=== PATIENT | male | born 1960 | race Caucasian/White ===

== ENCOUNTER 2017-11-05 09:10 | Inpatient (IN) | payer MEDICARE, OTHER ==
[~2017-11-05] VITALS: Ht 182.9 cm; Wt 64.9 kg
[~2017-11-05 09:10] MED LIST: BACLOFEN20 MG PO; BISACODYL10 MG PR; GABAPENTIN400 MG PO; IMURAN50 M1 PO; LIORESAL 10MG T10 MG PO; MIRALAX17 GM PO; OS-CAL 500 + D1 TAB PO; OS-CAL 500+D 501 TAB PO; OSCAL D 500 MG PO; OXYCODONE5 MG PO; PREDNISONE50 MG PO; SENNA CON/DOCUS1 TAB PO; Senokot S PO; VITAMIN B11000 MCG/M SC; VITAMIN D1000 UNIT PO
--- NOTE | 2017-11-05 09:23 | ED MVC/FALL/TRAUMA COMPLAINT ---
History of Present Illness General Chief Complaint: Fall Stated Complaint: BIBA S/P FALL YESTERDAY Source: patient, old records, EMS Exam Limitations: no limitations Vital Signs & Intake/Output Vital Signs & Intake/Output Vital Signs Date Time Temp Pulse Resp B/P B/P Pulse O2 O2 Flow FiO2 Mean Ox Delivery Rate 11/05 1706 97.6 126 22 98/66 95 Room Air 11/05 1459 98.1 101 15 145/73 95 Room Air Room Air 11/05 1332 99.5 102 18 128/69 94 Room Air 11/05 1115 98.1 110 15 126/68 96 Room Air Room Air 11/05 1021 98.3 11/05 1021 Room Air Room Air 11/05 0918 98.3 116 16 126/75 97 Room Air Allergies Coded Allergies: mold (04/30/16) Reconcile Medications Azathioprine (Imuran) 50 MG TABLET 3 TAB PO DAILY MS (Reported) Baclofen 10 MG TABLET 1 TAB PO TID MS (Reported) Baclofen 20 MG TABLET 1 TAB PO TID MS (Reported) Gabapentin 400 MG CAPSULE 1 CAP PO TID MS (Reported) Ibuprofen 800 MG TABLET 1 TAB PO BID PAIN (Reported) Phenytoin Sodium Extended 100 MG CAPSULE 1 CAP PO TID MS (Reported) Tramadol HCl 50 MG TABLET 1 TAB PO TID MS (Reported) Triage Note: 57 Y/O MALE KIRK FROM HOME C/O FALL YESTERDAY AND LOW BACK PAIN. PER EMS, PT HAS MS AND LIVES ALONE BUT HAS AIDE/RECORDING ARTIST. PT REPORTS HX MS AND IS LEGALLY BLIND; REPORTS HE FELL YESTERDAY AND WAS UNABLE TO GET UP. EMS FOUND PT SITTING IN CHAIR WHEN THEY ARRIVED TODAY. PT ARRIVES C/O WORSENING BACK PAIN AND DIFFICULTY URINATING. PT ARRIVES INCONTINENT WITH FOUL SMELLING URINE. AWAITING EVAL. Triage Nurses Notes Reviewed? yes Onset: Abrupt Duration: day(s): (2), constant Timing: recent history Severity: moderate, severe Severity Numbers: 10 Injuries/Fall Location: back Method of Injury: fall Loss of Consciousness: no loss of consciousness No Modifying Factors: none Associated Symptoms: denies HPI: 57-year-old male with history of MS for which she is followed by Dr. Rivas, anemia, alcohol abuse legally blind presents complaining of bilateral lower back pain since yesterday. Patient states that he's been unable to walk for the past 2-3 days secondary to an MS exacerbation. While attempting to get up out of his chair and fell sliding down and hitting his lower back. On arrival the patient is tremulous tachycardic he states his last alcoholic drink was 4 days ago. He denies history of withdrawal seizures or DTs in the past. He denies any other injury from the fall. He did not hit his head there is no loss of consciousness. He denies any headache neck or upper back pain no chest pain abdominal pain nausea vomiting. There is no prodromal dizziness light has prior to the fall. He denies any arm or leg injury from the fall. The patient states he is normally tremulous and he states that the urinary incontinence he has had is not new. His last bowel movement was about a week ago which she states is normal for him no saddle anesthesia (Piero Clay) Past History Travel History Traveled to [place] past 21 day No Medical History Any Pertinent Medical History? see below for history Neurological: multiple sclerosis EENT: blindness Cardiovascular: NONE Respiratory: NONE Gastrointestinal: constipation Hepatic: NONE Renal: NONE Musculoskeletal: ms Psychiatric: NONE Endocrine: NONE Blood Disorders: anemia Cancer(s): NONE MANAGER CATEGORY/Reproductive: NONE History of MRSA: No History of VRE: No History of CDIFF: No Tetanus Vaccine: 04/30/16 Surgical History Surgical History: non-contributory Psychosocial History What is your primary language Yemeni Tobacco Use: Current Daily Use Daily Tobacco Use Amount/Type: =< 4 Cigarettes daily ETOH Use: alcoholic Family History Hx Contributory? No (Piero Clay) Review of Systems Review of Systems Constitutional: Reports: no symptoms, see HPI. Comments Review of systems: See HPI, All other systems negative. Constitutional, no chills no fever HEENT: no sore throat no congestion, no ear pain Cardiovascular: No chest pain , no palpitation Skin: no rashes, no change in skin Respiratory: No dyspnea no cough no sputum GI: No nausea no vomiting, no diarrhea, (+) constipation : No dysuria No hematuria, frequency Muscle skeletal: No joint pain, (+) back pain, no neck pain, Neurologic: , no headache Heme/endocrine: No bruising Immunology: No lymphadenopathy (Piero Clay) Physical Exam Physical Exam General Appearance: alert, awake Comments: Well-developed well-nourished person in no acute distress HEENT: Normal EENT exam; PERRL, EOMI, HEAD is atraumatic. moist mucous membranes. Neck: Supple, nontender normal range of motion without pain or tenderness Back: Bilateral paralumbar muscle tenderness palpation no ecchymosis no midline tenderness no CVA tenderness. Full range of motion Cardiovascular: Regular rate and rhythms no murmurs rubs or gallops, normal JVP Respiratory: Chest nontender.There were no bony deformities, no asymmetry. No respiratory distress. Patient speaking in full complete sentences. Breath sounds clear to auscultation bilaterally: NO W/R/R Abdomen: Soft, nontender nondistended, no appreciable organomegaly. Normal bowel sounds. No rebound/guarding, No appreciable enlargement of the abdominal aorta, No ascites. Extremity: No edema, full range of motion of extremities, normal and equal pulses bilaterally, 5 out of 5 strength noted to bilateral upper and lower extremities Neuro: Alert oriented x3, motor sensory normal, cranial nerves II through XII grossly intact. There were no obvious focal neurologic abnormalities. Skin: No appreciable rash on exposed skin, skin is warm and dry. Psych: Mood and affect is normal, memory and judgment is normal. Core Measures ACS in differential dx? Yes CVA/TIA Diagnosis No Sepsis Present: No Sepsis Focused Exam Completed? No (Chato CASTILLO,Piero) Progress Differential Diagnosis: C/T/L spine injury, ext injury, ICH, pelvis injury, spinal cord injury, etoh abuse. etoh withdrawal Plan of Care: Orders Procedure Date/time Status CBC WITHOUT DIFFERENTIAL 11/06 0600 Active BASIC ELECTROLYTES PLUS BUN&CR 11/06 0600 Active Regular Diet 11/05 D Active Weight 11/05 1703 Active Vital Signs 11/05 1703 Active Teach/Educate 11/05 170 Active Pain Treatment and Response 11/05 170 Active Nutritional Intake, Monitor 11/05 170 Active Isolation 11/05 1703 Active Intake & Output 11/05 1703 Active Patient Care Conference 11/05 1703 Active Activity/Ambulation 11/05 1703 Active Pathway - chart 11/05 1504 Active House Staff 11/05 1504 Active Patient Data 11/05 1504 Active Patient Data 11/05 1347 Active ED Holding Orders 11/05 1207 Active Admit to inpatient 11/05 1207 Active Vital Signs 11/05 1207 Active Code Status 11/05 1207 Active BLOOD CULTURE 11/05 1123 Active Intake & Output 11/05 0946 Active CIWA 11/05 0939 Active URINE DRUG SCREEN FOR ER ONLY 11/05 0934 Complete CULTURE,URINE 11/06 923 Active URINALYSIS 11/06 923 Complete TROPONIN LEVEL 11/06 923 Complete ETHANOL 11/06 923 Complete COMPREHENSIVE METABOLIC PANEL 11/06 923 Complete CREATINE PHOSPHOKINASE 11/06 923 Complete CBC WITHOUT DIFFERENTIAL 11/06 923 Complete EKG 11/05 920 Active VTE Mechanical Prophylaxis 11/05 UNK Active Current Medications Sig/Monica Start time Last Medication Dose Stop Time Status Admin Lubiprostone 24 MCG DAILY 11/05 1615 AC (Amitiza) Acetaminophen 1,000 MG TID 11/05 1515 AC 11/05 (Ofirmev) 11/06 1514 1702 Ibuprofen 800 MG BID PRN 11/05 1515 AC (Motrin) Azathioprine 150 MG DAILY 11/05 1505 AC (Imuran 50MG Tab) Baclofen 10 MG TID 11/05 1505 AC (Lioresal 10MG Tablet) Gabapentin 400 MG TID 11/05 1505 AC (Neurontin) Phenytoin 100 MG TID 11/05 1505 AC (Dilantin ER) Tramadol HCl 50 MG TID PRN 11/05 1505 AC (Ultram) Enoxaparin Sodium 40 MG DAILY 11/05 1504 AC (Lovenox) Laboratory Tests 11/05/17 1016: Urine Opiates Screen < 100, Methadone Screen < 40, Barbiturate Screen 65, Ur Phencyclidine Scrn < 6.00, Amphetamines Screen < 100, U Benzodiazepines Scrn < 85, Urine Cocaine Screen < 50, Urine Cannabis Screen < 5.00, Urinalysis LIGHT H , Urine Color YEL, Urine Clarity HAZY H, Urine pH 7.0, Ur Specific [place] 1.020, Urine Protein 100 H, Urine Ketones TRACE H, Urine Nitrite POS H, Urine Bilirubin NEG, Urine Urobilinogen 1.0, Ur Leukocyte Esterase MOD H, Ur Microscopic SEDIMENT EXAMINED, Urine RBC 5-10 H, Urine WBC PACKD H, Ur Epithelial Cells RARE, Urine Bacteria MANY H, Urine Hemoglobin MOD H, Urine Glucose NEG 11/05/17 0942: Anion Gap 11, Estimated GFR > 60, BUN/Creatinine Ratio 20.0, Glucose 119 H, Calcium 9.3, Total Bilirubin 0.7, AST 11 L, ALT 11 L, Alkaline Phosphatase 106 , Creatine Kinase 54 L, Troponin I 0.01, Total Protein 7.3, Albumin 4.2, Globulin 3.1, Albumin/Globulin Ratio 1.4, CBC w Diff NO MAN DIFF REQ, RBC 3.91 L, MCV 98.2 H, MCH 33.8 H, MCHC 34.5, RDW 16.1 H, MPV 7.9, Gran % 83.2 H, Lymphocytes % 9.1 L, Monocytes % 7.5, Eosinophils % 0.1, Basophils % 0.1, Absolute Granulocytes 5.9, Absolute Lymphocytes 0.6 L, Absolute Monocytes 0.5, Absolute Eosinophils 0, Absolute Basophils 0, Serum Alcohol < 10.0 Microbiology 11/05 1135 BLOOD: Blood Culture - RECD 11/05 1130 BLOOD: Blood Culture - RECD 11/05 1016 URINE ROUT: Urine Culture - RECD Labs ordered old records reviewed patient is declining anything for pain when offered call placed to dr rivas 11/05/2017 12:03:33 PM on repeat evaluation patient resting completely denies pain at this time with Tylenol discussed with him his CAT scan findings lab work given patient is unable to walk he is a fall risk premature discharge medically harmful if he is in agreement with for admission case d/w dr novoa will admit Diagnostic Imaging: Viewed by Me: CT Scan. Discussed w/RAD: CT Scan. Radiology Impression: PATIENT: DIANE THOMAS PRESENT AGE: 57 PATIENT ACCOUNT NO: [id number] : 62 LOCATION: [facility] ORDERING PHYSICIAN: Piero CASTILLO SERVICE DATE: 11/05/17 EXAM TYPE: CAT - CT HEAD WO IV CONTRAST EXAMINATION: CT HEAD WITHOUT CONTRAST CLINICAL INFORMATION: Fall. Back pain. COMPARISON: CT head 02/05/2016. TECHNIQUE: Contiguous axial imaging was performed from the skull base to vertex without intravenous administration of contrast. DLP: 795.68 mGy-cm FINDINGS: There is no acute intracranial hemorrhage or abnormal extra-axial collection. No intracranial mass effect or midline shift. Lateral and third ventricles are proportionate to the subarachnoid spaces. No hydrocephalus. Scattered foci of hypoattenuation are visualized within the periventricular white matter that most likely represent a chronic manifestation of small vessel ischemia. [place]-white matter differentiation is otherwise grossly preserved and there is no evidence of acute territorial infarct. The calvarium and skull base are intact. Mastoid air cells and middle ear cavities are well aerated. Visualized paranasal sinuses are well aerated. IMPRESSION: Scattered chronic small vessel ischemic changes within the periventricular white matter. No evidence of acute territorial infarct or hemorrhage. DICTATED BY: Jairo Duff MD DATE/TIME DICTATED:11/05/171133 JEWEL SORTER:JEFF DATE/TIME TRANSCRIBED:11/05/171133 CONFIDENTIAL, DO NOT COPY WITHOUT APPROPRIATE AUTHORIZATION. <Electronically signed in Other Vendor System> SIGNED BY: Jairo Duff MD 11/05/17 1140, PATIENT: DIANE THOMAS PRESENT AGE: 57 PATIENT ACCOUNT NO: [id number] : 62 LOCATION: [facility] ORDERING PHYSICIAN: Piero CASTILLO SERVICE DATE: 11/05/17 EXAM TYPE: CAT - CT LUMB SPINE WO IV CONTRAST EXAMINATION: CT LUMBAR SPINE WITHOUT CONTRAST CLINICAL INFORMATION: Low back pain status post fall. COMPARISON: Lumbar spine radiographs 06/29/2017. TECHNIQUE: Product Safety Coordinator images were obtained. CT acquisition of the lumbar spine was performed without intravenous administration of contrast. Data was reformatted into multiplanar images at the acquisition workstation. DLP: 413.77 mGy-cm FINDINGS: There is a stable appearance of the compression deformities involving T12 and L1 when compared to the lumbar spine radiographs from 06/29/2017. There are new compression fractures at L2 and L4. At L2 there is impaction of the lower endplate resulting in 50% vertebral body height loss centrally. There is subtle buckling of the posterior lower corner of the L2 vertebral body causing indentation of the ventral thecal sac. No substantial anterior wedging. At L4 there is impaction of the upper endplate resulting in 30% vertebral body height loss centrally and slight anterior wedging. No overt retropulsion of the posterior cortex. There is no spinal subluxation. Sacroiliac joints are symmetric. Limited visualization of the retroperitoneal structures reveals calcified atheromatous plaque involving abdominal aorta and iliac vessels. Psoas and paraspinal muscle groups are symmetric. IMPRESSION: There are new compression fractures of the L2 and L4 vertebral body when compared to the lumbar spine radiographs from 06/29/2017. Existing compression deformities involving T12 and L1 are unchanged. DICTATED BY: Jairo Duff MD DATE/TIME DICTATED:11/05/171135 JEWEL SORTER:JEFF DATE/TIME TRANSCRIBED:1135 CONFIDENTIAL, DO NOT COPY WITHOUT APPROPRIATE AUTHORIZATION. < Electronically signed in Other Vendor System> SIGNED BY: Jairo Duff MD 11/05/17 1146 Initial ED EKG: stach at 110, rbbb, no acute st seg changes (Piero Clay) Departure Departure Time of Disposition: 1203 Disposition: STILL A PATIENT Condition: Stable Clinical Impression Primary Impression: Compression fracture of L2 Secondary Impressions: Compression fracture of L4 lumbar vertebra, Exacerbation of multiple sclerosis, Gait instability, UTI (urinary tract infection) Referrals: Anita Ramirez MD (PCP/Family) Departure Forms: Customer Survey General Discharge Information Admission Note Spoke With: Alexandra Novoa MD Documentation of Exam: Documentation of any treatments & extenuating circumstances including Concerns Regarding Discharge (functional status, medication knowledge or non-compliance, living conditions, etc.) that warrant an admission rather than observation: [IV pain control trend labs, physical therapy and neurology consult patient is unable to walk secondary to MS exacerbation and back pain premature discharge would BE medically harmful (Piero Clay) PA/SCIENTIFIC SOFTWARE DEVELOPER Co-Sign Statement Statement: ED Attending supervision documentation- [X] I saw and evaluated the patient. I have also reviewed all the pertinent lab results and diagnostic results. I agree with the findings and the plan of care as documented in the PA's/SCIENTIFIC SOFTWARE DEVELOPER's documentation. [X] I have reviewed the ED Record and agree with the PA's/SCIENTIFIC SOFTWARE DEVELOPER's documentation. [] Additions or exceptions (if any) to the PAs/SCIENTIFIC SOFTWARE DEVELOPER's note and plan are summarized below: [Patient has multiple sclerosis. Patient is unable to ambulate. Patient has a compression fracture. Patient will require admission for MS exacerbation as well as pain control. He will need consult for Grant Rivas MD as well as physical therapy.] (Rory DIAZ,Woody Briceño) (Rory DIAZ,Woody Briceño)
[2017-11-05 10:12] LABS: ABSOLUTE BASOPHIL COUNT 0 /CUMM (0.0-0.2); ABSOLUTE EOSINOPHIL COUNT 0 /CUMM (0.0-0.7); ABSOLUTE GRANULOCYTE CT 5.9 /CUMM (1.4-6.5); ABSOLUTE LYMPH COUNT 0.6 /CUMM (1.2-3.4); ABSOLUTE MONOCYTE COUNT 0.5 /CUMM (0.10-0.60); BASOPHIL % 0.1 % (0.0-2.0); EOSINOPHIL % 0.1 % (0-5); HEMATOCRIT 38.4 % (42-52); MEAN CORPUSCULAR HGB 33.8 PG (27.0-31.0); MEAN CORPUSCULAR HGB CONC 34.5 G/DL (33.0-37.0); MEAN CORPUSCULAR VOLUME 98.2 FL (80.0-94.0); MEAN PLATELET VOLUME 7.9 FL (7.4-10.4); PLATELET COUNT 206 /CUMM (130-400); RBC DISTRIBUTION WIDTH 16.1 % (11.5-14.5); RED BLOOD CELL CT 3.91 /CUMM (4.70-6.10); WHITE BLOOD CELL COUNT 7.1 /CUMM (4.8-10.8)
[2017-11-05] MEDS ORDERED: IBUPROFEN800 M1 PO (10:40)
[2017-11-05] MEDS ORDERED: TRAMADOL HCL50 M1 PO (10:40)
[2017-11-05] MEDS ORDERED: PHENYTOIN SODI100 MG PO (10:41)
[2017-11-05] MEDS ORDERED: GABAPENTIN400 M2 PO (10:43)
[2017-11-05] MEDS ORDERED: BACLOFEN10 M1 PO (10:43)
[2017-11-05] MEDS ORDERED: BACLOFEN20 M1 PO (10:43)
[2017-11-05 11:03] LABS: GRANULOCYTE % 83.2 % (42.2-75.2)
--- NOTE | 2017-11-05 11:40 | CT SCAN REPORT ---
EXAMINATION: CT HEAD WITHOUT CONTRAST CLINICAL INFORMATION: Fall. Back pain. COMPARISON: CT head 02/05/2016. TECHNIQUE: Contiguous axial imaging was performed from the skull base to vertex without intravenous administration of contrast. DLP: 795.68 mGy-cm FINDINGS: There is no acute intracranial hemorrhage or abnormal extra-axial collection. No intracranial mass effect or midline shift. Lateral and third ventricles are proportionate to the subarachnoid spaces. No hydrocephalus. Scattered foci of hypoattenuation are visualized within the periventricular white matter that most likely represent a chronic manifestation of small vessel ischemia. [place]-white matter differentiation is otherwise grossly preserved and there is no evidence of acute territorial infarct. The calvarium and skull base are intact. Mastoid air cells and middle ear cavities are well aerated. Visualized paranasal sinuses are well aerated. IMPRESSION: Scattered chronic small vessel ischemic changes within the periventricular white matter. No evidence of acute territorial infarct or hemorrhage.
--- NOTE | 2017-11-05 11:46 | CT SCAN REPORT ---
EXAMINATION: CT LUMBAR SPINE WITHOUT CONTRAST CLINICAL INFORMATION: Low back pain status post fall. COMPARISON: Lumbar spine radiographs 06/29/2017. TECHNIQUE: Oil Well Services Supervisor images were obtained. CT acquisition of the lumbar spine was performed without intravenous administration of contrast. Data was reformatted into multiplanar images at the acquisition workstation. DLP: 413.77 mGy-cm FINDINGS: There is a stable appearance of the compression deformities involving T12 and L1 when compared to the lumbar spine radiographs from 06/29/2017. There are new compression fractures at L2 and L4. At L2 there is impaction of the lower endplate resulting in 50% vertebral body height loss centrally. There is subtle buckling of the posterior lower corner of the L2 vertebral body causing indentation of the ventral thecal sac. No substantial anterior wedging. At L4 there is impaction of the upper endplate resulting in 30% vertebral body height loss centrally and slight anterior wedging. No overt retropulsion of the posterior cortex. There is no spinal subluxation. Sacroiliac joints are symmetric. Limited visualization of the retroperitoneal structures reveals calcified atheromatous plaque involving abdominal aorta and iliac vessels. Psoas and paraspinal muscle groups are symmetric. IMPRESSION: There are new compression fractures of the L2 and L4 vertebral body when compared to the lumbar spine radiographs from 06/29/2017. Existing compression deformities involving T12 and L1 are unchanged.
--- NOTE | 2017-11-05 15:04 | History & Physical ---
[facility] 11[facility]05/17 1458: General Information and HPI MD Statement: I have seen and personally examined DIANE THOMAS and documented this H&P. The patient is a 57 year old M who presented with a patient stated chief complaint of back pain []. Source of Information: patient, old records Exam Limitations: no limitations History of Present Illness: 57 YO M legally blind, smoker (2 packs/d since the age of 13) with PMH of multiple sclerosis, constipation and chronic anemia presented to ED with chief complaint of back pain after fall. Patient reported that since yesterday he was in his usual state of health when he was trying to sit in the chair and he slipped from it and fell down. He hit his back on the floor and suddenly he noticed having pain in the back, 8/10 aggravated with movement and relieved with medication. Patient reported that he is wheelchair-bound and living in house. He has assistant chief nursing officer who helps him during the day. He reported that his neighbors helping him with shopping and cooking. Patient also reported that he is drinking alcohol for a long time and his last drink was a week ago. Patient also reported that he has constipation and his usual bowel movement is once a week or sometimes once every 2 weeks[address] Patient is seeing Dr. Muñoz for his multiple sclerosis. Patient denied chest pain, palpitation, nausea, vomiting, chills, fever, abdominal pain, lightheadedness, shortness of breath, orthopnea and dysuria. Patient denied any admission with alcohol induced seizure in the past. Patient reported that he urinates 3 times a day. Family history is not relevant. Last echocardiogram was done in 2014 with ejection fraction 60% with mild left ventricle hypertrophy. Last time he was admitted 2013 with back pain after fall. ED course: Vitals: Temperature 98.3, pulse 116, respiratory rate 16, blood pressure 126/75, oxygen saturation 97% room air Labs: WBC count 7.1, hemoglobin 13.2, hematocrit 38.4, platelet count 206, sodium 138, potassium 4.1, BUN 16, creatinine 0.8, anion gap 11, glucose 119, creatinine kinase 54, troponin 0.01, AST 11, ALT 11 Allergies/Medications Allergies: Coded Allergies: mold (04/30/16) Home Med list Azathioprine (Imuran) 50 MG TABLET 3 TAB PO DAILY MS (Reported) Baclofen 10 MG TABLET 1 TAB PO TID MS (Reported) Baclofen 20 MG TABLET 1 TAB PO TID MS (Reported) Gabapentin 400 MG CAPSULE 1 CAP PO TID MS (Reported) Ibuprofen 800 MG TABLET 1 TAB PO BID PAIN (Reported) Phenytoin Sodium Extended 100 MG CAPSULE 1 CAP PO TID MS (Reported) Tramadol HCl 50 MG TABLET 1 TAB PO TID MS (Reported) Past History Travel History Traveled to [place] past 21 day No Medical History Neurological: multiple sclerosis EENT: blindness Cardiovascular: NONE Respiratory: NONE Gastrointestinal: constipation Hepatic: NONE Renal: NONE Musculoskeletal: ms Psychiatric: NONE Endocrine: NONE Blood Disorders: anemia Cancer(s): 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 EENTM: Reports: no symptoms. Cardiovascular: Denies: chest pain, palpitations, syncope. Respiratory: Denies: cough, orthopnea, short of breath, sputum production. GI: Reports: constipation. Denies: abdominal pain, diarrhea, bowel incontinence, nausea. Genitourinary: Reports: no symptoms. Musculoskeletal: Reports: back pain. Neurological/Psychological: Reports: no symptoms. Exam & Diagnostic Data Last 24 Hrs of Vital Signs/I&O Vital Signs Date Time Temp Pulse Resp B/P B/P Pulse O2 O2 Flow FiO2 Mean Ox Delivery Rate 11/05 1332 99.5 102 18 128/69 94 Room Air 11/05 1115 98.1 110 15 126/68 96 Room Air Room Air 11/05 1021 98.3 11/05 1021 Room Air Room Air 11/05 0918 98.3 116 16 126/75 97 Room Air Intake & Output 11/05 1600 11/05 0800 11/05 0000 Intake Total Output Total Balance Patient 155 lb Weight Weight Reported by Patient Measurement Method Physical Exam General Appearance Alert, Oriented X3, Cooperative Skin No Rashes Skin Temp/Moisture Exam: Warm/Dry Sepsis Skin Exam (color): Normal for Ethnicity HEENT Atraumatic Neck Supple Cardiovascular Normal S1, Normal S2 Lungs Clear to Auscultation Abdomen Soft, No Tenderness Neurological Lower extrimity 3/5 b/l, trmors b/l hands, speech impairment Extremities NO edema of legs but b/l feet grade 1 edema. Last 24 Hrs of Labs/Julián: Laboratory Tests 11/05/17 1016: Urine Opiates Screen < 100, Methadone Screen < 40, Barbiturate Screen 65, Ur Phencyclidine Scrn < 6.00, Amphetamines Screen < 100, U Benzodiazepines Scrn < 85, Urine Cocaine Screen < 50, Urine Cannabis Screen < 5.00, Urinalysis LIGHT H , Urine Color YEL, Urine Clarity HAZY H, Urine pH 7.0, Ur Specific [place] 1.020, Urine Protein 100 H, Urine Ketones TRACE H, Urine Nitrite POS H, Urine Bilirubin NEG, Urine Urobilinogen 1.0, Ur Leukocyte Esterase MOD H, Ur Microscopic SEDIMENT EXAMINED, Urine RBC 5-10 H, Urine WBC PACKD H, Ur Epithelial Cells RARE, Urine Bacteria MANY H, Urine Hemoglobin MOD H, Urine Glucose NEG 11/05/17 0942: Anion Gap 11, Estimated GFR > 60, BUN/Creatinine Ratio 20.0, Glucose 119 H, Calcium 9.3, Total Bilirubin 0.7, AST 11 L, ALT 11 L, Alkaline Phosphatase 106 , Creatine Kinase 54 L, Troponin I 0.01, Total Protein 7.3, Albumin 4.2, Globulin 3.1, Albumin/Globulin Ratio 1.4, CBC w Diff NO MAN DIFF REQ, RBC 3.91 L, MCV 98.2 H, MCH 33.8 H, MCHC 34.5, RDW 16.1 H, MPV 7.9, Gran % 83.2 H, Lymphocytes % 9.1 L, Monocytes % 7.5, Eosinophils % 0.1, Basophils % 0.1, Absolute Granulocytes 5.9, Absolute Lymphocytes 0.6 L, Absolute Monocytes 0.5, Absolute Eosinophils 0, Absolute Basophils 0, Serum Alcohol < 10.0 Microbiology 11/05 1135 BLOOD: Blood Culture - RECD 11/05 1130 BLOOD: Blood Culture - RECD 11/05 1016 URINE ROUT: Urine Culture - RECD Assessment/Plan Assessment: 57 YO M legally blind, smoker (2 packs/d since the age of 13) with PMH of multiple sclerosis, constipation and chronic anemia presented to ED with chief complaint of back pain after fall. Patient reported that since yesterday he was in his usual state of health when he was trying to sit in the chair and he slipped from it and fell down. Wer will admitting the patient on general medicine floor to treat for following problems: Lumbar spine compression fracture after the fall: -Patient had mechanical fall and on imaging study he has L2 and L4 vertebral body compression fracture. -Pain management with IV Tylenol and tramadol -Goals of care needs to be discussed. Urine analysis: -Increased wbc count although patient is asymptomatic. -F/U urine culture -Observe off antibiotics. Constipation: -His normal routine is once a week or sometimes once every two weeks. -We will start laxatives. History of MS: -Patient has baseline speech impairment and decreased power in b/l legs. -Continue gabapentin for neuropathic pain -Continue baclofen for spasms -Continue azathioprine DVT prophylaxis: Mechanical and subtenons Lovenox CODE STATUS: Full code As Ranked By This Provider Problem List: 1. Fall 2. Vertebral compression fracture Core Measures/Misc (03/08) Acute Coronary Syndrome ACS Diagnosis: No Congestive Heart Failure Congestive Heart Failure Diagnosis No Cerebrovascular Accident CVA/TIA Diagnosis: No VTE (View Protocol) VTE Risk Factors Smoker No Mechanical VTE Prophylaxis d/t N/A MechProphylax Ordered No VTE Pharm Prophylaxis d/t NA PharmProphylax ordered Sepsis (View protocol) Sepsis Present: No Yisel Watts 11/05/17 1558: Resident Review Statement Resident Statement: examined this patient, discussed with international marketing coordinator Other Findings: Patient is a 57-year-old legally blind man with a past medical history significant for chronic MS wheelchair-bound, history of refractory constipation, conjunctivae day smoker presented to the ED after a mechanical fall. Patient reported that yesterday, while trying to sit in the chair he slipped and fell on his back. Denied any dizziness lightheadedness before and after the fall. After the fall he started having severe 8 /10 pain in the lower back, aggravated with motion, couldn't able to get up and call 911 for help. In the ER patient was noted to have excruciating low back pain and CAT scan of the lumbar spine revealed new compression fractures of the L2 and L4 vertebral body when compared to the lumbar spine radiographs from 06/29/2017. At the time of evaluation patient was lying still in the bed, reported constant lower back pain. Denies any shortness of breath palpitations chest discomfort. No nausea vomiting reported severe constipation(on amitiza). He is occasional drinker smokes on a daily basis, wheelchair-bound with aide at home Vitals on admission unremarkable to pressure 98.3,, pulse 116, respiratory rate 16, blood pressure 126/75, oxygen saturation 97% room air. General Appearance: Alert, No Acute Distress Skin: Grossly normal HEENT: PEERLA Neck: Supple, No JVD Cardiovascular: Regular Rate, Normal S1, Normal S2, No Murmurs Lungs: Clear to Auscultation, Normal Air Movement Abdomen: Normal Bowel Sounds, slight abdominal tenderness. Neurological: Slurring/difficulty in uttering words, motor strength 5 out of 5 in the upper extremities 2+5 in the lower extremities bilaterally. Sensations intact. Extremities: No swelling in the legs Vascular: Normal Pulses Assessment Severe lower back pain(New compression fractures of the L2 and L4)-status post mechanical fall Abnormal urinalysis History of MS Plan Severe lower back pain(New compression fractures of the L2 and L4)-status post mechanical fall: * Admit the patient on [facility] floor. * Adequate pain control was with the patient on scheduled IV Tylenol 1 g 3 times a day. * Physical therapy evaluation tomorrow morning patient will likely benefit from STR. * The patient continues to remain severe back pain Will consider obtaining MRI of the back and further management with vertebroplasty in future. Abnormal urinalysis: * Currently patient doesn't seem to have symptoms of any underlying urinary tract infection is urinalysis has not been changed much from previous results except for slight increase in WBC count so we will watch him off antibodies for now.. History of MS * Continue all home medications. History of severe refractory constipation * Continue amitiza DVT prophylaxis with Lovenox Pain controlled with Tylenol patient is full code
--- NOTE | 2017-11-05 16:18 | Admission Certification ---
Admission Certification Certification Statement - As attending physician, I certify that at the time of - admission, based on clinical presentation, severity of - symptoms, need for further diagnostic testing and - therapeutic interventions, and risk of adverse outcomes - without in-hospital treatment, in my clinical assessment, - this patient requires an acute hospital stay for a minimum - of two nights or longer. I have also considered psychsocial - factors such as support system, advanced age, financial - issues, cognitive issues, and failed out-patient treatments, - past re-admission history, safety of patient, and lack of - compliance as applicable. Specific rationale supporting this admission is: Fall and new compression fracture of L2 L4
--- NOTE | 2017-11-05 16:18 | PN- Att Addend ---
Attending Addendum Attending Brief Note Patient seen and examined in the emergency room. Plan of care discussed with the medical team and the patient. Available lab work and radiology test reports were reviewed. Patient is 47-year-old male with history of multiple sclerosis will be chair bound and lives by himself and has a part-time aide for assistance. He came to ED today after suffering a fall yesterday and complains of low back pain. Patient also is legally blind. Patient had difficulty transferring. Patient does not report any change in the smell of the urine. Because of legal blindness is not able to see whether urine color has changed. He does not report any recent fever chills or any abdominal pain nausea. He reports occasional vomiting but that is not new. 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 Vital Signs Date Time Temp Pulse Resp B/P B/P Pulse O2 O2 Flow FiO2 Mean Ox Delivery Rate 11/05 1459 98.1 101 15 145/73 95 Room Air Room Air 11/05 1332 99.5 102 18 128/69 94 Room Air 11/05 1115 98.1 110 15 126/68 96 Room Air Room Air 11/05 1021 98.3 11/05 1021 Room Air Room Air 11/05 0918 98.3 116 16 126/75 97 Room Air Intake & Output 11/05 1600 11/05 0800 11/05 0000 Intake Total Output Total Balance Patient 155 lb Weight Weight Reported by Patient Measurement Method Exam: General: Patient awake alert oriented without any distress CVS: S1 plus S2 without any murmur or gallops Chest: Few scattered crepitation without any wheeze. There is no respiratory distress. Abdomen: Soft non-tender, bowel sound present, no guarding or rebound HAND SIZER: Awake alert oriented is significant speech difficulty; has trouble finding words and was noted to be stuttering Extremities: No edema; no clubbing or cyanosis noted Laboratory Tests 11/05/17 1016: Urine Opiates Screen < 100, Methadone Screen < 40, Barbiturate Screen 65, Ur Phencyclidine Scrn < 6.00, Amphetamines Screen < 100, U Benzodiazepines Scrn < 85, Urine Cocaine Screen < 50, Urine Cannabis Screen < 5.00, Urinalysis LIGHT H , Urine Color YEL, Urine Clarity HAZY H, Urine pH 7.0, Ur Specific [place] 1.020, Urine Protein 100 H, Urine Ketones TRACE H, Urine Nitrite POS H, Urine Bilirubin NEG, Urine Urobilinogen 1.0, Ur Leukocyte Esterase MOD H, Ur Microscopic SEDIMENT EXAMINED, Urine RBC 5-10 H, Urine WBC PACKD H, Ur Epithelial Cells RARE, Urine Bacteria MANY H, Urine Hemoglobin MOD H, Urine Glucose NEG 11/05/17 0942: Anion Gap 11, Estimated GFR > 60, BUN/Creatinine Ratio 20.0, Glucose 119 H, Calcium 9.3, Total Bilirubin 0.7, AST 11 L, ALT 11 L, Alkaline Phosphatase 106 , Creatine Kinase 54 L, Troponin I 0.01, Total Protein 7.3, Albumin 4.2, Globulin 3.1, Albumin/Globulin Ratio 1.4, CBC w Diff NO MAN DIFF REQ, RBC 3.91 L, MCV 98.2 H, MCH 33.8 H, MCHC 34.5, RDW 16.1 H, MPV 7.9, Gran % 83.2 H, Lymphocytes % 9.1 L, Monocytes % 7.5, Eosinophils % 0.1, Basophils % 0.1, Absolute Granulocytes 5.9, Absolute Lymphocytes 0.6 L, Absolute Monocytes 0.5, Absolute Eosinophils 0, Absolute Basophils 0, Serum Alcohol < 10.0 Microbiology 11/05 1135 BLOOD: Blood Culture - RECD 11/05 1130 BLOOD: Blood Culture - RECD 11/05 1016 URINE ROUT: Urine Culture - RECD Lumbar CT scan There are new compression fractures of the L2 and L4 vertebral body when compared to the lumbar spine radiographs from 06/29/2017. Existing compression deformities involving T12 and L1 are unchanged. Head CT scan Scattered chronic small vessel ischemic changes within the periventricular white matter. No evidence of acute territorial infarct or hemorrhage. Assessment and problem list * Fall * Back pain with compression fractures of L2 and L4 * Difficulty transferring due to back pain * History of MS Plan * Patient does not report any symptoms or signs consistent with UTI, his UA appears to have normal change except for increased amount her WBCs. Therefore I will opt to watch him conservatively without any antibiotics. * Continue all home medications * PT eval to assess transfer ability * Add Tylenol or Motrin for pain control; if patient's pain is not well controlled and he continues to have severe back pain we may need to consider vertebroplasty in near future. He may need MRI to assess age of these compression fractures.
[2017-11-05 17:06] VITALS: BP 98/66
[2017-11-05 19:00] VITALS: BP 98/60
[2017-11-05 22:44] VITALS: BP 80/40
[2017-11-06] VITALS (9 sets, daily range): BP systolic 94–118; BP diastolic 56–62
--- NOTE | 2017-11-06 07:10 | PN- Housestaff ---
Subjective Follow-up For: Lumbar vertebral compression fracture after a mechanical fall. Subjective: Patient remained afebrile. Seen and examined this morning. He denied chest pain, palpitation, nausea, vomiting, chills, fever, abdominal pain and dysuria. Patient reported having back pain 8/10 and it's increasing with movement. Last night his blood pressure was dropped and he was given a bolus of normal saline after that his blood pressure is within normal limits. Right now he is hemodynamically stable alert and oriented and cooperative. We will talk to him about vertebroplasty if patient wishes to follow the treatment we will talk to IR if he qualifies for that procedure. She reported that last time he had backache and he used a lumbar brace that helped his back pain and after 2 months he discontinued using that lumbar support. Patient has baseline speech impairment due to MS that's why he has trouble in articulation. His lower extremity power is 34 x 5 as he is able to move against gravity by himself. Possibly his back pain limits his lower extremity movements. Review of Systems Constitutional: Denies: chills, fever. EENTM: Reports: no symptoms. Cardiovascular: Denies: chest pain, palpitations, syncope. Respiratory: Denies: cough, short of breath, sputum production. Gastrointestinal: Reports: constipation. Denies: abdominal pain, diarrhea, nausea, vomiting. Genitourinary: Reports: no symptoms. Musculoskeletal: Reports: back pain. Neurological/Psychological: Reports: see HPI. Objective Last 24 Hrs of Vital Signs/I&O Vital Signs Date Time Temp Pulse Resp B/P B/P Pulse O2 O2 Flow FiO2 Mean Ox Delivery Rate 11/06 0656 97.8 83 20 116/62 94 11/06 0600 97.8 83 20 116/62 11/06 0200 97.7 88 20 100/60 11/06 0021 97.6 87 18 94/60 95 0518 0000 97.6 87 18 94/60 11/05 2244 98.9 102 20 80/40 94 Room Air 11/05 1900 98.7 115 18 98/60 94 Room Air 11/05 1706 97.6 126 22 98/66 95 Room Air 11/05 1459 98.1 101 15 145/73 95 Room Air Room Air 11/05 1332 99.5 102 18 128/69 94 Room Air 11/05 1115 98.1 110 15 126/68 96 Room Air Room Air 11/05 1021 98.3 11/05 1021 Room Air Room Air Intake & Output 11/06 1600 11/06 0800 11/06 0000 Intake Total 620 200 Output Total Balance 620 200 Intake, IV 500 Intake, Oral 120 200 Patient 144 lb Weight Physical Exam General Appearance: Alert, Cooperative Skin: No Rashes Skin Temp/Moisture Exam: Warm/Dry Sepsis Skin Exam (color): Normal for Ethnicity HEENT: Atraumatic Neck: Supple Cardiovascular: Normal S1, Normal S2 Lungs: Clear to Auscultation Abdomen: Soft, No Tenderness Neurological: SPEECH IMPAIRMENT DUE TO MS, B/L LOWER 3-4/5 Extremities: No Edema Current Medications: Current Medications Sig/Monica Start time Last Medication Dose Route Stop Time Status Admin Acetaminophen 1,000 MG TID 11/05 1515 AC 11/06 IV 11/06 1514 0841 Acetaminophen 0 .STK-MED ONE 11/05 1017 DC IV Acetaminophen 1,000 MG ONCE ONE 11/05 1015 CO 11/05 N/A 1 UNIT IV 11/05 1029 1021 Alendronate Sodium 70 MG QFRI 11/06 0900 AC PO Azathioprine 150 MG DAILY 11/05 1505 AC 11/06 PO 0841 Baclofen 10 MG TID 11/05 1505 11/06 PO 0841 Ceftriaxone Sodium 0 .STK-MED ONE 11/05 1126 DC .ROUTE Ceftriaxone Sodium 1,000 MG ONCE ONE 11/05 1115 DC 11/05 IV 11/05 1116 1138 Enoxaparin Sodium 40 MG DAILY 11/05 1504 11/06 SC 0841 Gabapentin 400 MG TID 11/05 1505 AC 11/06 PO 0851 Ibuprofen 800 MG BID PRN 11/05 1515 AC 11/06 PO 0326 Ketorolac 30 MG ONCE ONE 11/05 1130 DC 11/05 Tromethamine IV 11/05 1131 1138 Ketorolac 0 .STK-MED ONE 11/05 1126 DC Tromethamine .ROUTE Lubiprostone 24 MCG DAILY 11/05 1615 AC 11/06 PO 0841 Phenytoin 100 MG TID 11/05 1505 11/06 PO 0841 Sodium Chloride 1,000 ML Q13H 11/06 0900 AC IV Sodium Chloride 500 ML BOLUS ONE 11/05 2300 DC 11/05 IV 11/05 2359 2301 Tramadol HCl 50 MG TID PRN 11/06 0900 AC PO Tramadol HCl 50 MG TID PRN 11/05 1505 DC 11/05 PO 2038 Last 24 Hrs of Lab/Julián Results Last 24 Hrs of Labs/Mics: Laboratory Tests 11/06/17 0807: Anion Gap 10, Estimated GFR > 60, BUN/Creatinine Ratio 22.9, CBC w Diff NO MAN DIFF REQ, RBC 3.18 L, MCV 98.9 H, MCH 33.7 H, MCHC 34.0, RDW 16.6 H, MPV 8.2 , Gran % 77.9 H, Lymphocytes % 11.1 L, Monocytes % 9.6 H, Eosinophils % 1.0, Basophils % 0.4, Absolute Granulocytes 3.6, Absolute Lymphocytes 0.5 L, Absolute Monocytes 0.4, Absolute Eosinophils 0, Absolute Basophils 0 Microbiology 11/05 1135 BLOOD: Blood Culture - RECD 11/05 113 BLOOD: Blood Culture - RECD Assessment/Plan Assessment: 57 YO M legally blind, smoker (2 packs/d since the age of 13) with PMH of multiple sclerosis, constipation and chronic anemia presented to ED with chief complaint of back pain after fall. Patient reported that since yesterday he was in his usual state of health when he was trying to sit in the chair and he slipped from it and fell down. We are seeing the patient for following problems: Lumbar spine compression fracture after the fall: -Patient had mechanical fall and on imaging study he has L2 and L4 vertebral body compression fracture. -Pain management with IV Tylenol and tramadol -Goals of care needs to be discussed. -We will discuss with patient about the option of vertebroplasty if patient wishes to seek that treatment options and we will have to do MRI of his back to see age of this compression fracture. We will talk to radiology about vertebroplasty if patient qualifies for that treatment option than we will follow that option. Urine analysis: -Normal WBC count. He remained afebrile and no urinary symptoms. -F/U urine culture -Observe off antibiotics. Constipation: -His normal routine is once a week or sometimes once every two weeks. -Continue laxatives. History of MS: -Patient has baseline speech impairment and decreased power in b/l legs. -Continue gabapentin for neuropathic pain -Continue baclofen for spasms -Continue azathioprine History of osteoporosis: -Patient was on alendronate in the past due to osteoporosis probably steroid- induced. -We will continue alendronate. DVT prophylaxis: Mechanical and subtenons Lovenox CODE STATUS: Full code Problem List: 1. Fall 2. Vertebral compression fracture Pain Ratin Pain Location: back Pain Goal: Remain pain free Pain Plan: pain pathway Tomorrow's Labs & Rationales: none
[2017-11-06 09:06] LABS: ABSOLUTE BASOPHIL COUNT 0 /CUMM (0.0-0.2); ABSOLUTE EOSINOPHIL COUNT 0 /CUMM (0.0-0.7); ABSOLUTE GRANULOCYTE CT 3.6 /CUMM (1.4-6.5); ABSOLUTE LYMPH COUNT 0.5 /CUMM (1.2-3.4); ABSOLUTE MONOCYTE COUNT 0.4 /CUMM (0.10-0.60); GRANULOCYTE % 77.9 % (42.2-75.2); MEAN PLATELET VOLUME 8.2 FL (7.4-10.4); WHITE BLOOD CELL COUNT 4.6 /CUMM (4.8-10.8)
[2017-11-06 09:23] LABS: BASOPHIL % 0.4 % (0.0-2.0); MEAN CORPUSCULAR HGB 33.7 PG (27.0-31.0); MEAN CORPUSCULAR VOLUME 98.9 FL (80.0-94.0); PLATELET COUNT 139 /CUMM (130-400); RBC DISTRIBUTION WIDTH 16.6 % (11.5-14.5); RED BLOOD CELL CT 3.18 /CUMM (4.70-6.10)
[2017-11-06 09:25] LABS: HEMATOCRIT 31.5 % (42-52)
--- NOTE | 2017-11-06 14:04 | Discharge Summary ---
Visit Information Visit Dates Admission Date: 11/05/17 Discharge Date: 11/09/17 Hospital Course Course Attending Physician: Bonnie DIAZ,Kip Primary Care Physician: Anita Ramirez MD Hospital Course: Patient is a 57-year-old legally blind man with a past medical history significant for chronic MS wheelchair-bound, history of refractory constipation, current everyday smoker presented to the ED after a mechanical fall. In the ER patient was noted to have excruciating low back pain and CAT scan of the lumbar spine revealed new compression fractures of the L2 and L4 vertebral body when compared to the lumbar spine radiographs from 06/29/2017. Vitals on admission were stable Pertinent labs on admission: Labs: No evidence of leukocytosis H&H stable with platelet count 206 normal BEP , BUN 16, creatinine 0.8, anion gap 11, glucose 119, creatinine kinase 54, troponin 0.01, AST 11, ALT 11 Following problems were addressed patient was on [facility] floor: Severe lower back pain(New compression fractures of the L2 and L4)-status post: mechanical fall: Patient was admitted [facility] floor. Pain was adequately controlled with high- dose Motrin and tramadol. MRI of the lumbar spine revealed Extensive edematous signal in the body of L2, consistent with an acute fracture. Less intense signal is noted in the bodies of T12 and L1, which may be consistent with acute to subacute fractures. Patient remained clinically stable during his stay in the hospital, well managed conservatively. He was evaluated for physical therapy as per recommendations was discharged to short-term rehabilitation. It was decided not to pursue with any surgical interventions in the form vertebroplasty during this admission as patient was already improving however patient was advised that in future if his pain continued to get worse follow-up with orthopedic surgery for possible vertebroplasty. Abnormal urinalysis At the time of admission patient didn't seem to have symptoms of UTI. Urinalysis had not been changed much from previous results except for slight increase in WBC count so it was decided to keep the patient off antibiotics for now. History of MS Home medications for MS were continued History of severe refractory constipation Amitiza was continued DVT prophylaxis with Lovenox Pain controlled with Tylenol patient is full code Allergies: Coded Allergies: mold (04/30/16) Significant Procedures: PATIENT: DIANE THOMAS PRESENT AGE: 57 PATIENT ACCOUNT NO: [id number] : 61 LOCATION: [facility] ORDERING PHYSICIAN: Nishi Diallo MD SERVICE DATE: 11/07/17- EXAM TYPE: MRI - MRI-LUMBAR SPINE EXAMINATION: MR LUMBAR SPINE WITHOUT CONTRAST CLINICAL INFORMATION: Assess age of fractures and plan vertebroplasty. Back pain after mechanical fall. COMPARISON: CT scan of the lumbar spine 11/05/2017. Plain films 06/29/2017. TECHNIQUE: MRI of the lumbar spine without contrast was obtained using routine sequences. FINDINGS: VERTEBRAL BODIES AND PARASPINAL STRUCTURES: The study redemonstrates a sigmoid scoliosis, convex to the right in the upper lumbar region and the left more distally. There is hyperkyphosis at the thoracolumbar junction, similar compared to prior imaging. There is loss of vertebral body height involving the T12, L1, L2 and L4 vertebral bodies demonstrated on the prior CT scan. There is loss of vertebral body height anteriorly of approximately 75% of T12. There is greater than 90% loss of vertebral body height of L1. There is invagination of disc into the inferior endplate of L2 and there is loss of 40% vertebral body height. Invagination of disc with compression fracture is noted in the superior body of L4 with loss of vertebral body height anteriorly of approximately 50%. There is relatively diffuse increased STIR signal involving the body of L2, consistent with a relatively acute fracture. Milder STIR signal is seen in the bodies of T12 with minimal signal in the body of L1. There is no significant edematous signal in the body of L4. There is a focus of increased T1 and T2 signal in the right transverse process of L3, consistent with a hemangioma or focal fat. Similar small foci are seen in the vertebral bodies. There is multilevel narrowing of intervertebral disc height. There is noted in the intervertebral discs at T12-L1 and L1-L2, corresponding to vacuum changes seen on prior imaging. Overall, marrow signal is heterogenous. The urinary bladder is moderately distended. CONUS MEDULLARIS AND CAUDA EQUINA: Normal, terminating at the level of L1. The lower thoracic spinal cord appears normal. The cauda equina nerve roots and filum terminale appear normal. SPINAL LEVELS: T11-T12: There is posterior protrusion of the superior body of T12 into the spinal canal, but there is no spinal cord compression or central stenosis. The neural foramina are patent. T12-L1: There is mild posterior protrusion of the superior body of L1 into the spinal canal. There is no compression of the conus and there is no central stenosis. The neural foramen on the left is narrowed. L1-L2: There is mild bilateral facet arthropathy. There is posterior protrusion of the inferior body of L1 into the spinal canal. There is no central stenosis. There is mild narrowing of the left neural foramen. L2-L3: There is mild to moderate bilateral facet arthropathy. There is posterior protrusion of the inferior body of L2 into the spinal canal, but there is no significant central stenosis. There is a posterior disc protrusion extending into the inferior neural foramina bilaterally. There is no central stenosis. L3-L4: There is moderate bilateral facet arthropathy. There is a posterior disc protrusion extending into the inferior neural foramina bilaterally. There is no central stenosis. L4-L5: There is moderate bilateral facet arthropathy. There is a posterior disc protrusion extending into the right greater than left neural foramina. There is no central stenosis. L5-S1: There is a central and right paracentral disc protrusion within annular fissure which distorts the ventral thecal sac. There is no definite impingement on the traversing S1 nerve roots. Neural foramina are patent. There is no central stenosis. IMPRESSION: 1. The study demonstrates multilevel vertebral body fractures. There is significant loss of vertebral body height as detailed above, most severe involving T12 and L1. 2. There is extensive edematous signal in the body of L2, consistent with an acute fracture. Less intense signal is noted in the bodies of T12 and L1, which may be consistent with acute to subacute fractures. The vertebral body of T4 does not demonstrate significant edematous signal to suggest an acute fracture. 3. There is severe multilevel spondylosis as described above. DICTATED BY: Jose Prado MD DATE/TIME DICTATED:11/07/171715 FORMING OPERATOR:JEFF DATE/TIME TRANSCRIBED:11/07/171715 CONFIDENTIAL, DO NOT COPY WITHOUT APPROPRIATE AUTHORIZATION. <Electronically signed in Other Vendor System> SIGNED BY: Jose Prado MD 11/07/17 7077 Disposition Summary Disposition Principal Diagnosis: Severe lower back pain(New compression fractures of the L2 and L4)-status post: mechanical fall Additional Diagnosis: Abnormal urinalysis Discharge Disposition: SNF Discharge Instructions General Discharge Information Code Status: Full Code Patient's Diet: Regular diet Patient's Activity: As tolerated Follow-Up Instructions/Appts: Follow up with pcp in one week. Please follow-up with orthopedic surgeon as outpatient for possible vertebroplasty if continue to have severe pain . Medications at Discharge Discharge Medications: Stop taking the following medications: Baclofen (Baclofen) 20 MG TABLET ORAL THREE TIMES DAILY Qty = 90 Continue taking these medications: Azathioprine (Imuran) 50 MG TABLET 3 Tablet ORAL DAILY Ibuprofen (Ibuprofen) 800 MG TABLET 1 Tablet ORAL TWICE DAILY Qty = 90 Tramadol HCl (Tramadol HCl) 50 MG TABLET 1 Tablet ORAL THREE TIMES DAILY Qty = 90 Phenytoin Sodium Extended (Phenytoin Sodium Extended) 100 MG CAPSULE 1 Capsule ORAL THREE TIMES DAILY Qty = 90 Baclofen (Baclofen) 10 MG TABLET 1 Tablet ORAL THREE TIMES DAILY Qty = 90 Gabapentin (Gabapentin) 400 MG CAPSULE 1 Capsule ORAL THREE TIMES DAILY Qty = 60 Alendronate Sodium (Alendronate Sodium) 70 MG TABLET 1 Tablet ORAL ONCE A WEEK Qty = 30 Lubiprostone (Amitiza) 24 MCG CAPSULE 1 Capsule ORAL DAILY Qty = 30 Start taking the following new medications: Cholecalciferol (Vitamin D3) 1,000 UNIT TABLET 1 Tablet ORAL DAILY Qty = 7 No Refills Lidocaine (Lidocaine) 5 % ADH..PATCH 1 Patch On the skin DAILY Qty = 30 No Refills Copies To: Ashley DIAZ,Anita Buenrostro
--- NOTE | 2017-11-06 14:09 | PN- Att Addend ---
Attending Addendum Attending Brief Note Patient seen and examined with the medical team. Plan of care discussed with the medical team and the patient. Available lab work and radiology test reports were reviewed. Patient continued to complain of lower back pain which gets worse on moving around. Denies any fever chills difficulty breathing nausea vomiting or diarrhea. Exam: General: Patient awake alert oriented without any distress CVS: S1 plus S2 without any murmur or gallops Chest: Few scattered crepitation without any wheeze. There is no respiratory distress. 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 He may need MRI to assess age of these compression fractures. * No recheck labs tomorrow Current Medications Sig/Monica Start time Last Medication Dose Route Stop Time Status Admin Acetaminophen 1,000 MG TID 11/05 1515 AC 11/06 IV 11/06 1514 0841 Alendronate Sodium 70 MG QFRI 11/06 0900 AC 11/06 PO 1104 Azathioprine 150 MG DAILY 11/05 1505 AC 11/06 PO 0841 Baclofen 10 MG TID 11/05 1505 AC 11/06 PO 0841 Bisacodyl 5 MG DAILY 11/06 1103 AC PO Enoxaparin Sodium 40 MG DAILY 11/05 1504 AC 11/06 SC 0841 Gabapentin 400 MG TID 11/05 1505 AC 11/06 PO 0851 Ibuprofen 800 MG .STK-MED ONE 11/06 0325 DC PO 11/06 0326 Ibuprofen 800 MG BID PRN 11/05 1515 AC 11/06 PO 0326 Lubiprostone 24 MCG DAILY 11/05 1615 AC 11/06 PO 0841 Phenytoin 100 MG TID 11/05 1505 AC 11/06 PO 0841 Polyethylene Glycol 17 GM DAILY 11/06 1103 AC PO Potassium Chloride 40 MEQ ONCE ONE 11/06 1115 DC PO 11/06 1116 Sodium Chloride 1,000 ML Q13H 11/06 0900 DC 11/06 IV 0935 Sodium Chloride 500 ML BOLUS ONE 11/05 2300 DC 11/05 IV 11/05 2359 2301 Tramadol HCl 50 MG TID PRN 11/06 0900 AC 11/06 PO 1110 Tramadol HCl 50 MG TID PRN 11/05 1505 DC 11/05 PO 2039 Laboratory Tests 11/06/17 0807: Anion Gap 10, Estimated GFR > 60, BUN/Creatinine Ratio 22.9, Magnesium 1.9, CBC w Diff NO MAN DIFF REQ, RBC 3.18 L, MCV 98.9 H, MCH 33.7 H, MCHC 34.0, RDW 16.6 H, MPV 8.2, Gran % 77.9 H, Lymphocytes % 11.1 L, Monocytes % 9.6 H, Eosinophils % 1.0, Basophils % 0.4, Absolute Granulocytes 3.6, Absolute Lymphocytes 0.5 L, Absolute Monocytes 0.4, Absolute Eosinophils 0, Absolute Basophils 0 11/05/17 1016: Urine Opiates Screen < 100, Methadone Screen < 40, Barbiturate Screen 65, Ur Phencyclidine Scrn < 6.00, Amphetamines Screen < 100, U Benzodiazepines Scrn < 85, Urine Cocaine Screen < 50, Urine Cannabis Screen < 5.00, Urinalysis LIGHT H , Urine Color YEL, Urine Clarity HAZY H, Urine pH 7.0, Ur Specific [place] 1.020, Urine Protein 100 H, Urine Ketones TRACE H, Urine Nitrite POS H, Urine Bilirubin NEG, Urine Urobilinogen 1.0, Ur Leukocyte Esterase MOD H, Ur Microscopic SEDIMENT EXAMINED, Urine RBC 5-10 H, Urine WBC PACKD H, Ur Epithelial Cells RARE, Urine Bacteria MANY H, Urine Hemoglobin MOD H, Urine Glucose NEG 11/05/17 0942: Anion Gap 11, Estimated GFR > 60, BUN/Creatinine Ratio 20.0, Glucose 119 H, Calcium 9.3, Total Bilirubin 0.7, AST 11 L, ALT 11 L, Alkaline Phosphatase 106 , Creatine Kinase 54 L, Troponin I 0.01, Total Protein 7.3, Albumin 4.2, Globulin 3.1, Albumin/Globulin Ratio 1.4, CBC w Diff NO MAN DIFF REQ, RBC 3.91 L, MCV 98.2 H, MCH 33.8 H, MCHC 34.5, RDW 16.1 H, MPV 7.9, Gran % 83.2 H, Lymphocytes % 9.1 L, Monocytes % 7.5, Eosinophils % 0.1, Basophils % 0.1, Absolute Granulocytes 5.9, Absolute Lymphocytes 0.6 L, Absolute Monocytes 0.5, Absolute Eosinophils 0, Absolute Basophils 0, Serum Alcohol < 10.0 Microbiology 11/05 1135 BLOOD: Blood Culture - RES 11/05 1130 BLOOD: Blood Culture - RES 11/05 1016 URINE ROUT: Urine Culture - COMP Vital Signs Date Time Temp Pulse Resp B/P B/P Pulse O2 O2 Flow FiO2 Mean Ox Delivery Rate 11/06 0800 97.8 83 20 116/62 11/06 0800 94 Room Air 11/06 0656 97.8 83 20 116/62 94 11/06 0600 97.8 83 20 116/62 11/06 0200 97.7 88 20 100/60 11/06 0021 97.6 87 18 94/60 95 11/06 0000 97.6 87 18 94/60 11/05 2244 98.9 102 20 80/40 94 Room Air 11/05 1900 98.7 115 18 98/60 94 Room Air 11/05 1706 97.6 126 22 98/66 95 Room Air 11/05 1459 98.1 101 15 145/73 95 Room Air Room Air 11/05 1332 99.5 102 18 128/69 94 Room Air Intake & Output 11/06 1600 18 0800 11/06 0000 Intake Total 125 620 200 Output Total Balance 125 620 200 Intake, IV 125 500 Intake, Oral 120 200 Patient 144 lb Weight
--- NOTE | 2017-11-07 01:06 | Event Note ---
Event Note Event Note: Patient growing GPC in pairs which may represent contamination. Patient asymptomatic with low grade fever. Will follow off antibiotics
[2017-11-07 07:31] VITALS: BP 100/70
--- NOTE | 2017-11-07 09:02 | PN- Housestaff ---
Yoel DIAZ,Nishi 11/07/17 0902: Subjective Follow-up For: Lumbar vertebral compression fracture after a mechanical fall. Subjective: Patient is lying in bed and has no complaints. He denies chest pain, palpitations, shortness of breath, nausea, vomiting. Patient has continuing back pain that is attributed to his MS but notes little pain today. Review of Systems Constitutional: Reports: no symptoms. Cardiovascular: Reports: no symptoms. Respiratory: Reports: no symptoms. Gastrointestinal: Reports: no symptoms. Genitourinary: Reports: no symptoms. Musculoskeletal: Reports: no symptoms. Skin: Reports: no symptoms. Neurological/Psychological: Reports: no symptoms. Objective Last 24 Hrs of Vital Signs/I&O Vital Signs Date Time Temp Pulse Resp B/P B/P Pulse O2 O2 Flow FiO2 Mean Ox Delivery Rate 11/07 0731 98.1 89 20 100/70 97 Room Air 11/06 2121 99.6 90 18 116/56 96 Room Air Intake & Output 11/07 1600 11/07 0800 11/07 0000 Intake Total 1800 480 480 Output Total 200 500 Balance 1800 280 -20 Intake, IV 0 Intake, Oral 1800 480 480 Number 3 1 2 Bowel Movements Output, Urine 200 500 Patient 143 lb Weight Physical Exam General Appearance: Alert, Cooperative, No Acute Distress Skin: No Rashes, No Breakdown, No Significant Lesion HEENT: Atraumatic, EOMI, Mucous Membr. moist/pink Cardiovascular: Regular Rate, Normal S2, No Murmurs Lungs: Clear to Auscultation, Normal Air Movement Abdomen: Normal Bowel Sounds, Soft, No Tenderness Neurological: speech appears to be slowed secondary to MS with a motor deficit in the lower extremities Extremities: No Clubbing, No Cyanosis, No Edema, Normal Pulses, No Tenderness/ Swelling Vascular: Normal Pulses, Pulses Symmetrical Current Medications: Current Medications Sig/Monica Start time Last Medication Dose Route Stop Time Status Admin Alendronate Sodium 70 MG QFRI 11/06 0900 AC 11/06 PO 1104 Azathioprine 150 MG DAILY 11/05 1505 AC 11/07 PO 0826 Baclofen 10 MG TID 11/05 1505 AC 11/07 PO 1228 Bisacodyl 5 MG DAILY 11/06 1103 AC 11/07 PO 0826 Enoxaparin Sodium 40 MG DAILY 11/05 1504 AC 11/07 SC 0826 Gabapentin 400 MG TID 11/05 1505 AC 11/07 PO 1228 Ibuprofen 800 MG BID PRN 11/05 1515 AC 11/07 PO 0113 Lubiprostone 24 MCG DAILY 11/05 1615 AC 11/07 PO 0826 Phenytoin 100 MG TID 11/05 1505 AC 11/07 PO 1228 Polyethylene Glycol 17 GM DAILY 11/06 1103 AC 11/07 PO 0826 Tramadol HCl 50 MG TID PRN 11/06 0900 AC 11/07 PO 1228 Vancomycin HCl 1,000 MG ONCE ONE 11/06 1914 CAN Sodium Chloride 250 ML IV 11/06 2013 Last 24 Hrs of Lab/Julián Results Last 24 Hrs of Labs/Mics: Laboratory Tests 11/07/17704: Anion Gap 11, Estimated GFR > 60, BUN/Creatinine Ratio 23.3 Assessment/Plan Assessment: 57 YO M legally blind, smoker (2 packs/d since the age of 13) with PMH of multiple sclerosis, constipation and chronic anemia presented to ED with chief complaint of back pain after fall. Patient reported that since yesterday he was in his usual state of health when he was trying to sit in the chair and he slipped from it and fell down. We are seeing the patient for following problems: Lumbar spine compression fracture after the fall: -Patient had mechanical fall and on imaging study he has L2 and L4 vertebral body compression fracture. -Pain management with IV Tylenol and tramadol -We will discuss with patient about the option of vertebroplasty if patient wishes to seek that treatment options and we will have to do MRI of his back to see age of this compression fracture. We will talk to radiology about vertebroplasty if patient qualifies for that treatment option than we will follow that option. -Follow up MRI of spine -Physical therapy evaluation for placement Urine analysis: Shows evidence of infection -Normal WBC count. He remained afebrile and no urinary symptoms. -F/U urine culture -Today her blood culture returned positive for coagulase-negative staph which is most likely a contaminant -Observe off antibiotics. Constipation: -His normal routine is once a week or sometimes once every two weeks. -Continue laxatives. History of MS: -Patient has baseline speech impairment and decreased power in b/l legs. -Continue gabapentin for neuropathic pain -Continue baclofen for spasms -Continue azathioprine History of osteoporosis: -Patient was on alendronate in the past due to osteoporosis probably steroid- induced. -We will continue alendronate. DVT prophylaxis: Mechanical and subtenons Lovenox CODE STATUS: Full code Problem List: 1. Fall 2. Multiple sclerosis Pain Ratin Pain Location: back Pain Goal: Pain 4 or less Pain Plan: pathway ofirmev and tramadol Tomorrow's Labs & Rationales: xavi Lu MD,Amir 11/07/17 1159: Attending MD Review Statement Attending Statement Attending MD Statement: examined this patient, discuss w/resident/PA/RECORDING CLERK, agreed w/resident/PA/RECORDING CLERK, reviewed EMR data (avail), discussed with nursing Attending Assessment/Plan: Mr. Ramos was seen and evaluated. Chart reviewed. very pleasant man, currently denies any pain. Reports pain adequately controlled. Will be working with PT rest of the plan as per resident's note
--- NOTE | 2017-11-07 17:34 | MRI REPORT ---
EXAMINATION: MR LUMBAR SPINE WITHOUT CONTRAST CLINICAL INFORMATION: Assess age of fractures and plan vertebroplasty. Back pain after mechanical fall. COMPARISON: CT scan of the lumbar spine 11/05/2017. Plain films 06/29/2017. TECHNIQUE: MRI of the lumbar spine without contrast was obtained using routine sequences. FINDINGS: VERTEBRAL BODIES AND PARASPINAL STRUCTURES: The study redemonstrates a sigmoid scoliosis, convex to the right in the upper lumbar region and the left more distally. There is hyperkyphosis at the thoracolumbar junction, similar compared to prior imaging. There is loss of vertebral body height involving the T12, L1, L2 and L4 vertebral bodies demonstrated on the prior CT scan. There is loss of vertebral body height anteriorly of approximately 75% of T12. There is greater than 90% loss of vertebral body height of L1. There is invagination of disc into the inferior endplate of L2 and there is loss of 40% vertebral body height. Invagination of disc with compression fracture is noted in the superior body of L4 with loss of vertebral body height anteriorly of approximately 50%. There is relatively diffuse increased STIR signal involving the body of L2, consistent with a relatively acute fracture. Milder STIR signal is seen in the bodies of T12 with minimal signal in the body of L1. There is no significant edematous signal in the body of L4. There is a focus of increased T1 and T2 signal in the right transverse process of L3, consistent with a hemangioma or focal fat. Similar small foci are seen in the vertebral bodies. There is multilevel narrowing of intervertebral disc height. There is noted in the intervertebral discs at T12-L1 and L1-L2, corresponding to vacuum changes seen on prior imaging. Overall, marrow signal is heterogenous. The urinary bladder is moderately distended. CONUS MEDULLARIS AND CAUDA EQUINA: Normal, terminating at the level of L1. The lower thoracic spinal cord appears normal. The cauda equina nerve roots and filum terminale appear normal. SPINAL LEVELS: T11-T12: There is posterior protrusion of the superior body of T12 into the spinal canal, but there is no spinal cord compression or central stenosis. The neural foramina are patent. T12-L1: There is mild posterior protrusion of the superior body of L1 into the spinal canal. There is no compression of the conus and there is no central stenosis. The neural foramen on the left is narrowed. L1-L2: There is mild bilateral facet arthropathy. There is posterior protrusion of the inferior body of L1 into the spinal canal. There is no central stenosis. There is mild narrowing of the left neural foramen. L2-L3: There is mild to moderate bilateral facet arthropathy. There is posterior protrusion of the inferior body of L2 into the spinal canal, but there is no significant central stenosis. There is a posterior disc protrusion extending into the inferior neural foramina bilaterally. There is no central stenosis. L3-L4: There is moderate bilateral facet arthropathy. There is a posterior disc protrusion extending into the inferior neural foramina bilaterally. There is no central stenosis. L4-L5: There is moderate bilateral facet arthropathy. There is a posterior disc protrusion extending into the right greater than left neural foramina. There is no central stenosis. L5-S1: There is a central and right paracentral disc protrusion within annular fissure which distorts the ventral thecal sac. There is no definite impingement on the traversing S1 nerve roots. Neural foramina are patent. There is no central stenosis. IMPRESSION: 1. The study demonstrates multilevel vertebral body fractures. There is significant loss of vertebral body height as detailed above, most severe involving T12 and L1. 2. There is extensive edematous signal in the body of L2, consistent with an acute fracture. Less intense signal is noted in the bodies of T12 and L1, which may be consistent with acute to subacute fractures. The vertebral body of T4 does not demonstrate significant edematous signal to suggest an acute fracture. 3. There is severe multilevel spondylosis as described above.
[2017-11-07 22:46] VITALS: BP 132/86
[2017-11-08 06:57] VITALS: BP 134/73
[2017-11-08 08:38] LABS: ABSOLUTE BASOPHIL COUNT 0 /CUMM (0.0-0.2); ABSOLUTE EOSINOPHIL COUNT 0 /CUMM (0.0-0.7); ABSOLUTE GRANULOCYTE CT 2.7 /CUMM (1.4-6.5); ABSOLUTE LYMPH COUNT 0.8 /CUMM (1.2-3.4); ABSOLUTE MONOCYTE COUNT 0.5 /CUMM (0.10-0.60); BASOPHIL % 0.6 % (0.0-2.0); EOSINOPHIL % 0.9 % (0-5); GRANULOCYTE % 67.1 % (42.2-75.2); HEMATOCRIT 32.5 % (42-52); MEAN CORPUSCULAR HGB 33.9 PG (27.0-31.0); MEAN CORPUSCULAR HGB CONC 34.3 G/DL (33.0-37.0); MEAN PLATELET VOLUME 8.4 FL (7.4-10.4); PLATELET COUNT 146 /CUMM (130-400); RBC DISTRIBUTION WIDTH 17.5 % (11.5-14.5); RED BLOOD CELL CT 3.28 /CUMM (4.70-6.10)
--- NOTE | 2017-11-08 10:14 | PN- Housestaff ---
Yoel DIAZ,Nishi 11/08/17 1014: Subjective Follow-up For: Lumbar vertebral compression fracture after a mechanical fall. Subjective: Patient continues to have some back pain but notes that it's better than before. Otherwise patient is stable with no complaints. Review of Systems Constitutional: Reports: no symptoms. EENTM: Reports: no symptoms. Cardiovascular: Reports: no symptoms. Respiratory: Reports: no symptoms. Gastrointestinal: Reports: no symptoms. Genitourinary: Reports: no symptoms. Musculoskeletal: Reports: back pain. Skin: Reports: no symptoms. Neurological/Psychological: Reports: no symptoms. Objective Last 24 Hrs of Vital Signs/I&O Vital Signs Date Time Temp Pulse Resp B/P B/P Pulse O2 O2 Flow FiO2 Mean Ox Delivery Rate 11/08 0657 98.5 87 20 134/73 97 Room Air 11/07 2246 99.9 99 20 132/86 95 Room Air Intake & Output 11/08 1600 11/08 0800 11/08 0000 Intake Total 600 480 Output Total 150 Balance 450 480 Intake, Oral 600 480 Output, Urine 150 Physical Exam General Appearance: Alert, Cooperative, No Acute Distress Skin: No Rashes, No Breakdown, No Significant Lesion HEENT: Atraumatic, EOMI, Mucous Membr. moist/pink Neck: No JVD Cardiovascular: Regular Rate, Normal S1, Normal S2, No Murmurs Abdomen: Normal Bowel Sounds, Soft, No Tenderness Neurological: Normal Speech Extremities: No Clubbing, No Cyanosis, No Edema Current Medications: Current Medications Sig/Monica Start time Last Medication Dose Route Stop Time Status Admin Alendronate Sodium 70 MG QFRI 11/06 0900 AC 11/06 PO 1104 Azathioprine 150 MG DAILY 11/05 1505 AC 11/08 PO 0923 Baclofen 10 MG TID 11/05 1505 AC 11/08 PO 0923 Bisacodyl 5 MG DAILY 11/06 1103 AC 11/08 PO 0924 Enoxaparin Sodium 40 MG DAILY 11/05 1504 AC 11/08 SC 0924 Gabapentin 400 MG TID 11/05 1505 AC 11/08 PO 0924 Ibuprofen 800 MG BID PRN 11/05 1515 AC 11/08 PO 0041 Lubiprostone 24 MCG DAILY 11/05 1615 AC 11/08 PO 0924 Phenytoin 100 MG TID 11/05 1505 AC 11/08 PO 0923 Polyethylene Glycol 17 GM DAILY 11/06 1103 AC 11/07 PO 0826 Tramadol HCl 50 MG TID PRN 11/06 0900 AC 11/08 PO 0434 Last 24 Hrs of Lab/Julián Results Last 24 Hrs of Labs/Mics: Laboratory Tests 11/08/17 0700: CBC w Diff NO MAN DIFF REQ, RBC 3.28 L, MCV 99.0 H, MCH 33.9 H, MCHC 34.3, RDW 17.5 H, MPV 8.4, Gran % 67.1, Lymphocytes % 19.6 L, Monocytes % 11.8 H, Eosinophils % 0.9, Basophils % 0.6, Absolute Granulocytes 2.7, Absolute Lymphocytes 0.8 L, Absolute Monocytes 0.5, Absolute Eosinophils 0, Absolute Basophils 0 Assessment/Plan Assessment: 57 YO M legally blind, smoker (2 packs/d since the age of 13) with PMH of multiple sclerosis, constipation and chronic anemia presented to ED with chief complaint of back pain after fall. Patient reported that since yesterday he was in his usual state of health when he was trying to sit in the chair and he slipped from it and fell down. We are seeing the patient for following problems: Lumbar spine compression fracture after the fall: -Patient had mechanical fall and on imaging study he has L2 and L4 vertebral body compression fracture. -Pain management with IV Tylenol and tramadol -We will discuss with patient about the option of vertebroplasty if patient wishes to seek that treatment options and we will have to do MRI of his back to see age of this compression fracture. We will talk to radiology about vertebroplasty if patient qualifies for that treatment option than we will follow that option. -MRI of spine found multilevel vertebral body fractures and loss of vertebral body height. Acute fracture and L2 and subacute/acute fractures in T12 and L1 with multilevel spondylosis. -Physical therapy evaluation - STR Urine analysis: Shows evidence of infection -Normal WBC count. He remained afebrile and no urinary symptoms. -F/U urine culture -Today her blood culture returned positive for coagulase-negative staph which is most likely a contaminant -Observe off antibiotics. Constipation: -His normal routine is once a week or sometimes once every two weeks. -Continue laxatives. History of MS: -Patient has baseline speech impairment and decreased power in b/l legs. -Continue gabapentin for neuropathic pain -Continue baclofen for spasms -Continue azathioprine History of osteoporosis: -Patient was on alendronate in the past due to osteoporosis probably steroid- induced. -We will continue alendronate. DVT prophylaxis: Mechanical and subtenons Lovenox CODE STATUS: Full code Problem List: 1. Fall 2. Vertebral compression fracture Pain Ratin Pain Location: lower back Pain Goal: Pain 4 or less Pain Plan: pathway Tomorrow's Labs & Rationales: reyes Lu MD,Amir 11/08/17 1229: Attending MD Review Statement Attending Statement Attending MD Statement: examined this patient, discuss w/resident/PA/[employer]PUT[employer], agreed w/resident/PA/[employer] DEPUTY, reviewed EMR data (avail), discussed with nursing Attending Assessment/Plan: No overnight issues reported. Very pleasant man, currently denies any pain. Reports pain adequately controlled. Will be working with PT
[2017-11-08 21:53] VITALS: BP 124/76
[2017-11-09 06:22] VITALS: BP 106/72
--- NOTE | 2017-11-09 07:05 | PN- Housestaff ---
Subjective Follow-up For: Back pain due to lumbar vertebra compression fracture after a mechanical fall. Subjective: No overnight events. Patient remained afebrile. seen and examined this morning. Patient denied chest pain, short of breath, nausea, vomiting, chills, fever, abdominal pain dysuria. He has speech impairment due to MS. Patient reported pain in the back /10. He reported that his pain is better controlled with pain medication. Patient still wants to pursue vertebroplasty procedure. As his pain is better control with pain meds so we will defer vertebroplasty for future if his back pain wouldn't control with pain medications. We are going to discharge him to short-term rehabilitation. Review of Systems Constitutional: Denies: chills, fever. EENTM: Reports: no symptoms. Cardiovascular: Denies: chest pain, orthopena, palpitations. Respiratory: Denies: cough, short of breath, sputum production. Gastrointestinal: Denies: abdominal pain, constipation, diarrhea, nausea, vomiting. Genitourinary: Reports: no symptoms. Neurological/Psychological: Reports: no symptoms. Objective Last 24 Hrs of Vital Signs/I&O Vital Signs Date Time Temp Pulse Resp B/P B/P Pulse O2 O2 Flow FiO2 Mean Ox Delivery Rate 11/09 0622 98.5 83 20 106/72 95 Room Air 11/08 2153 98.3 92 20 124/76 95 Room Air Intake & Output 11/09 1600 11/09 0800 11/09 0000 Intake Total Output Total 400 250 Balance -400 -250 Number 2 Bowel Movements Output, Urine 400 250 Physical Exam General Appearance: Alert, Oriented X3, Cooperative Skin Temp/Moisture Exam: Warm/Dry Sepsis Skin Exam (color): Normal for Ethnicity HEENT: Atraumatic, EOMI Neck: Supple Cardiovascular: Normal S1, Normal S2 Lungs: Clear to Auscultation Abdomen: Soft, No Tenderness Neurological: speech impairment due to ms, b/l lower extemity power 4/5 Extremities: No Edema Assessment/Plan Assessment: 57 YO M legally blind, smoker (2 packs/d since the age of 13) with PMH of multiple sclerosis, constipation and chronic anemia presented to ED with chief complaint of back pain after fall. Patient reported that since yesterday he was in his usual state of health when he was trying to sit in the chair and he slipped from it and fell down. We are seeing the patient for following problems: Lumbar spine compression fracture after the fall: -Patient had mechanical fall and on imaging study he has L2 and L4 vertebral body compression fracture. -Pain management with IV Tylenol and tramadol -Patient wants to pursue vertebroplasty. Although his pain is better controlled with pain medications. We will talk to radiology about vertebroplasty. -MRI of spine found multilevel vertebral body fractures and loss of vertebral body height. Acute fracture and L2 and subacute/acute fractures in T12 and L1 with multilevel spondylosis. -PT recommended short-term rehabilitation. -His blood culture is showing coagulase-negative staph aureus probably due to contamination. Urine analysis: -Normal WBC count. He remained afebrile and no urinary symptoms. -Contamination of the urine culture -Observe off antibiotics. Constipation: -His normal routine is once a week or sometimes once every two weeks. -Continue laxatives. History of MS: -Patient has baseline speech impairment. -Continue gabapentin for neuropathic pain -Continue baclofen for spasms -Continue azathioprine History of osteoporosis: -Patient was on alendronate in the past due to osteoporosis probably steroid- induced. -Continue alendronate. -Start vitamin D and will continue it for 7 more days. DVT prophylaxis: Mechanical and subtenons Lovenox CODE STATUS: Full code Problem List: 1. Fall 2. Vertebral compression fracture Pain Ratin Pain Location: BACK Pain Goal: Remain pain free Pain Plan: PAIN PATHWAY Tomorrow's Labs & Rationales: NONE
--- NOTE | 2017-11-09 11:26 | Patient Discharge Instructions ---
Discharge Instructions General Discharge Information You were seen/treated for: Back pain due to lumber compression fracture after a mechanical fall. Watch for these problems: Increase in severity of back pain, difficulty in urination, difficulty in controlling the bowel movement, nausea, vomiting, altered mental status, abdominal pain and dysuria. If you experience any of these symptoms please come to ED or call to pcp. Special Instructions: Follow up with pcp in one week. Diet Recommended Diet: Regular Activity Activity Self Limited: Yes Acute Coronary Syndrome Inclusion Criteria At DC or during hospital stay patient has or had the following: ACS DIAGNOSIS No Discharge Core Measures Meds if any: Prescribed or Continued at Discharge Meds if any: NOT Prescribed or Continued at Discharge Congestive Heart Failure Inclusion Criteria At DC or during hospital stay patient has or had the following: CHF DIAGNOSIS No Discharge Core Measures Meds if any: Prescribed or Continued at Discharge Meds if any: NOT Prescribed or Continued at Discharge Cerebrovascular accident Inclusion Criteria At DC or during hospital stay patient has or had the following: CVA/TIA Diagnosis No Discharge Core Measures Meds if any: Prescribed or Continued at Discharge Meds if any: NOT Prescribed or Continued at Discharge Venous thromboembolism Inclusion Criteria VTE Diagnosis No VTE Type NONE VTE Confirmed by (Test) NONE Discharge Core Measures - Per Current guidelines, there needs to be overlap - treatment for the first 5 days of Warfarin therapy. - If discharged on Warfarin prior to 5 days of - overlap therapy, the patient will need to be - assessed for post discharge needs including - *Post discharge parental anticoagulation - *Warfarin and/or parental anticoagulation education - *Follow up date to check INR post discharge At least 5 days overlap therapy as Inpatient No Meds if any: Prescribed or Continued at Discharge Note: Overlap Therapy is Warfarin and Anticoagulant Meds if any: NOT Prescribed or Continued at Discharge
[2017-11-09] MEDS ORDERED: VITAMIN D31000 UNI2 PO (11:27)
[2017-11-09] MEDS ORDERED: ALENDRONATE SOD70 M2 PO (11:30)
[2017-11-09] MEDS ORDERED: AMITIZA24 MC1 PO (11:32)
--- NOTE | 2017-11-09 11:42 | PN- Att Addend ---
Attending Addendum Attending Brief Note Patient seen and examined with the medical team. Plan of care discussed with the medical team and the patient. Available lab work and radiology test reports were reviewed. His pain appears to be better controlled today. He does report increasing pain when moving around however he had not had physical therapy since last Thursday. He appears more comfortable at rest. Denies any nausea vomiting difficulty breathing or chest pains or abdominal pain. Exam: General: Patient awake alert oriented without any distress; patient is legally blind CVS: S1 plus S2 without any murmur or gallops Chest: Few scattered crepitation without any wheeze. There is no respiratory distress. Abdomen: Soft non-tender, bowel sound present, no guarding or rebound [employer]: Awake alert oriented is significant speech difficulty; has trouble finding words and was noted to be stuttering Extremities: No edema; no clubbing or cyanosis noted Assessment and problem list * Fall * Back pain with compression fractures of L2 and L4; MRI shows acute fracture of L2 * Difficulty transferring due to back pain * History of MS * Osteoporosis of spine Plan * Continue physical therapy * Continue Neurontin, Tylenol or Motrin and tramadol for pain control; if patient's pain is not well controlled and he continues to have severe back pain we may need to consider vertebroplasty in near future. Since his pain has improved at this point we will defer vertebroplasty. * Patient can be discharged to short-term rehabilitation bed is available * Continue alendronate and add vitamin D for osteoporosis Current Medications Sig/Monica Start time Last Medication Dose Route Stop Time Status Admin Alendronate Sodium 70 MG QFRI 11/06 09 AC 11/06 PO 1104 Azathioprine 150 MG DAILY 11/05 1505 AC 11/09 PO 0833 Baclofen 10 MG TID 11/05 1505 AC 11/09 PO 0833 Bisacodyl 5 MG DAILY 11/06 1103 AC 11/09 PO 0833 Cholecalciferol 1,000 IU DAILY 11/09 0900 AC 11/09 PO 1130 Enoxaparin Sodium 40 MG DAILY 11/05 1504 AC 11/09 SC 0833 Gabapentin 400 MG TID 11/05 1505 AC 11/09 PO 0833 Ibuprofen 800 MG .STK-MED ONE 11/09 0025 DC PO 11/09 0026 Ibuprofen 800 MG BID PRN 11/05 1515 AC 11/09 PO 0027 Lubiprostone 24 MCG DAILY 11/05 1615 AC 11/09 PO 0833 Phenytoin 100 MG TID 11/05 1505 AC 11/09 PO 0833 Polyethylene Glycol 17 GM DAILY 11/06 1103 AC 11/09 PO 0833 Tramadol HCl 50 MG TID PRN 11/06 0900 AC 11/09 PO 08 Laboratory Tests 11/08/17 0700: CBC w Diff NO MAN DIFF REQ, RBC 3.28 L, MCV 99.0 H, MCH 33.9 H, MCHC 34.3, RDW 17.5 H, MPV 8.4, Gran % 67.1, Lymphocytes % 19.6 L, Monocytes % 11.8 H, Eosinophils % 0.9, Basophils % 0.6, Absolute Granulocytes 2.7, Absolute Lymphocytes 0.8 L, Absolute Monocytes 0.5, Absolute Eosinophils 0, Absolute Basophils 0 11/07/17 0705: Anion Gap 11, Estimated GFR > 60, BUN/Creatinine Ratio 23.3 Vital Signs Date Time Temp Pulse Resp B/P B/P Pulse O2 O2 Flow FiO2 Mean Ox Delivery Rate 11/09 0622 98.5 83 20 106/72 95 Room Air 11/08 2153 98.3 92 20 124/76 95 Room Air Intake & Output 11/09 1600 11/09 0800 11/09 0000 Intake Total Output Total 400 250 Balance -400 -250 Number 2 Bowel Movements Output, Urine 400 250 Total time spent in preparation for discharge plan, patient education, and CMR preparation was 35 minutes.
[2017-11-09] MEDS ORDERED: LIDOCAINE1 EACH TOP (12:29)
[2017-11-09 23:25] VITALS: BP 122/78
[2017-11-10 07:18] VITALS: BP 106/71
--- NOTE | 2017-11-10 07:37 | PN- Housestaff ---
Subjective Follow-up For: Compression fracture after the fall Subjective: Seen and examined. Complain being adequately controlled. Stable to be discharged today. Review of Systems Constitutional: Reports: see HPI. Objective Last 24 Hrs of Vital Signs/I&O Vital Signs Date Time Temp Pulse Resp B/P B/P Pulse O2 O2 Flow FiO2 Mean Ox Delivery Rate 11/10 1252 98.6 87 20 106/71 11/10 0718 98.6 87 20 106/71 96 Room Air 11/09 2325 99.0 97 20 122/78 94 Room Air Intake & Output 11/10 1600 11/10 0800 11/10 0000 Intake Total 480 240 Output Total 200 500 Balance -200 -20 240 Intake, Oral 480 240 Output, Urine 200 500 Physical Exam General Appearance: Alert, Oriented X3 Cardiovascular: Normal S1, Normal S2 Lungs: Clear to Auscultation, Normal Air Movement Abdomen: Normal Bowel Sounds Neurological: Normal Speech Current Medications: Current Medications Sig/Monica Start time Last Medication Dose Route Stop Time Status Admin Alendronate Sodium 70 MG QFRI 11/06 0900 DCD 11/06 PO 1104 Azathioprine 150 MG DAILY 11/05 1505 DCD 11/10 PO 0832 Baclofen 10 MG TID 11/05 1505 DCD 11/10 PO 0832 Bisacodyl 5 MG DAILY 11/06 1103 DCD 11/10 PO 0832 Cholecalciferol 1,000 IU DAILY 11/09 0900 DCD 11/10 PO 0832 Enoxaparin Sodium 40 MG DAILY 11/05 1504 DCD 11/10 SC 0831 Gabapentin 400 MG TID 11/05 1505 DCD 11/10 PO 0832 Ibuprofen 800 MG BID PRN 11/05 1515 DCD 11/09 PO 0027 Lubiprostone 24 MCG DAILY 11/05 1615 DCD 11/10 PO 0832 Phenytoin 100 MG TID 11/05 1505 DCD 11/10 PO 0832 Polyethylene Glycol 17 GM DAILY 11/06 1103 DCD 11/10 PO 0832 Tramadol HCl 50 MG TID PRN 11/06 0900 DCD 11/10 PO 0841 Assessment/Plan Assessment: 57 YO M legally blind, smoker (2 packs/d since the age of 13) with PMH of multiple sclerosis, constipation and chronic anemia presented to ED with chief complaint of back pain after fall. Patient reported that since yesterday he was in his usual state of health when he was trying to sit in the chair and he slipped from it and fell down. Patient is stable to be discharged to short-term rehabilitation. During his stay in the hospital he was treated evaluated for following conditions. Lumbar spine compression fracture after the fall: -Patient had mechanical fall and on imaging study he has L2 and L4 vertebral body compression fracture. -Pain management with IV Tylenol and tramadol -Patient wants to pursue vertebroplasty. Although his pain is better controlled with pain medications. We will talk to radiology about vertebroplasty. -MRI of spine found multilevel vertebral body fractures and loss of vertebral body height. Acute fracture and L2 and subacute/acute fractures in T12 and L1 with multilevel spondylosis. -PT recommended short-term rehabilitation. -His blood culture is showing coagulase-negative staph aureus probably due to contamination. Urine analysis: -Normal WBC count. He remained afebrile and no urinary symptoms. -Contamination of the urine culture -Observe off antibiotics. Constipation: -His normal routine is once a week or sometimes once every two weeks. -Continue laxatives. History of MS: -Patient has baseline speech impairment. -Continue gabapentin for neuropathic pain -Continue baclofen for spasms -Continue azathioprine History of osteoporosis: -Patient was on alendronate in the past due to osteoporosis probably steroid- induced. -Continue alendronate. -Start vitamin D and will continue it for 7 more days. DVT prophylaxis: Mechanical and subtenons Lovenox CODE STATUS: Full code Problem List: 1. L1 vertebral fracture Pain Ratin Pain Location: back Pain Goal: Pain 4 or less Pain Plan: prn Tomorrow's Labs & Rationales: none
--- NOTE | 2017-11-10 11:11 | PN- Att Addend ---
Attending Addendum Attending Brief Note Patient seen and examined with the medical team. Plan of care discussed with the medical team and the patient. Available lab work and radiology test reports were reviewed. He appears more comfortable at rest. Denies any nausea vomiting difficulty breathing or chest pains or abdominal pain. He refused taking stool softeners this morning. Exam: General: Patient awake alert oriented without any distress; patient is legally blind CVS: S1 plus S2 without any murmur or gallops Chest: Few scattered crepitation without any wheeze. There is no respiratory distress. Abdomen: Soft non-tender, bowel sound present, no guarding or rebound [employer]GER [employer]: Awake alert oriented; has trouble finding words and was noted to be occasionally stuttering Extremities: No edema; no clubbing or cyanosis noted Assessment and problem list * Fall * Back pain with compression fractures of L2 and L4; MRI shows acute fracture of L2- plan is to manage conservatively for now * Difficulty transferring due to back pain * History of MS * Osteoporosis of spine Plan * Continue physical therapy * Continue Neurontin, Tylenol or Motrin and tramadol for pain control; if patient's pain is not well controlled and he continues to have severe back pain we may need to consider vertebroplasty in near future. Since his pain has improved at this point we will defer vertebroplasty. * Patient can be discharged to short-term rehabilitation if bed is available * Continue alendronate and vitamin D for osteoporosis * Patient is clinically stable for discharge Current Medications Sig/Monica Start time Last Medication Dose Route Stop Time Status Admin Alendronate Sodium 70 MG QFRI 11/06 0900 AC 11/06 PO 1104 Azathioprine 150 MG DAILY 11/05 1505 AC 11/10 PO 0832 Baclofen 10 MG TID 11/05 1505 AC 11/10 PO 0832 Bisacodyl 5 MG DAILY 11/06 1103 AC 11/10 PO 0832 Cholecalciferol 1,000 IU DAILY 11/09 0900 AC 11/10 PO 0832 Enoxaparin Sodium 40 MG DAILY 11/05 1504 AC 11/10 SC 0831 Gabapentin 400 MG TID 11/05 1505 AC 11/10 PO 0832 Ibuprofen 800 MG BID PRN 11/05 1515 AC 11/09 PO 0027 Lubiprostone 24 MCG DAILY 11/05 1615 AC 11/10 PO 0832 Phenytoin 100 MG TID 05/17 1505 AC 11/10 PO 0832 Polyethylene Glycol 17 GM DAILY 11/06 1103 11/10 PO 0832 Tramadol HCl 50 MG TID PRN 11/06 0900 11/10 PO 0841 Laboratory Tests 11/08/17 0700: CBC w Diff NO MAN DIFF REQ, RBC 3.28 L, MCV 99.0 H, MCH 33.9 H, MCHC 34.3, RDW 17.5 H, MPV 8.4, Gran % 67.1, Lymphocytes % 19.6 L, Monocytes % 11.8 H, Eosinophils % 0.9, Basophils % 0.6, Absolute Granulocytes 2.7, Absolute Lymphocytes 0.8 L, Absolute Monocytes 0.5, Absolute Eosinophils 0, Absolute Basophils 0 Vital Signs Date Time Temp Pulse Resp B/P B/P Pulse O2 O2 Flow FiO2 Mean Ox Delivery Rate 11/10 0718 98.6 87 20 106/71 96 Room Air 11/09 2325 99.0 97 20 122/78 94 Room Air 11/09 1253 Room Air Room Air 11/09 1243 Room Air Room Air Intake & Output 11/10 1600 11/10 0800 11/10 0000 Intake Total 480 240 Output Total 500 Balance -20 240 Intake, Oral 480 240 Output, Urine 500 Total time spent in preparation for discharge plan, patient education, and CMR preparation was 35 minutes.
[2017-11-10 12:52] VITALS: BP 106/71
== END 2017-11-10 13:09 | DRG 552 ==
LOC: ERH 09:10 → ERHI 12:07 → 2NB 12:07 → ENRESERV 15:00 → 2NB 16:36 → ENPENDDIS 11-10 12:10 → 2NB 11-10 13:09
PROVIDERS: Physician Assistant Medical; Student in an Organized Health Care Education/Training Program
DX: S32.029A Unspecified fracture of second lumbar vertebra, initial encounter for closed fracture (principal); G35 Multiple sclerosis; S32.049A Unspecified fracture of fourth lumbar vertebra, initial encounter for closed fracture; Z91.81 History of falling; Y92.009 Unspecified place in unspecified non-institutional (private) residence as the place of occurrence of the external cause; R26.2 Difficulty in walking, not elsewhere classified; F17.200 Nicotine dependence, unspecified, uncomplicated; G89.11 Acute pain due to trauma; M54.5 Low back pain; K59.09 Other constipation; D64.9 Anemia, unspecified; H54.8 Legal blindness, as defined in USA; W07.XXXA Fall from chair, initial encounter; Z99.3 Dependence on wheelchair; F17.210 Nicotine dependence, cigarettes, uncomplicated; B95.7 Other staphylococcus as the cause of diseases classified elsewhere
CPT/HCPCS: 2NBP; 72148; 36415; 36592; 80307; 81001; 82436; 87040; 87086; 87147; 93005; 93010; 96374; 96375; 97110-GO; 97116-GO; 97161-GP; 97530-GO; G0480; J0131; J0696; J1650; J1885; J7040

== ENCOUNTER 2018-03-11 09:52 | Inpatient (IN) | payer MEDICARE, OTHER ==
[~2018-03-11] VITALS: Ht 182.9 cm; Wt 68.7 kg
[~2018-03-11 09:52] MED LIST changes: +ALENDRONATE SOD70 M2 PO; +AMITIZA24 MC1 PO; +BACLOFEN10 M1 PO; +BACLOFEN20 M1 PO; +GABAPENTIN400 M2 PO; +IBUPROFEN800 M1 PO; +LIDOCAINE1 EACH TOP; +PHENYTOIN SODI100 MG PO; +TRAMADOL HCL50 M1 PO; +VITAMIN D31000 UNI2 PO
--- NOTE | 2018-03-11 10:35 | ED GENERAL ADULT ---
History of Present Illness General Chief Complaint: General Adult Stated Complaint: WEAKNESS BACK PAIN Source: patient Exam Limitations: no limitations Allergies Coded Allergies: mold (04/30/16) Reconcile Medications Alendronate Sodium 70 MG TABLET 1 TAB PO Mo Osteoporosis (Reported) Azathioprine (Imuran) 50 MG TABLET 3 TAB PO DAILY MS (Reported) Baclofen 10 MG TABLET 1 TAB PO TID MS (Reported) Cholecalciferol (Vitamin D3) 1,000 UNIT TABLET 1 TAB PO DAILY Bone strength Gabapentin 400 MG CAPSULE 1 CAP PO TID MS (Reported) Ibuprofen 800 MG TABLET 1 TAB PO TID PAIN (Reported) Lidocaine 5 % ADH..PATCH 1 PAT TOP DAILY Back pain Lubiprostone (Amitiza) 24 MCG CAPSULE 1 CAP PO BID CONSTIPATION (Reported) Phenytoin Sodium Extended 100 MG CAPSULE 1 CAP PO TID MS (Reported) Tramadol HCl 50 MG TABLET 1 TAB PO TID PAIN (Reported) Triage Note: 57 YO MALE BIBA FROM HOME FOR EVAL OF INCREASE IN CHRONIC BACK PAIN. PT REPORTS HE HAS A HX OF MS AND USUALLY CAN GET AROUND WITH HIS WALKER. STATES SINCE YESTERDAY HE HAS HAD AN INCREASE IN HIS BACK PAIN (NO RECENT INJURY) AND STATES HE ISNT ABLE TO AMBULATE. PT STATES HE WANTED TO STAY HOME BUT HIS FAMILY AND HIS VISITNG NURSE WANTED HIM TO COME. Triage Nurses Notes Reviewed? yes HPI: 57-year-old male with past medical history of MS currently receiving treatment and compliant with medications. Patient states he was at home yesterday and experienced generalized weakness. He was unable to ambulate secondary to this weakness. He had to crawl to the bathroom and back to his chair. He was unable to pull himself up into his chair at which time he called EMS. EMS came and assisted him back to his chair but he refused to come to the emergency department at that time. This morning the patient states his weakness continued and he asked his visiting nurse to call 911. Patient states normally he is able to ambulate with a walker and cook for himself. He has been unable to do any of these things since yesterday. He denies fever, chills, n/v/d, chest pain, SOB, abdominal pain, urinary symptoms, change in bowel function. Patient reports low back pain that is chronic and unchanged from previous. Of note: patient sees Dr. Muñoz for his MS. Last seen 6 months ago; next appt in Mar. (Wendy Loyola MD) Vital Signs & Intake/Output Vital Signs & Intake/Output Vital Signs Date Time Temp Pulse Resp B/P B/P Pulse O2 O2 Flow FiO2 Mean Ox Delivery Rate 03/11 1325 98.5 108 20 168/80 99 Room Air 03/11 0958 98.4 120 18 179/82 98 Room Air (Isaiah Summers MD) Past History Travel History Traveled to [place] past 21 day No Medical History Any Pertinent Medical History? 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 No (Wendy Loyola MD) Review of Systems Review of Systems Constitutional: Reports: weakness. Denies: chills, diaphoresis, fever. EENTM: Reports: no symptoms. Respiratory: Reports: no symptoms. Cardiovascular: Reports: no symptoms. GI: Reports: no symptoms. Genitourinary: Reports: no symptoms. Musculoskeletal: Reports: no symptoms. Skin: Reports: no symptoms. Neurological/Psychological: Reports: weakness. (Wendy Loyola MD) Physical Exam Physical Exam General Appearance: no apparent distress, alert, awake, thin, dry mucous membranes Head: atraumatic, normal appearance Eyes: Bilateral: normal appearance. Ears, Nose, Throat: dry MM; poor dentition; missing teeth; dental caries Neck: normal inspection, supple Respiratory: normal breath sounds, chest non-tender, no respiratory distress Cardiovascular: tachycardia Peripheral Pulses: 2+ radial (R), 2+ radial (L) Gastrointestinal: normal bowel sounds (TTP LLQ; no rebound/guarding), soft, tenderness Extremities: normal capillary refill, no edema, limited range of motion, tax form preparer strength and BUE/BLE strength symmetrical but decreased Skin: intact, normal color, warm/dry Core Measures ACS in differential dx? No CVA/TIA Diagnosis: No Sepsis Present: No Sepsis Focused Exam Completed? No (Wendy Loyola MD) Progress Differential Diagnoses I considered the following diagnoses in my evaluation of the patient: [ dehydration, MS exacerbation, infection] Initial ED EKG: none Comments: 10:45 57 year old male with PMH MS presenting with generalized weakness below baseline; unable to ambulate or care for self. Will work up for possible infection, anemia, MS flare, dehydration. Will dose SoluMedrol 1000mg in ED, start IV fluids, await lab work up. Patient will most likely need to be admitted as he is below baseline and unable to perform ADLs. Will likely need to be seen by MS doctor while inpatient. 12:02 Labs CBC;BEP show no leukocytosis, anemia. Patient with thrombocytosis. UA pending. IV fluids running. VS improving with IV fluids. 13:48 Will contact hospitalist/MOD for admission. (Wendy Loyola MD) Plan of Care: Orders Procedure Date/time Status Regular Diet 03/11 D Active Patient Data 03/11 1409 Active Misc Message 03/11 1323 Active ED Holding Orders 03/11 1323 Active Admit to inpatient 03/11 1323 Active Vital Signs 03/11 1323 Active Code Status 03/11 1323 Active CULTURE,URINE 03/11 1044 Active URINALYSIS 03/11 1044 Active CBC WITHOUT DIFFERENTIAL 03/11 1044 Complete BASIC ELECTROLYTES PLUS BUN&CR 03/11 1044 Complete Current Medications Sig/Monica Start time Last Medication Dose Stop Time Status Admin Methylprednisolone 1,000 MG DAILY 03/11 1102 UNi 03/11 (Solu Medrol) 1248 Dextrose/Water 1,000 ML (D5W 1000) Laboratory Tests 03/11/18 1108: Anion Gap 7, Estimated GFR > 60, BUN/Creatinine Ratio 20.0, CBC w Diff MAN DIFF ORDERED, RBC 3.53 L, MCV 104.4 H, MCH 36.3 H, MCHC 34.7, RDW 18.0 H, MPV 8.3 , Gran % 83.6 H, Lymphocytes % 8.3 L, Monocytes % 7.7, Eosinophils % 0, Basophils % 0.4, Absolute Granulocytes 3.3, Absolute Lymphocytes 0.3 L, Absolute Monocytes 0.3, Absolute Eosinophils 0, Absolute Basophils 0, Platelet Estimate VERIFIED BY SMEAR, Anisocytosis 1+, Macrocytic Cells FEW Microbiology 03/11 1044 URINE ROUT: Urine Culture - ORD (Wendy Loyola MD) (Isaiah Summers MD) Departure Departure Disposition: STILL A PATIENT Condition: Stable Clinical Impression Primary Impression: Multiple sclerosis Referrals: Ashley DIAZ,Anita Buenrostro (PCP/Family) Departure Forms: Customer Survey General Discharge Information Admission Note Spoke With: Loraine Bryant MD Documentation of Exam: Documentation of any treatments & extenuating circumstances including Concerns Regarding Discharge (functional status, medication knowledge or non-compliance, living conditions, etc.) that warrant an admission rather than observation: [57 year old male with PMH MS currently experiencing MS flare. Patient is unable to ambulate or take care of himself (unable to perform ADLs). He will need to be admitted for IV steroids; neurology consult; PT consult.] (Wendy Loyola MD) Resident Co-Sign Statement Statement: ED Attending supervision documentation- [X] I saw and evaluated the patient. I have also reviewed all the pertinent lab results and diagnostic results. I agree with the findings and the plan of care as documented in the Resident's documentation. [] I have reviewed the ED Record and agree with the Resident's documentation. [] Additions or exceptions (if any) to the Resident's note and plan are summarized below: [] (Melina DIAZ,Isaiah Buenrostro) Critical Care Note Critical Care Note Critical Care Time: non-applicable (Wendy Loyola MD)
[2018-03-11 11:13] LABS: ABSOLUTE BASOPHIL COUNT 0 /CUMM (0.0-0.2); ABSOLUTE EOSINOPHIL COUNT 0 /CUMM (0.0-0.7); ABSOLUTE GRANULOCYTE CT 3.3 /CUMM (1.4-6.5); ABSOLUTE LYMPH COUNT 0.3 /CUMM (1.2-3.4); ABSOLUTE MONOCYTE COUNT 0.3 /CUMM (0.10-0.60); BASOPHIL % 0.4 % (0.0-2.0); EOSINOPHIL % 0 % (0-5); GRANULOCYTE % 83.6 % (42.2-75.2); HEMATOCRIT 36.8 % (42-52); MEAN CORPUSCULAR HGB 36.3 PG (27.0-31.0); MEAN CORPUSCULAR HGB CONC 34.7 G/DL (33.0-37.0); MEAN CORPUSCULAR VOLUME 104.4 FL (80.0-94.0); MEAN PLATELET VOLUME 8.3 FL (7.4-10.4); PLATELET COUNT 127 /CUMM (130-400); RED BLOOD CELL CT 3.53 /CUMM (4.70-6.10); WHITE BLOOD CELL COUNT 3.9 /CUMM (4.8-10.8)
--- NOTE | 2018-03-11 14:26 | History & Physical ---
ZackJoseBan 03/11/18 1425: General Information and HPI MD Statement: I have seen and personally examined DIANE THOMAS and documented this H&P. The patient is a 57 year old M who presented with a patient stated chief complaint of sudden onset lower limb weakness Source of Information: patient, police Exam Limitations: physical impairment History of Present Illness: 57 yo M with PMH of Multiple sclerosis currently on Azathioprine, Phenytoin and Baclofen presents to the ED with sudden onset bilateral lower extermity weakness. The patient is fairly independent at home and uses a walker to ambulate. He apparently got up to use the bathroom at 3 AM in the morning tow days ago. He could not stand on his feet and had to crawl to the bathroom. He deferred coming to the ER today when his symptoms failed to resolve. The patient does endorse of chronic severe back pain which he says has bene stable intensity over the last few months. He also notces numbness and tingling over his legs which started yesterday. The patient denies trauma or recent mechanical falls. He denies bowel or bladde incontinence or saddle anesthesia. Notably, the patient was admitted to [facility] in October this year with vetebral compression fractures secondary to osteoporosis possibly secondary to prolonged steroid use. He is off of steroids for his MS after discussion with his neurologist. Allergies/Medications Allergies: Coded Allergies: mold (04/30/16) Home Med list Alendronate Sodium 70 MG TABLET 1 TAB PO Mo Osteoporosis (Reported) Azathioprine (Imuran) 50 MG TABLET 3 TAB PO DAILY MS (Reported) Baclofen 10 MG TABLET 1 TAB PO TID MS (Reported) Cholecalciferol (Vitamin D3) 1,000 UNIT TABLET 1 TAB PO DAILY Bone strength Gabapentin 400 MG CAPSULE 1 CAP PO TID MS (Reported) Ibuprofen 800 MG TABLET 1 TAB PO TID PAIN (Reported) Lidocaine 5 % ADH..PATCH 1 PAT TOP DAILY Back pain Lubiprostone (Amitiza) 24 MCG CAPSULE 1 CAP PO BID CONSTIPATION (Reported) Phenytoin Sodium Extended 100 MG CAPSULE 1 CAP PO TID MS (Reported) Tramadol HCl 50 MG TABLET 1 TAB PO TID PAIN (Reported) Past History Travel History Traveled to [place] past 21 day No Medical History Neurological: multiple sclerosis EENT: blindness Cardiovascular: NONE Respiratory: NONE Gastrointestinal: constipation Hepatic: NONE Renal: NONE Musculoskeletal: ms Psychiatric: NONE Endocrine: NONE Blood Disorders: anemia Cancer(s): NONE 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 Cardiovascular: Denies: chest pain, edema, palpitations. Respiratory: Denies: cough, hemoptysis, sputum production, wheezing. GI: Denies: bloating, constipation, diarrhea, distention, bowel incontinence, bloody stool, vomiting. Genitourinary: Denies: dysuria, frequency, hematuria. Musculoskeletal: Reports: back pain, joint pain. Denies: gout, joint swelling. Skin: Denies: change in skin color, change in hair/nails. Neurological/Psychological: Reports: headache, pre-existing deficit, tingling, weakness. Exam & Diagnostic Data Last 24 Hrs of Vital Signs/I&O Vital Signs Date Time Temp Pulse Resp B/P B/P Pulse O2 O2 Flow FiO2 Mean Ox Delivery Rate 03/11 1853 97.9 98 18 124/68 94 Room Air 03/11 1757 97.9 92 14 122/58 96 Room Air 03/11 1516 102 18 112/56 99 Room Air 03/11 1325 98.5 108 20 168/80 99 Room Air 03/11 0958 98.4 120 18 179/82 98 Room Air Intake & Output 03/11 1600 03/11 0800 03/11 0000 Intake Total 0 Output Total Balance 0 Intake, Oral 0 Patient 150 lb Weight Weight Reported by Patient Measurement Method Physical Exam General Appearance Alert, Oriented X3, Cooperative, No Acute Distress Skin No Rashes, No Breakdown Skin Temp/Moisture Exam: Warm/Dry Neck Supple Cardiovascular Regular Rate, Normal S1, Normal S2, No Murmurs Lungs Clear to Auscultation Abdomen Normal Bowel Sounds, Soft, No Tenderness Neurological Sensation Intact, Cranial Nerves 3-12 NL, slurred speech, strength 4/4 bilateral, tone increased bilaterally Assessment/Plan Assessment: This is a 57 yo gentleman with past medical history of MS diagnosed 15 years ago and osteoporosis posisbly secondary to chronic steroid use presented to the ED with sudden onset bilateral lower extremity wekaness. The patient has a recent history of compression fractures of vertebrae. He does not have any alarming signs of cord compression at this time. Vitals in the ED: Temp:98.5, HR: 120-->108, RR:20, BP: 165/80, Pulse ox: 99% Labs: WBC: 3.9, Hgb: 12.8, MCV: 104.4, Plt: 127, Na:134 Problems: 1. MS exacerbation vs Acute Spinal Cord Compression Vertebral Compression Fractures 2. Osteoporosis 3. Chronic back pain 1. MS exacerbation -We would admit the patient to Gen Med service -Possible differentials MS exacerbation vs acute cord compression secondary to vertebral compression fractures -We would continue Iv Methylprednisone 1g daily for 5 days -We would inform about the admission -Continue Azathioprine 150 mg daily -Continue Baclofen 10 mg 3 times daily -Continue Gabapentin 400 3 times daily -Continue Phenytoin 100 3 times daily Osteoporosis -Patinet gets alendronate every Thursday -Continue vitamin D supplements daily chronic back pain .-Continue home medication tramadol 50 mg 3 times daily as needed for pain -Percocet as needed for severe pain -Physical therapy consult in the AM Patient is full code Regular diet DVT prophylaxis subcu heparin As Ranked By This Provider Problem List: 1. Intractable back pain 2. Vertebral compression fracture 3. Multiple sclerosis 4. Exacerbation of multiple sclerosis Core Measures/Misc (03/08) Acute Coronary Syndrome ACS Diagnosis: No Congestive Heart Failure Congestive Heart Failure Diagnosis No Cerebrovascular Accident CVA/TIA Diagnosis: No VTE (View Protocol) VTE Risk Factors Age>40 No Mechanical VTE Prophylaxis d/t N/A MechProphylax Ordered No VTE Pharm Prophylaxis d/t NA PharmProphylax ordered Sepsis (View protocol) Sepsis Present: No If YES complete Sepsis Event Note If YES complete Sepsis Event Note Thierno Watson 03/11/18 1610: Core Measures/Misc (03/08) Sepsis (View protocol) If YES complete Sepsis Event Note If YES complete Sepsis Event Note Attending MD Review Statement Attending Statement Attending MD Statement: examined this patient, discuss w/resident/PA/COMMERCIAL TIRE SERVICE TECHNICIAN, agreed w/resident/PA/COMMERCIAL TIRE SERVICE TECHNICIAN, discussed with family, reviewed EMR data (avail), discussed with nursing, discussed with case mgmt, reviewed images, amended to note Attending Assessment/Plan: Patient with pmh of MS debilitating, legally blind, wheel chair bound came with c/o generalsied weakness and diffculty to ambulate. Patient denies any focal deficits. Pateint is admitted to inpatient medical services for possible MS exacerbation. Patient will be started on iv steroids and obtain neurology consult Dr Alejandre. PT consult. Rule out hidden infection. Send UA. GI/DVT prophylaxis Full code. Barry Peters 03/11/18 1810: Core Measures/Misc (03/08) Sepsis (View protocol) If YES complete Sepsis Event Note If YES complete Sepsis Event Note Resident Review Statement Resident Statement: examined this patient, discussed with buyer intern, agreed with buyer intern, discussed with family, reviewed EMR data (avail), discussed with nursing , discussed with case mgmt, reviewed images, amended to note Other Findings: This is a 57-year-old male with past medical history significant for multiple sclerosis, osteoporosis, chronic back pain was brought in by ambulance for evaluation of lower extremity weakness and inability to ambulate for 1 day. Patient has chronic history of MS, currently following , getting treated for multiple sclerosis. He followed up with the multiple sclerosis specialist 6M ago. Patient reports that he was completely fine 2 days prior to this admission. Patient reports sudden onset of generalized weakness, leading to difficulty ambulation. He had to crawl to the bathroom and back to his chair. EMS was called yesterday, however he was refused to come to the emergency room. He was evaluated by visiting nurse this morning, given his extreme weakness and unable to ambulate 911 was called and patient was brought to the hospital. Prior to this changes, patient was able to ambulate with a walker and cook for himself. He denied any new focal neurologic weakness, sensory changes, vision changes, speech changes. Denies any headache. He also has acute on chronic back pain secondary to vertebral fractures. He was last admitted in October 2017 for mechanical fall and back pain secondary to compression fractures. He denied any fever, chills, nausea, vomiting, diarrhea, change in bladder bowel habits, chest pain, short of breath. He denies smoking, alcohol abuse, illicit drug abuse. ------ Vitals afebrile, heart rate 120, respiratory rate 18, blood pressure 168/80, saturating at 99 on room air Labs CBCs 3.9, hemoglobin 12, hematocrit 36, platelets 127 BEP normal limit Patient received 1 g of methylprednisone IV in the emergency room 1. MS exacerbation Patient presented with new onset lower extremity weakness leading to difficulty ambulation. He denied any new focal neurologic weakness, sensory changes, vision changes, speech changes. Denies any headache. Patient has chronic history of MS , currently following , getting treated for multiple sclerosis. * Possible differentials MS exacerbation versus worsening back pain secondary to fractures * Admit to general medicine * Vitals every shift * Monitor WBC count as she is he is on steroids now * Continue IV methylprednisone 1 g daily for 5 days * Consult Dr. Bennett * Physical therapy consult * Continue azathioprine 150 mg daily * Continue baclofen 10 mg 3 times daily * Continue gabapentin 400 3 times daily * Continue phenytoin 100 3 times daily Osteoporosis Gets alendronate every Thursday Continue vitamin D supplements daily chronic back pain Chronic back pain secondary to lumbar vertebral fractures. Patient takes tramadol 50 -3 times daily at home. He was last admitted in October 2017 for mechanical fall and back pain secondary to compression fractures. * Continue home medication tramadol 50 mg 3 times daily as needed for pain * Percocet as needed for severe pain * Physical therapy consult Patient is full code Regular diet Pain pathway ordered DVT prophylaxis subcu heparin
[2018-03-11 18:53] VITALS: BP 124/68
[2018-03-11 22:25] VITALS: BP 117/63
[2018-03-12] VITALS (7 sets, daily range): BP systolic 100–120; BP diastolic 55–85
--- NOTE | 2018-03-12 07:47 | PN- Housestaff ---
Peter Osbornei 03/12/18 0746: Subjective Follow-up For: MS sclerosis exacerbation vs Spinal Cord Compression Subjective: Patient was seen and examined at bedside. He has been having repeated panic attack since morning. He needed two people to hold him down to calm him. He has been having constant diffuse muscle spasms with increased tone throughout. He is worried he might fall and has been firmly gripping onto the sides of the bed. Review of Systems Constitutional: Reports: see HPI. Objective Last 24 Hrs of Vital Signs/I&O Vital Signs Date Time Temp Pulse Resp B/P B/P Pulse O2 O2 Flow FiO2 Mean Ox Delivery Rate 03/12 0945 99.5 150 03/12 0830 99.5 158 28 118/62 97 Room Air 03/12 0751 97.8 134 20 108/85 94 03/11 2225 97.6 91 20 117/63 95 Room Air 03/11 1853 97.9 98 18 124/68 94 Room Air 03/11 1757 97.9 92 14 122/58 96 Room Air 03/11 1516 102 18 112/56 99 Room Air 03/11 1325 98.5 108 20 168/80 99 Room Air Intake & Output 03/12 1600 03/12 0800 03/12 0000 Intake Total 120 480 Output Total 50 Balance 120 430 Intake, Oral 120 480 Output, Urine 50 Patient 146 lb Weight Weight Bed scale Measurement Method Physical Exam General Appearance: Alert, Oriented X3, Cooperative, No Acute Distress Skin: No Rashes Sepsis Skin Exam (color): Normal for Ethnicity Cardiovascular: Regular Rate, Normal S1, Normal S2 Lungs: Clear to Auscultation, Normal Air Movement Abdomen: Normal Bowel Sounds, Soft, No Tenderness Neurological: plantar felxion impaired, strength in lower extremities 4/5 bilaterally, Sensation intact, Diffuse muscle spasms with increased tone Extremities: No Edema, Normal Pulses Assessment/Plan Assessment: This is a 57 yo gentleman with past medical history of MS diagnosed 15 years ago and osteoporosis posisbly secondary to chronic steroid use and is admitted to the [facility] after he presented to the ED with sudden onset bilateral lower extremity wekaness. The patient has a recent history of compression fractures of vertebrae. He does not have any alarming signs of cord compression at this time. Labs in the AM unremarkable except for mild anemia and hyponatremia to 136 Problems: 1. MS exacerbation vs Acute Spinal Cord Compression Vertebral Compression Fractures 2. Osteoporosis 3. Chronic back pain 1. MS exacerbation -Possible differentials MS exacerbation vs acute cord compression secondary to vertebral compression fractures -We would continue Iv Methylprednisone 1g daily for 4 more days -We informed Dr. Muñoz about the admission. Would follow up his recommendations -Continue Azathioprine 150 mg daily -Increase Baclofen to 20 mg 3 times daily given increased tone and muscle spasms -Continue Gabapentin 400 3 times daily -Continue Phenytoin 100 3 times daily 2.Osteoporosis -Patientt gets alendronate every Thursday -Continue vitamin D supplements daily 3.Chronic back pain .-Continue home medication tramadol 50 mg 3 times daily as needed for pain -Percocet as needed for severe pain -Physical therapy consult in the AM 4.Severe anxiety -Patient had palpiatations with his HR increased to 160s. Rest of the vitals stable. -EKG showed sinus tachycardia -Ativan 0.5 mg PO followed by 0.5 mg iv given -Would follow vitals closely Patient is full code Regular diet DVT prophylaxis subcu heparin Problem List: 1. Fall 2. Vertebral compression fracture 3. Exacerbation of multiple sclerosis Pain Ratin Pain Location: headache Pain Goal: Remain pain free Pain Plan: pathway Tomorrow's Labs & Rationales: cbc and bep Thierno Watson 03/12/18 1109: Attending MD Review Statement Attending Statement Attending MD Statement: examined this patient, discuss w/resident/PA/SUPERVISOR COMPUTER OPERATIONS, agreed w/resident/PA/SUPERVISOR COMPUTER OPERATIONS, discussed with family, reviewed EMR data (avail), discussed with nursing, discussed with case mgmt, reviewed images, amended to note Attending Assessment/Plan: Patient with pmh of MS debilitating, legally blind, wheel chair bound came with c/o generalsied weakness and diffculty to ambulate. Patient denies any focal deficits. Pateint is admitted to inpatient medical services for possible MS exacerbation. This am patient has tachycardia and muscle spasms. He is aaox3 oriented. Legally blind. Patient continue on iv steroids and call neurology consult Dr Alejandre. Supprotive care for MS ongoing. Will increase baclofen and give ativan for anixety episode. Continue with phenytoin home dose. Check phenytoin levels. PT consult. Rule out infection. Send UA. Fall precautions. GI/DVT prophylaxis Full code.
[2018-03-12 08:08] LABS: ABSOLUTE BASOPHIL COUNT 0 /CUMM (0.0-0.2); ABSOLUTE EOSINOPHIL COUNT 0 /CUMM (0.0-0.7); ABSOLUTE GRANULOCYTE CT 4.3 /CUMM (1.4-6.5); ABSOLUTE LYMPH COUNT 0.5 /CUMM (1.2-3.4); ABSOLUTE MONOCYTE COUNT 0.1 /CUMM (0.10-0.60); BASOPHIL % 0 % (0.0-2.0); EOSINOPHIL % 0 % (0-5); GRANULOCYTE % 86.3 % (42.2-75.2); MEAN CORPUSCULAR HGB CONC 34.1 G/DL (33.0-37.0); MEAN CORPUSCULAR VOLUME 105.5 FL (80.0-94.0); MEAN PLATELET VOLUME 9.1 FL (7.4-10.4); RBC DISTRIBUTION WIDTH 17.2 % (11.5-14.5); RED BLOOD CELL CT 3.51 /CUMM (4.70-6.10)
[2018-03-12 10:29] LABS: PLATELET COUNT 125 /CUMM (130-400)
--- NOTE | 2018-03-12 12:04 | RADIOLOGY REPORT ---
EXAMINATION: XR LUMBOSACRAL SPINE CLINICAL INFORMATION: 57-year-old male with lower extremity weakness. COMPARISON: Lumbosacral spine done on 06/29/2017. TECHNIQUE: 2 views (5 images) of the lumbosacral spine were obtained. FINDINGS: Moderate diffuse osteopenia is noted involving all the visualized bones. Moderate mid lumbar levoscoliosis is present. Interval development of [id number] compression deformity of the mid to anterior part of L2 vertebral body and the mid part of L4 vertebral body is seen. The previously identified severe compression deformity of T12 and L1 appears unchanged. The posterior appendages are intact. The paraspinal soft tissues are unchanged. Incidental note is made of significant gaseous distention and significant fecal retention within the large bowel, unchanged since 06/29/2017. IMPRESSION: 1. Jyww-zt-tjwuiuly compression deformity of the L2 and L4 vertebral bodies, new since 06/29/2017. 2. Persistent moderate diffuse osteopenia, moderate mid lumbar levoscoliosis and severe compression deformity of the T12 and L1 vertebral bodies. 3. Persistent gaseous distention and significant fecal retention within the large bowel, unchanged since 06/29/2017.
[2018-03-13 06:37] VITALS: BP 120/80
[2018-03-13 08:32] LABS: ABSOLUTE BASOPHIL COUNT 0 /CUMM (0.0-0.2); ABSOLUTE EOSINOPHIL COUNT 0 /CUMM (0.0-0.7); ABSOLUTE LYMPH COUNT 0.5 /CUMM (1.2-3.4); ABSOLUTE MONOCYTE COUNT 0.2 /CUMM (0.10-0.60); BASOPHIL % 0 % (0.0-2.0); EOSINOPHIL % 0 % (0-5); GRANULOCYTE % 82.4 % (42.2-75.2); MEAN CORPUSCULAR HGB 36.1 PG (27.0-31.0); MEAN CORPUSCULAR HGB CONC 34.7 G/DL (33.0-37.0); MEAN CORPUSCULAR VOLUME 103.8 FL (80.0-94.0); MEAN PLATELET VOLUME 10.1 FL (7.4-10.4); RBC DISTRIBUTION WIDTH 17.4 % (11.5-14.5); RED BLOOD CELL CT 3.06 /CUMM (4.70-6.10); WHITE BLOOD CELL COUNT 3.6 /CUMM (4.8-10.8)
--- NOTE | 2018-03-13 09:37 | PN- Housestaff ---
Jv Avila 03/13/18 0937: Subjective Follow-up For: MS exacerbation history of fall Spinal cord compression fracture Subjective: Patient seen and examined at bedside. He is complaining of constipation since 3 week. He denies any fever, chest pain abdominal pain , nausea, vomiting, burning micturition. Review of Systems Constitutional: Reports: see HPI. Objective Last 24 Hrs of Vital Signs/I&O Vital Signs Date Time Temp Pulse Resp B/P B/P Pulse O2 O2 Flow FiO2 Mean Ox Delivery Rate 03/13 1445 98.2 105 18 103/60 96 03/13 0800 96 Room Air 03/13 0637 99.0 113 20 120/80 96 Room Air 03/12 2143 97.3 81 18 100/55 96 Room Air Intake & Output 03/13 1600 03/13 0800 03/13 0000 Intake Total 1500 250 130 Output Total Balance 1500 250 130 Intake, IV 1000 50 10 Intake, Oral 500 200 120 Number 0 Bowel Movements Patient 146 lb Weight Physical Exam General Appearance: Alert, Oriented X3, Cooperative Cardiovascular: Normal S1, Normal S2 Lungs: Clear to Auscultation, Normal Air Movement Abdomen: Normal Bowel Sounds, Soft, No Tenderness, No Hepatospenomegaly, No Masses Extremities: No Clubbing, No Cyanosis, No Edema, Normal Pulses, No Tenderness/ Swelling Assessment/Plan Assessment: 57 yo gentleman with past medical history of MS diagnosed 15 years ago and osteoporosis posisbly secondary to chronic steroid use and is admitted to the [facility] after he presented to the ED with sudden onset bilateral lower extremity wekaness. The patient has a recent history of compression fractures of vertebrae. He does not have any alarming signs of cord compression at this time. Labs in the AM unremarkable except for mild anemia and hyponatremia to 136 Problems: * MS exacerbation vs Acute Spinal Cord Compression Vertebral Compression Fractures * Osteoporosis * Chronic back pain * Chronic constipation may be secondary due to pain medication MS exacerbation; -Patient having history of multiple sclerosis -He is taking treatment from Dr. Muñoz will follow his recommendation -We will follow his recommendation -Possible differentials MS exacerbation vs acute cord compression secondary to vertebral compression fractures -We would continue Iv Methylprednisone 1g daily for 4 more days -Continue Azathioprine 150 mg daily -Increase Baclofen to 20 mg 3 times daily given increased tone and muscle spasms -Continue Gabapentin 400 3 times daily -Continue Phenytoin 100 3 times daily Osteoporosis: We will continue his alendronate on every Thursday and vitamin D supplement Chronic back pain .-Continue home medication tramadol 50 mg 3 times daily as needed for pain -Percocet as needed for severe pain anxiety: -Patient does not look anxious right now -He having no panic attack today -Ativan 0.5 mg PO followed by 0.5 mg iv in case of anxiety or panic episode -Would follow vitals closely Chronic constipation may be secondary due opiate for pain: Patient had no bowel movement since 3 weeks Dulcolax suppository recommended We will follow-up X-ray findin. Kkay-cq-vxeckhnz compression deformity of the L2 and L4 vertebral bodies, new since 06/29/2017. 2. Persistent moderate diffuse osteopenia, moderate mid lumbar levoscoliosis and severe compression deformity of the T12 and L1 vertebral bodies. 3. Persistent gaseous distention and significant fecal retention within the large bowel, unchanged since 06/29/2017. We will follow for sign and symptom of bowel obstruction In case the patient had nausea vomiting and abdominal pain with x-ray abdomen Full code GI DVT prophylaxis Patient is full code Regular diet DVT prophylaxis subcu heparin This is a 57 yo gentleman with past medical history of MS diagnosed 15 years ago and osteoporosis posisbly secondary to chronic steroid use and is admitted to the [facility] after he presented to the ED with sudden onset bilateral lower extremity wekaness. The patient has a recent history of compression fractures of vertebrae. He does not have any alarming signs of cord compression at this time. Labs in the AM unremarkable except for mild anemia and hyponatremia to 136 Problems: 1. MS exacerbation vs Acute Spinal Cord Compression Vertebral Compression Fractures 2. Osteoporosis 3. Chronic back pain 1. MS exacerbation -Possible differentials MS exacerbation vs acute cord compression secondary to vertebral compression fractures -We would continue Iv Methylprednisone 1g daily for 4 more days -We informed Dr. Muñoz about the admission. Would follow up his recommendations -Continue Azathioprine 150 mg daily -Increase Baclofen to 20 mg 3 times daily given increased tone and muscle spasms -Continue Gabapentin 400 3 times daily -Continue Phenytoin 100 3 times daily 2.Osteoporosis -Patientt gets alendronate every Thursday -Continue vitamin D supplements daily 3.Chronic back pain .-Continue home medication tramadol 50 mg 3 times daily as needed for pain -Percocet as needed for severe pain -Physical therapy consult in the AM 4.Severe anxiety -Patient had palpiatations with his HR increased to 160s. Rest of the vitals stable. -EKG showed sinus tachycardia -Ativan 0.5 mg PO followed by 0.5 mg iv given -Would follow vitals closely Patient is full code Regular diet DVT prophylaxis subcu heparin COnstipation since three weeks: Problem List: 1. Intractable back pain 2. Multiple sclerosis 3. DVT prophylaxis 4. Exacerbation of multiple sclerosis 5. Vertebral compression fracture 6. Fall Pain Ratin Pain Location: no pian Pain Goal: Remain pain free Pain Plan: Pain management pathway Tomorrow's Labs & Rationales: CBCs, Leyla Novoa MD,[facility] 03/13/18 1229: Attending MD Review Statement Attending Statement Attending MD Statement: examined this patient, discuss w/resident/PA/PAYMENT POSTER, agreed w/resident/PA/PAYMENT POSTER, reviewed EMR data (avail), discussed with nursing, amended to note Attending Assessment/Plan: Patient seen and examined. No issues overnight reported by nursing staff. Patient resting comfortably and offers no complaints. Sitter present at the bedside for safety as patient is legally blind. Labs reviewed. Thrombocytopenia noted. Patient noted to have episode of thrombocytopenia in the past. No evidence of bleeding noted. Continue systemic steroid therapy. Physical therapy as tolerated. Repeat CBCs in a.m. He is growing gram-negative rods in the urine. However is afebrile hospital leukocytosis on denies any urinary symptoms. He is only going to 5000 colony- forming units. Will hold off antibiotic therapy for now.
[2018-03-13 09:52] LABS: HEMATOCRIT 31.7 % (42-52)
[2018-03-13 09:54] LABS: PLATELET COUNT 93 /CUMM (130-400)
[2018-03-13 14:45] VITALS: BP 103/60
[2018-03-13 21:16] VITALS: BP 116/78
[2018-03-14 07:00] VITALS: BP 154/76
--- NOTE | 2018-03-14 07:51 | Sepsis Event Note ---
Sepsis Event Note Severe Sepsis Severe Sepsis Present: No Septic Shock Septic Shock Present: No Sepsis Focused Exam Sepsis Cardiac Exam: Tachycardia Sepsis Resp Exam: CTA Sepsis Cap Refill Exam: <2 Sec Sepsis Peripheral Pulse Exam: Normal Sepsis Peripheral Pulse Location: Dorsalis Pedis Sepsis Skin Exam (color): Normal for Ethnicity Skin Temp/Moisture Exam: Warm/Dry
--- NOTE | 2018-03-14 08:11 | PN- Housestaff ---
Jv Avila 03/14/18 0811: Subjective Follow-up For: MS exacerbation versus vertebral compression fracture Back pain Constipation Subjective: Patient seen and examined at bedside. He said that his constipation relieved. Yesterday night he had a bowel movement. He was complaining of fever last night. He denies chills, chest pain, abdominal pain, diarrhea, burning micturition, constipation. Review of Systems Constitutional: Reports: see HPI. Objective Last 24 Hrs of Vital Signs/I&O Vital Signs Date Time Temp Pulse Resp B/P B/P Pulse O2 O2 Flow FiO2 Mean Ox Delivery Rate 03/14 1443 98.3 107 18 118/70 95 Room Air 03/14 1000 98.9 113 16 122/68 95 Room Air 03/14 0710 100.5 03/14 0700 100.5 132 18 154/76 95 Room Air 03/14 0611 102.0 03/14 0610 102.0 137 03/13 2116 97.6 102 19 116/78 98 Room Air Intake & Output 03/14 1600 03/14 0800 03/14 0000 Intake Total 2500 300 300 Output Total 550 600 400 Balance 1950 -300 -100 Intake, IV 1500 Intake, Oral 1000 300 300 Number 0 3 Bowel Movements Output, Urine 550 600 400 Physical Exam General Appearance: Alert, Oriented X3, Cooperative, No Acute Distress Cardiovascular: Regular Rate, Normal S1, Normal S2, No Murmurs, Gallops, Rubs Lungs: Clear to Auscultation, Normal Air Movement Abdomen: Normal Bowel Sounds, Soft, No Tenderness, No Hepatospenomegaly, No Masses Assessment/Plan Assessment: 57 yo gentleman with past medical history of MS diagnosed 15 years ago and osteoporosis posisbly secondary to chronic steroid use and is admitted to the [facility] after he presented to the ED with sudden onset bilateral lower extremity wekaness. The patient has a recent history of compression fractures of vertebrae. He does not have any alarming signs of cord compression at this time. Labs in the AM unremarkable except for mild anemia and hyponatremia to 136 Problems: * MS exacerbation vs Acute Spinal Cord Compression Vertebral Compression Fractures * Osteoporosis * Chronic back pain * Chronic constipation may be secondary due to pain medication * New onset fever, elevated lactate level * Pancytopenia MS exacerbation; -Patient having history of multiple sclerosis -He is taking treatment from Dr. Muñoz will follow his recommendation -We will follow his recommendation -Possible differentials MS exacerbation vs acute cord compression secondary to vertebral compression fractures -We would continue Iv Methylprednisone 1g daily for 4 more days -Continue Azathioprine 150 mg daily -Increase Baclofen to 20 mg 3 times daily given increased tone and muscle spasms -Continue Gabapentin 400 3 times daily -Continue Phenytoin 100 3 times daily Osteoporosis: We will continue his alendronate on every Thursday and vitamin D supplement Chronic back pain .-Continue home medication tramadol 50 mg 3 times daily as needed for pain -Percocet as needed for severe pain anxiety: -Patient does not look anxious right now -He having no panic attack today -Ativan 0.5 mg PO followed by 0.5 mg iv in case of anxiety or panic episode -Would follow vitals closely Chronic constipation may be secondary due opiate for pain: Patient started having bowel movement yesterday night after giving Dulcolax suppository We will follow-up X-ray findin. Gphd-yv-ajiyhvgc compression deformity of the L2 and L4 vertebral bodies, new since 06/29/2017. 2. Persistent moderate diffuse osteopenia, moderate mid lumbar levoscoliosis and severe compression deformity of the T12 and L1 vertebral bodies. 3. Persistent gaseous distention and significant fecal retention within the large bowel, unchanged since 06/29/2017. We will follow for sign and symptom of bowel obstruction In case the patient had nausea vomiting and abdominal pain with x-ray abdomen New onset fever, elevated lactate level : Patient having new onset fever yesterday night temperature was 101 this morning T-max is 100.6 His lactate level was also high Lactate level trended down will follow further Patient also having pancytopenia: Hematology oncology referral? New onset fever Full code GI DVT prophylaxis Problem List: 1. Fall 2. Gait instability 3. Intractable back pain Pain Ratin Pain Location: No pain Pain Goal: Remain pain free Pain Plan: Pain management pathway Tomorrow's Labs & Rationales: CBCs Alexandra Novoa MD 03/14/18 0948: Attending MD Review Statement Attending Statement Attending MD Statement: examined this patient, discuss w/resident/PA/ESTERS AND EMULSIFIERS SUPERVISOR, agreed w/resident/PA/ESTERS AND EMULSIFIERS SUPERVISOR, reviewed EMR data (avail), discussed with nursing, amended to note Attending Assessment/Plan: Patient seen and examined. Lying comfortably in bed. Does not appear to be in any acute distress. Noted to be febrile this morning with temperature of 102. This was confirmed with repeat values. He is hemodynamically stable. Denies any symptoms. Denies cough or shortness of breath. Denies chest pain. Denies nausea vomiting. Denies abdominal pain. Denies dysuria. Nursing staff did report loose stools earlier this morning. Patient is noted to be going gram-negative rods of 75,000 colony-forming units and staph aureus with greater than 100,000 colony-forming units in the urine. He did not receive treatment initially due to his asymptomatic status. Patient acknowledged that while at his assisted he was noted to have bacteriuria but received no treatment at that time. Physical examination is unchanged. He is alert and oriented 3. Legally blind. Heart sounds are regular. Lungs clear bilaterally. Abdomen soft and nontender. No peripheral edema. Nursing staff deny presence of decubitus ulcers. Laboratory data this morning is pending but he was noted to have mild neutropenia and thrombocytopenia yesterday. Patient is on azathioprine off label use for his multiple sclerosis. This medication can cause neutropenia and thrombocytopenia. Interestingly this medication can cause fever as well. Labs today do reveal lactic acidosis. Problems: 1. Multiple sclerosis exacerbation. 2. Fever; probably secondary to urinary tract infection versus drug fever 3. Neutropenia and thrombocytopenia Plan: -Empiric antibiotic therapy with IV Rocephin. Obtain ID consultation regarding the need to treat the staph aureus bacteriuria. -Follow-up culture sensitivity. -Obtain chest x-ray as part of fever workup. Follow-up blood cultures. -Check stool for C. difficile if diarrhea persists. -In view of his neutropenia and thrombocytopenia recommend discussion with his neurologist regarding the need to continue azathioprine. -Continue systemic steroid therapy. -If platelet count is persistently below 100,000 recommend discontinuation of subcutaneous heparin and DVT prophylaxis with compression devices in order to avoid bleeding complications.
[2018-03-14 09:01] LABS: ABSOLUTE BASOPHIL COUNT 0 /CUMM (0.0-0.2); ABSOLUTE EOSINOPHIL COUNT 0 /CUMM (0.0-0.7); ABSOLUTE GRANULOCYTE CT 3.6 /CUMM (1.4-6.5); ABSOLUTE LYMPH COUNT 0.3 /CUMM (1.2-3.4); ABSOLUTE MONOCYTE COUNT 0.2 /CUMM (0.10-0.60); BASOPHIL % 0.1 % (0.0-2.0); EOSINOPHIL % 0 % (0-5); GRANULOCYTE % 88.1 % (42.2-75.2); HEMATOCRIT 35.6 % (42-52); MEAN CORPUSCULAR HGB 35.9 PG (27.0-31.0); MEAN CORPUSCULAR HGB CONC 34.4 G/DL (33.0-37.0); MEAN CORPUSCULAR VOLUME 104.3 FL (80.0-94.0); MEAN PLATELET VOLUME 10.1 FL (7.4-10.4); RBC DISTRIBUTION WIDTH 17.6 % (11.5-14.5); RED BLOOD CELL CT 3.42 /CUMM (4.70-6.10); WHITE BLOOD CELL COUNT 4.1 /CUMM (4.8-10.8)
[2018-03-14 10:00] VITALS: BP 122/68
[2018-03-14 10:11] LABS: PLATELET COUNT 89 /CUMM (130-400)
--- NOTE | 2018-03-14 14:24 | RADIOLOGY REPORT ---
EXAMINATION: XR CHEST CLINICAL INFORMATION: Evaluate for fever COMPARISON: 2016 TECHNIQUE: 2 views of the chest were obtained. FINDINGS: Severe emphysematous blebs involving primarily the upper lobes. This has not changed. No acute infiltrates. Costophrenic angles are sharp. There is no pneumothorax. Heart mediastinum and shira unchanged. IMPRESSION: Chronic changes as above, no radiographic evidence of acute infiltrates.
[2018-03-14 14:43] VITALS: BP 118/70
--- NOTE | 2018-03-14 14:46 | Cons- Infect Disease ---
General Information and HPI Consulting Request Date of Consult: 03/14/18 Requested By: Thierno Watson MD Reason for Consult: Staph aureus and GNR in urine Source of Information: patient, old records History of Present Illness: This patient is a 57-year-old male with a significant past medical history for multiple sclerosis, osteoporosis, chronic back pain who was admitted March 11 for lower extremity weakness and inability to ambulate for 1 day. The patient was completely fine 2 days prior to this admission when he developed sudden onset of generalized weakness and difficulty ambulation. The patient remained afebrile until early this morning when he started spiking fevers of 102 cultures sent for his admission cultures from his urine are growing Acinetobacter and MSSA. The patient's white blood cell count has remained low since admission is currently 4.1. The patient feels better since admission and does not feel his back pain has worsened since admission. Allergies/Medications Allergies: Coded Allergies: mold (04/30/16) Home Med List: Alendronate Sodium 70 MG TABLET 1 TAB PO Mo Osteoporosis (Reported) Azathioprine (Imuran) 50 MG TABLET 3 TAB PO DAILY MS (Reported) Baclofen 10 MG TABLET 1 TAB PO TID MS (Reported) Cholecalciferol (Vitamin D3) 1,000 UNIT TABLET 1 TAB PO DAILY Bone strength Gabapentin 400 MG CAPSULE 1 CAP PO TID MS (Reported) Ibuprofen 800 MG TABLET 1 TAB PO TID PAIN (Reported) Lidocaine 5 % ADH..PATCH 1 PAT TOP DAILY Back pain Lubiprostone (Amitiza) 24 MCG CAPSULE 1 CAP PO BID CONSTIPATION (Reported) Phenytoin Sodium Extended 100 MG CAPSULE 1 CAP PO TID MS (Reported) Tramadol HCl 50 MG TABLET 1 TAB PO TID PAIN (Reported) Current Medications: Current Medications Sig/Monica Start time Last Medication Dose Route Stop Time Status Admin Acetaminophen 650 MG Q6P PRN 03/11 1600 AC 03/14 PO 0611 Azathioprine 150 MG DAILY 03/12 0900 AC 03/14 PO 0755 Baclofen 20 MG TID 03/12 1400 AC 03/14 PO 1409 Bisacodyl 10 MG ONCE ONE 03/13 1800 DC 03/13 IN 03/13 1801 1851 Bisacodyl 5 MG DAILY PRN 03/12 1345 AC 03/12 PO 1733 Ceftriaxone Sodium 1,000 MG DAILY 03/15 0900 AC IV Ceftriaxone Sodium 1,000 MG ONCE ONE 03/14 0830 DC 03/14 IV 03/14 0831 1007 Cholecalciferol 1,000 IU DAILY 03/12 0900 AC 03/14 PO 0755 Gabapentin 400 MG TID 03/11 2100 AC 03/14 PO 1409 Heparin Sodium 5,000 UNIT Q8 03/11 2200 AC 03/14 (Porcine) SC 1409 Lorazepam 1 MG Q6-PRN PRN 03/12 1345 AC 03/14 IV 0612 Methylprednisolone 1,000 MG DAILY 03/12 09 AC 03/14 Dextrose/Water 1,000 ML IV 03/15 1100 0911 Nystatin 1 MELIDA BID 03/11 2359 AC 03/14 TOP 0755 Oxycodone/ 2 TAB Q6P PRN 03/11 1600 AC 03/13 Acetaminophen PO 2351 Phenytoin 100 MG TID 03/11 2100 AC 03/14 PO 1409 Polyethylene Glycol 17 GM DAILY 03/12 09 AC 03/13 PO 0816 Senna/Docusate Sodium 1 TAB BID 03/12 0227 AC 03/13 PO 2135 Sodium Chloride 1,000 ML ONCE ONE 03/14 1000 AC 03/14 IV 03/14 1959 1002 Tramadol HCl 50 MG TID PRN 03/11 1700 AC 03/14 PO 0616 Past History Travel History Traveled to [place] past 21 day No Medical History Blood Transfusion Hx: No Neurological: multiple sclerosis EENT: blindness Cardiovascular: NONE Respiratory: NONE Gastrointestinal: constipation Hepatic: NONE Renal: NONE Musculoskeletal: ms Psychiatric: NONE Endocrine: NONE Blood Disorders: anemia Cancer(s): NONE INSPECTOR 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 Home Services at Home: Home Health Aide Smoking Status: Current Everyday Smoker ETOH Use: occasional use (denies daily use/trying quit) Illicit Drug Use: denies illicit drug use, history of crack/marijuana use 1980s Review of Systems Comments 12 review of sysmptom no pertinent positives noted Exam & Diagnostic Data Last 24 Hrs of Vital Signs/I&O Vital Signs Date Time Temp Pulse Resp B/P B/P Pulse O2 O2 Flow FiO2 Mean Ox Delivery Rate 03/14 1000 98.9 113 16 122/68 95 Room Air 03/14 0710 100.5 03/14 0700 100.5 132 18 154/76 95 Room Air 03/14 0611 102.0 03/14 0610 102.0 137 03/13 2116 97.6 102 19 116/78 98 Room Air 03/13 1445 98.2 105 18 103/60 96 Intake & Output 03/14 1600 03/14 0800 03/14 0000 Intake Total 2500 300 300 Output Total 550 600 400 Balance 1950 -300 -100 Intake, IV 1500 Intake, Oral 1000 300 300 Number 0 3 Bowel Movements Output, Urine 550 600 400 Physical Exam Other Physical Findings: Awake alert oriented 3 Pupils equal and reactive to light and accommodation equal ocular motion Follows voice command but clearly blind Heart regular rate and rhythm S1-S2 no murmurs heard Lungs clear to auscultation bilaterally Abdomen soft nontender nondistended No rashes or lesions Last 24 Hours of Lab Results: Laboratory Tests 03/14 03/14 03/14 1300 1105 0835 Chemistry Lactic Acid (0.7 - 2.1 mmol/L) Cancelled 1.8 2.4 H 03/14 0805 Hematology CBC w Diff MAN DIFF ORDERED WBC (4.8 - 10.8 /CUMM) 4.1 L RBC (4.70 - 6.10 /CUMM) 3.42 L Hgb (14.0 - 18.0 G/DL) 12.3 L Hct (42 - 52 %) 35.6 L MCV (80.0 - 94.0 FL) 104.3 H MCH (27.0 - 31.0 PG) 35.9 H MCHC (33.0 - 37.0 G/DL) 34.4 RDW (11.5 - 14.5 %) 17.6 H Plt Count (130 - 400 /CUMM) 89 L MPV (7.4 - 10.4 FL) 10.1 Gran % (42.2 - 75.2 %) 88.1 H Lymphocytes % (20.5 - 51.1 %) 8.1 L Monocytes % (1.7 - 9.3 %) 3.7 Eosinophils % (0 - 5 %) 0 Basophils % (0.0 - 2.0 %) 0.1 Absolute Granulocytes (1.4 - 6.5 /CUMM) 3.6 Segmented Neutrophils (42.2 - 75.2 %) 78 H Band Neutrophils (0.0 - 5.0 %) 11 H Absolute Lymphocytes (1.2 - 3.4 /CUMM) 0.3 L Lymphocytes (20.5 - 51.1 %) 6 L Monocytes (1.7 - 9.3 %) 4 Absolute Monocytes (0.10 - 0.60 /CUMM) 0.2 Absolute Eosinophils (0.0 - 0.7 /CUMM) 0 Basophils (0.0 - 2.0 %) 1 Absolute Basophils (0.0 - 0.2 /CUMM) 0 Poikilocytosis 1+ Anisocytosis 2+ Macrocytic Cells 2+ Last 24 Hours of Julián Results: Microbiology Date/Time Procedure - Status Source Growth 03/14 1424 Clostridium difficile Toxin A & B - ORD STOOL 03/14 0815 Blood Culture - RECD BLOOD 03/14 0800 Blood Culture - RECD BLOOD 03/12 1415 Urine Culture - COMP URINE ROUT ACINETOBACTER BAUMANNII STAPH AUREUS Assessment/Plan Assessment/Plan Impression: This patient is a 57-year-old male with a significant past medical history for multiple sclerosis, osteoporosis, chronic back pain who was admitted March 11 for lower extremity weakness and inability to ambulate for 1 day. Begin spiking temperatures today with a normal white blood cell count. Initial urine cultures from admission are demonstrating Acinetobacter and MSSA. The patient is immunocompromised from his underlying treatment for multiple sclerosis. It is likely that his fevers are secondary to the urinary tract infection and would favor treating the cultures. The patient has not recently had straight cath or Freeman catheter in place aching a more concerning that the MSSA is hematologic in origin and further workup is indicated. Suggestion: 1. Blood cultures 2 2. DC ceftriaxone and start Unasyn 1.5 g IV every 6 hours 3. Obtain MRI of spine (back pain in setting of hematologic MSSA) 4. Follow white blood cell count and temperatures Consult Acknowledgment - Thank you for your consult request.
[2018-03-14 18:30] VITALS: BP 97/53
[2018-03-14 22:01] VITALS: BP 112/68
[2018-03-15] VITALS: BP 112/68
[2018-03-15 06:42] VITALS: BP 96/70
--- NOTE | 2018-03-15 07:34 | PN- Housestaff ---
Peter Osbornei 03/15/18 0733: Subjective Follow-up For: MS exacerbation Chronic back pain Subjective: Patient was seen and examined at bedside. The patient does not any complaints at present. He spiked a temperature of 102 over the weekend with positive blood cultures for Gram negative cocci. The patient reports worsening in the pain in his back from 4/10 at admission to 10/10 at this time. However, he is much more calm at this time than he was two days ago. Review of Systems Constitutional: Reports: see HPI. Objective Last 24 Hrs of Vital Signs/I&O Vital Signs Date Time Temp Pulse Resp B/P B/P Pulse O2 O2 Flow FiO2 Mean Ox Delivery Rate 03/15 1446 98.2 96 20 126/80 94 Room Air 03/15 0642 98.0 92 20 96/70 95 Room Air 03/15 0000 98.2 91 18 112/68 03/14 2201 98.2 91 18 112 94 Room Air 03/14 1830 98.4 104 16 97/53 92 Room Air Intake & Output 03/15 1600 03/15 0800 03/15 0000 Intake Total 2300 880 Output Total 900 1000 Balance 2300 -20 -1000 Intake, IV 1300 400 Intake, Oral 1000 480 Number 0 0 Bowel Movements Output, Urine 900 1000 Physical Exam General Appearance: Alert, Oriented X3, Cooperative, No Acute Distress Skin: No Rashes Sepsis Skin Exam (color): Normal for Ethnicity, Cyanotic, Flushed Neck: Supple Lungs: Clear to Auscultation Abdomen: Normal Bowel Sounds, Soft, No Tenderness Extremities: No Clubbing, No Cyanosis Assessment/Plan Assessment: This is a 57 yo gentleman with past medical history of MS diagnosed 15 years ago and osteoporosis posisbly secondary to chronic steroid use and is admitted to the [facility] after he presented to the ED with sudden onset bilateral lower extremity wekaness. The patient has a recent history of compression fractures of vertebrae. He does not have any alarming signs of cord compression at this time. Labs in the AM unremarkable except for anemia to 10.4, WBC: 5.2, Problems: 1. MS exacerbation vs Acute Spinal Cord Compression Vertebral Compression Fractures 2. Osteoporosis 3. Chronic back pain 1. MS exacerbation -Possible differentials MS exacerbation vs acute cord compression secondary to vertebral compression fractures -MRI negative for Compression fractures -We would continue Iv Methylprednisone 1g daily for 1 more day -Continue Azathioprine 150 mg daily -Increase Baclofen to 20 mg 3 times daily given increased tone and muscle spasms -Continue Gabapentin 400 3 times daily -Continue Phenytoin 100 3 times daily 2.Osteoporosis -Patientt gets alendronate every Thursday -Continue vitamin D supplements daily 3.Chronic back pain -Continue home medication tramadol 50 mg 3 times daily as needed for pain -Percocet as needed for severe pain -Physical therapy recommends disposition to [facility] 4. Bacteremia -Blood cultures are growing Gram positive cocci. Will follow up on final culture sensitivities. -Patient spiked fever to 102 over the weekend -He is afebrile at this time with a normal white blood count -ID input appreciated. Unasyn dose increased to 3g. -Renal ultrasound ordered. Will follow up on the reports Patient is full code Regular diet DVT prophylaxis subcu heparin Problem List: 1. Fall 2. Vertebral compression fracture 3. Exacerbation of multiple sclerosis Pain Ratin Pain Location: lower back Pain Goal: Pain 4 or less Pain Plan: pathway Tomorrow's Labs & Rationales: cbc and bep Thierno Watson 03/15/18 1119: Attending MD Review Statement Attending Statement Attending MD Statement: examined this patient, discuss w/resident/PA/LOCAL DRIVER, agreed w/resident/PA/LOCAL DRIVER, discussed with family, reviewed EMR data (avail), discussed with nursing, discussed with case mgmt, reviewed images, amended to note Attending Assessment/Plan: Patient with pmh of MS debilitating, legally blind, uses wheel chair but tries walker at times came with c/o generalsied weakness and diffculty to ambulate. Pateint is admitted to inpatient medical services for possible MS exacerbation and developed fevers over weekend. Weekend events noted. No new complaints reported. Afebrile , absent leukocytosis on steroids. Blood cultures 2/2 GPC+ Patient continue on iv steroids D4 and Neurology consulted Dr Alejandre. Supprotive care for MS ongoing. Continue with phenytoin home dose. Low back pain with inability to ambulate Xray spine with mild to moderate compression fractures. Rectal tone present. Obtain MRI spine r/o abscess/OM Bacteremia with fevers: c/w iv unasyn as per ID recommendations. F/u MRI spine. thrombocytopenia: stable no bleeding reported. monitor for now PT consult recommend rehab placement. Fall precautions. GI/DVT prophylaxis Full code. Anticipate dc as clinical condition improves to rehab facility.
[2018-03-15 08:23] LABS: ABSOLUTE BASOPHIL COUNT 0 /CUMM (0.0-0.2); ABSOLUTE EOSINOPHIL COUNT 0 /CUMM (0.0-0.7); ABSOLUTE GRANULOCYTE CT 3.9 /CUMM (1.4-6.5); ABSOLUTE LYMPH COUNT 0.8 /CUMM (1.2-3.4); ABSOLUTE MONOCYTE COUNT 0.5 /CUMM (0.10-0.60); BASOPHIL % 0.3 % (0.0-2.0); EOSINOPHIL % 0.3 % (0-5); GRANULOCYTE % 75.1 % (42.2-75.2); MEAN CORPUSCULAR HGB 35.9 PG (27.0-31.0); MEAN CORPUSCULAR HGB CONC 34.6 G/DL (33.0-37.0); MEAN CORPUSCULAR VOLUME 103.8 FL (80.0-94.0); MEAN PLATELET VOLUME 11.1 FL (7.4-10.4); PLATELET COUNT 85 /CUMM (130-400); RBC DISTRIBUTION WIDTH 17.5 % (11.5-14.5); WHITE BLOOD CELL COUNT 5.2 /CUMM (4.8-10.8)
[2018-03-15 08:56] LABS: HEMATOCRIT 30.1 % (42-52)
--- NOTE | 2018-03-15 10:18 | MRI REPORT ---
MR LUMBAR SPINE WITHOUT IV CONTRAST CLINICAL INFORMATION: Chronic back pain. COMPARISON: Lumbar spine MRI 11/07/2017. TECHNIQUE: MRI of the lumbar spine without contrast was obtained using routine sequences. FINDINGS: Stable appearing thoracolumbar kyphoscoliosis. There is similar appearing chronic compression deformities at the T12, L1, L2, and L4 levels without bone marrow edema within the anterior posterior elements of the lumbar spine to suggest an acute fracture. There is no MRI evidence of osteomyelitis discitis. T2 signal changes anterior to the L1 vertebral body are similar to the 11/07/2017 MRI and are nonspecific. L3 and L5 vertebral body heights are maintained. Disc volumes are overall preserved. Conus terminates at the L1 level. Significant bladder distention. Left renal cyst. T11-T12: Mild T12 upper endplate retropulsion continues to mildly indent the ventral thecal sac without significant central canal stenosis. No significant foraminal stenosis. L1-L2: There is stable grade 1 retrolisthesis. Diffuse annular bulge and mild bilateral facet arthropathy. No significant central canal stenosis. Mild bilateral foraminal encroachment. Findings unchanged. L2-L3: There is stable grade 1 retrolisthesis. Diffuse annular disc bulge and bilateral hypertrophic facet arthropathy. As on the prior study findings in concert result in mild narrowing of the central canal and asymmetric right subarticular zone narrowing without definite traversing nerve root compression. At least moderate bilateral foraminal stenosis is unchanged. L3-L4: Diffuse annular disc bulge and mild to moderate bilateral hypertrophic facet arthropathy. No significant central canal stenosis. Mild bilateral foraminal encroachment. Findings are unchanged. L4-L5: There is a diffuse annular disc bulge and there is moderate bilateral facet arthropathy. No appreciable central canal stenosis. Mild to moderate bilateral foraminal stenosis. Findings are unchanged. L5-S1: Annular disc bulge with a superimposed shallow right paracentral disc protrusion associated with annular fissure that contacts without compressing the traversing right S1 nerve root within the right subarticular zone. No central canal stenosis. Mild bilateral foraminal encroachment. These findings are unchanged. IMPRESSION: - Stable appearing chronic compression fractures at T12, L1, L2, and L4. No acute fractures. No MRI evidence of osteomyelitis discitis. Stable nonspecific T2 signal changes anterior to the L1 vertebral body. - Stable appearing multilevel degenerative disc disease and hypertrophic facet arthropathy throughout the lumbar spine. No severe central canal stenosis and no severe foraminal stenosis. - Stable appearing thoracolumbar kyphoscoliosis. - Significant bladder distention.
--- NOTE | 2018-03-15 11:21 | Discharge Summary ---
Visit Information Visit Dates Admission Date: 03/11/18 Discharge Date: 03/19/2018 Hospital Course Course Attending Physician: Thierno Watson MD Primary Care Physician: Ashley DIAZ,Anita Buenrostro Hospital Course: This is a 57-year-old male with past medical history significant for multiple sclerosis, osteoporosis, chronic back pain was brought in by ambulance for evaluation of lower extremity weakness and inability to ambulate for 1 day. Patient has chronic history of MS, currently following , getting treated for multiple sclerosis. He followed up with the multiple sclerosis specialist 6M ago. Patient reports that he was completely fine 2 days prior to this admission. Patient reports sudden onset of generalized weakness, leading to difficulty ambulation. He had to crawl to the bathroom and back to his chair. EMS was called yesterday, however he was refused to come to the emergency room. He was evaluated by visiting nurse this morning, given his extreme weakness and unable to ambulate 911 was called and patient was brought to the hospital. Prior to this changes, patient was able to ambulate with a walker and cook for himself. He denied any new focal neurologic weakness, sensory changes, vision changes, speech changes. Denies any headache. He also has acute on chronic back pain secondary to vertebral fractures. He was last admitted in October 2017 for mechanical fall and back pain secondary to compression fractures. He denied any fever, chills, nausea, vomiting, diarrhea, change in bladder bowel habits, chest pain, short of breath. He denies smoking, alcohol abuse, illicit drug abuse. ------ Vitals afebrile, heart rate 120, respiratory rate 18, blood pressure 168/80, saturating at 99 on room air Labs CBCs 3.9, hemoglobin 12, hematocrit 36, platelets 127 BEP normal limit Patient received 1 g of methylprednisone IV in the emergency room MS exacerbation Patient presented with new onset lower extremity weakness leading to difficulty ambulation. He denied any new focal neurologic weakness, sensory changes, vision changes, speech changes. Denies any headache. Denied any urinary or fecal incontinence. Rectal tone was intact on exam. Patient has chronic history of MS, currently following , getting treated for multiple sclerosis. He was admitted to general medicine floor for multiple sclerosis exacerbation. Vitals were monitored every shift. He was given 5 days course of IV methylprednisone 1 g daily. He was seen by Dr. Bennett in the hospital. Advised to complete methylprednisone course for 5 days. Was advised to follow- up with him as an outpatient basis. He was continued on his home medications azathioprine 150 mg daily, gabapentin 400 mg 3 times daily, phenytoin 100 mg 3 times daily. Baclofen dose was increased to 20 mg -3 times daily given worsening of muscle spasms., He was seen by physical therapist, recommended short-term rehab. Osteoporosis Gets alendronate every Thursday Continued vitamin D supplements daily Acute on chronic back pain patient has acute on Chronic back pain secondary to lumbar vertebral fractures. Patient takes tramadol 50 -3 times daily at home. He was last admitted in October 2017 for mechanical fall and back pain secondary to compression fractures. Lumbar spine x-ray was done in the hospital, showed [id number] compression deformity of the L2 and L4 vertebral bodies, new since 06/29/2017. Also has Persistent moderate diffuse osteopenia, moderate mid lumbar levoscoliosis and severe compression deformity of the T12 and L1 vertebral bodies. Lumbar spine MRI showed Stable appearing chronic compression fractures at T12, L1, L2, and L4. No acute fractures. No MRI evidence of osteomyelitis discitis. No severe central canal stenosis and no severe foraminal stenosis. He was given home medication tramadol 50 mg 3 times daily as needed for pain and Percocet as needed for severe pain. He was seen by physical therapist, recommended short-term rehab. Fevers with staph aureus bacteremia on 03/13/2018, he started spiking fevers of 102. Chest x-ray was done which was within normal limits. His leukocyte count was less than 10,000. Urine analysis was within normal limit. Urine cultures positive for staph aureus and Acinetobacter, both are sensitive to Unasyn. Blood cultures 2 positive for staph aureus. The patient's white blood cell count has remained low since admission. Also MRI lumbar spine was done to rule out osteomyelitis, discitis. The patient is immunocompromised from his underlying treatment for multiple sclerosis. It is likely that his fevers are secondary to the urinary tract infection and he was started on Unasyn on March 15, to complete a course of 14 days, PICC line was placed on 03/19 for administration of antibiotics Blood cultures March 14 positive for STAPH AUREUS Blood cultures March 14 negative Given staph aureus bacteremia, echocardiogram was ordered to rule out infective endocarditis. Echocardiogram showed. Stage I diastolic heart failure with no evidence of infective endocarditis, patient is scheduled for DESEAN on 03/24, patient should be kept n.p.o. at midnight on Thursday night for the DESEAN constipation Persistent gaseous distention and significant fecal retention within the large bowel. He was given bowel regimen and suppository, after which constipation was relieved. Urine retention Given positive urine cultures, left CVA tenderness renal ultrasound was done to check for pyelonephritis. Renal ultrasound showed markedly distended bladder. Findings are suspicious for urinary retention, which may be predisposing the patient to cystitis. Despite the marked bladder distention, however, no hydronephrosis is seen bilaterally. He was continued on repeat bladder scan every shift with straight cath protocol as required Patient is full code Regular diet Pain pathway ordered DVT prophylaxis subcu heparin Allergies: Coded Allergies: mold (04/30/16) Pertinent Lab Results: spine mri IMPRESSION: - Stable appearing chronic compression fractures at T12, L1, L2, and L4. No acute fractures. No MRI evidence of osteomyelitis discitis. Stable nonspecific T2 signal changes anterior to the L1 vertebral body. - Stable appearing multilevel degenerative disc disease and hypertrophic facet arthropathy throughout the lumbar spine. No severe central canal stenosis and no severe foraminal stenosis. - Stable appearing thoracolumbar kyphoscoliosis. - Significant bladder distention. ----- xry spine IMPRESSION: 1. [id number] compression deformity of the L2 and L4 vertebral bodies, new since 06/29/2017. 2. Persistent moderate diffuse osteopenia, moderate mid lumbar levoscoliosis and severe compression deformity of the T12 and L1 vertebral bodies. 3. Persistent gaseous distention and significant fecal retention within the large bowel, unchanged since 06/29/2017. --------- cxr FINDINGS: Severe emphysematous blebs involving primarily the upper lobes. This has not changed. No acute infiltrates. Costophrenic angles are sharp. There is no pneumothorax. Heart mediastinum and shira unchanged Disposition Summary Disposition Principal Diagnosis: Multiple sclerosis acute exacerbation Acute on chronic back pain Constipation Fever with staph aureus bacteremia Urine cultures positive for staph aureus and Acinetobacter Additional Diagnosis: As above Discharge Disposition: SNF Discharge Instructions General Discharge Information Code Status: Full Code Patient's Diet: As tolerated Patient's Activity: As tolerated Follow-Up Instructions/Appts: Follow-up with PCP in 1 week after discharge Follow-up with the neurologist in 1 week after discharge Medications at Discharge Discharge Medications: Continue taking these medications: Azathioprine (Imuran) 50 MG TABLET 3 Tablet ORAL DAILY Comments: Last Taken:11/10/17 Time:8:32 AM Ibuprofen (Ibuprofen) 800 MG TABLET 1 Tablet ORAL THREE TIMES DAILY Qty = 90 Comments: Last Taken:11/09/17 Time:00:27 AM Tramadol HCl (Tramadol HCl) 50 MG TABLET 1 Tablet ORAL THREE TIMES DAILY Qty = 90 Comments: Last Taken:11/10/17 Time:8:41 AM Phenytoin Sodium Extended (Phenytoin Sodium Extended) 100 MG CAPSULE 1 Capsule ORAL THREE TIMES DAILY Qty = 90 Comments: Last Taken:11/10/17 Time:8:32 AM Baclofen (Baclofen) 10 MG TABLET 1 Tablet ORAL THREE TIMES DAILY Qty = 90 Comments: Last Taken:11/10/17 Time:8:32 AM Gabapentin (Gabapentin) 400 MG CAPSULE 1 Capsule ORAL THREE TIMES DAILY Qty = 60 Comments: Last Taken:11/10/17 Time:8:32 AM Cholecalciferol (Vitamin D3) 1,000 UNIT TABLET 1 Tablet ORAL DAILY Qty = 7 Comments: Last Taken:11/10/17 Time:8:23 AM Alendronate Sodium (Alendronate Sodium) 70 MG TABLET 1 Tablet ORAL Mo Qty = 30 Comments: Last Taken:11/06/17 Time:11:04 Lubiprostone (Amitiza) 24 MCG CAPSULE 1 Capsule ORAL TWICE DAILY Qty = 30 Comments: Last Taken:11/10/17 Time:8:32 AM Lidocaine (Lidocaine) 5 % ADH..PATCH 1 Patch On the skin DAILY Qty = 30 Start taking the following new medications: Ampicillin Sodium/Sulbactam Na (Unasyn 3 Gm Vial) 3 GRAM VIAL 3 Gram IV EVERY SIX HOURS Qty = 37 No Refills Comments: LAST GIVEN 03/19/18 @ 3650 Copies To: Ashley DIAZ,Anita Buenrostro Attending MD Review Statement Documenting Attending: Thierno Watson MD
[2018-03-15 14:46] VITALS: BP 126/80
--- NOTE | 2018-03-15 15:13 | PN- Infect Dx ---
Subjective Subjective: Afebrile on steroids. He complains of chronic back pain. Objective Last 24 Hrs of Vital Signs/I&O Vital Signs Date Time Temp Pulse Resp B/P B/P Pulse O2 O2 Flow FiO2 Mean Ox Delivery Rate 03/15 1446 98.2 96 20 126/80 94 Room Air 03/15 0642 98.0 92 20 96/70 95 Room Air 03/15 0000 98.2 91 18 112/68 03/14 2201 98.2 91 18 112/68 94 Room Air 03/14 1830 98.4 104 16 97/53 92 Room Air Intake & Output 03/15 1600 03/15 0800 03/15 0000 Intake Total 2300 880 Output Total 900 1000 Balance 2300 -20 -1000 Intake, IV 1300 400 Intake, Oral 1000 480 Number 0 0 Bowel Movements Output, Urine 900 1000 Physical Exam Other Physical Findings: He appears comfortable in no acute distress HEENT poor dentition Lungs are clear Heart regular rhythm with no murmur Abdomen is soft, nontender with positive bowel sounds Back left CVA tenderness Extremities no cyanosis, clubbing or edema; mild erythema of the distal aspects of both great toes Neuro weakness of both lower extremities Results Last 24 Hours of Lab Results: Laboratory Tests 03/15 0702 Hematology CBC w Diff MAN DIFF ORDERED WBC (4.8 - 10.8 /CUMM) 5.2 RBC (4.70 - 6.10 /CUMM) 2.90 L Hgb (14.0 - 18.0 G/DL) 10.4 L Hct (42 - 52 %) 30.1 L MCV (80.0 - 94.0 FL) 103.8 H MCH (27.0 - 31.0 PG) 35.9 H MCHC (33.0 - 37.0 G/DL) 34.6 RDW (11.5 - 14.5 %) 17.5 H Plt Count (130 - 400 /CUMM) 85 L MPV (7.4 - 10.4 FL) 11.1 H Gran % (42.2 - 75.2 %) 75.1 Lymphocytes % (20.5 - 51.1 %) 14.5 L Monocytes % (1.7 - 9.3 %) 9.8 H Eosinophils % (0 - 5 %) 0.3 Basophils % (0.0 - 2.0 %) 0.3 Absolute Granulocytes (1.4 - 6.5 /CUMM) 3.9 Segmented Neutrophils (42.2 - 75.2 %) 64 Band Neutrophils (0.0 - 5.0 %) 10 H Absolute Lymphocytes (1.2 - 3.4 /CUMM) 0.8 L Lymphocytes (20.5 - 51.1 %) 16 L Monocytes (1.7 - 9.3 %) 9 Absolute Monocytes (0.10 - 0.60 /CUMM) 0.5 Eosinophils (0 - 5.0 %) 1 Absolute Eosinophils (0.0 - 0.7 /CUMM) 0 Absolute Basophils (0.0 - 0.2 /CUMM) 0 Platelet Estimate (ADEQUATE) DECREASED Anisocytosis 1+ Macrocytic Cells 1+ Last 24 Hours of Julián Results: Blood cultures March 14 positive for gram-positive cocci in clusters Blood cultures March 14 negative so far Urine culture March 11 approximately 75,000 colonies of Acinetobacter resistant to Augmentin and greater than 100,000 colonies of Staph aureus sensitive to Oxacillin Recent Imaging Studies: Chest x-ray March 14 no acute process MRI of the lumbar spine March 15 reveal stable appearing chronic compression fractures at T12, L1, L2 and L4, with no evidence of osteomyelitis or discitis; stable appearing multilevel degenerative disc disease and hypertrophic facet arthropathy throughout the lumbar spine; significant bladder distention Assessment/Plan ID Impression: Gram-positive bacteremia, most likely secondary to Staph aureus, with Staph aureus also isolated, in addition to Acinetobacter, from the urine culture. He did report urinary symptoms prior to admission, with decreased stream and decreased volume, raising concern for urinary retention, particularly with the significant bladder distention noted on the MRI. He does have left CVA tenderness as well, raising concern for pyelonephritis. The most likely source of his bacteremia is the urinary tract, though the isolation of Staph aureus from the urinary tract, in the absence of instrumentation or catheterization, often suggests seeding from a bacteremia rather than an ascending infection. He has no other obvious source of infection at this time. The MRI does not reveal evidence for osteomyelitis or discitis but, if his positive blood cultures are identified as Staph aureus, he will need further evaluation for endocarditis. Suggestion: 1. Follow-up final blood cultures 2. Echocardiogram if the blood cultures prove to be Staph aureus 3. Bladder scan to rule out urinary retention and initiate straight cath protocol if present 4. Renal ultrasound 5. Increase Unasyn to 3 g IV every 6 hours pending above
--- NOTE | 2018-03-15 16:57 | ULTRASOUND REPORT ---
EXAMINATION: US RETROPERITONEAL COMPLETE (RENAL) CLINICAL INFORMATION: Positive urine culture. Presumptive diagnosis of renal stones. COMPARISON: MRI scan of the lumbar spine dated 03/15/2018. CT scan of the chest, abdomen and pelvis dated 01/28/2017. TECHNIQUE: Real-time imaging of the kidneys and bladder. FINDINGS: RIGHT KIDNEY: 11.6 x 5.5 x 5.5 cm (SAG x AP x TRV). The kidney is normal in size, contour, and echogenicity. Renal cortical thickness is normal. No calculi or focal parenchymal lesions. No hydronephrosis. LEFT KIDNEY: 11.0 x 6.4 x 5.4 cm (SAG x AP x TRV). The kidney is normal in size, contour, and echogenicity. Renal cortical thickness is normal. No focal parenchymal lesions. There is a punctate 0.3 cm mid left renal and a 0.3 cm lower pole left renal nonobstructing calcification seen. On the one of these calculi was visualized on prior CT scan from 01/28/2017. No hydronephrosis. BLADDER: Markedly distended. Bilateral ureteral jets are demonstrated. Prevoid bladder volume is 849 mL. Postvoid bladder volume could not be assessed since the patient was unable to void. IMPRESSION: 1. Bladder remains markedly distended. The patient was unable to void and post void residual could therefore not be assessed. Findings are suspicious for urinary retention, which may be predisposing the patient to cystitis. Despite the marked bladder distention, however, no hydronephrosis is seen bilaterally. 2. Two nonobstructing mid left renal calculi, one of which was visualized on prior CT scan from 01/28/2017. 3. Of note, on prior CT scan, a few scattered bilateral tiny incompletely characterized low-attenuation renal masses were seen, presumably representing cysts. These masses are not appreciated on today's ultrasound exam.
[2018-03-15 17:00] VITALS: BP 125/72
[2018-03-15 21:33] VITALS: BP 126/68
--- NOTE | 2018-03-16 06:55 | PN- Housestaff ---
Hetal Avila 03/16/18 0655: Subjective Follow-up For: MS exacerbation Chronic low back pain Complaints: no complaints Subjective: Patient was seen and examined lying in bed in no acute distress. He complains of a 6/10 sharp back pain. No other complaints. No acute events overnight. Review of Systems Constitutional: Reports: see HPI. Objective Last 24 Hrs of Vital Signs/I&O Vital Signs Date Time Temp Pulse Resp B/P B/P Pulse O2 O2 Flow FiO2 Mean Ox Delivery Rate 03/16 1300 98.0 102 16 125/67 95 Room Air 03/16 1144 Room Air 03/16 0728 97.4 91 18 110/69 99 03/16 0000 94 Room Air 03/15 2133 97.8 89 20 126/68 97 Room Air 03/15 1700 97.5 94 20 125/72 97 Room Air Intake & Output 03/16 1600 03/16 0800 03/16 0000 Intake Total 1100 220 220 Output Total 700 500 Balance 400 220 -280 Intake, IV 300 100 100 Intake, Oral 800 120 120 Number 0 Bowel Movements Output, Urine 700 500 Patient 152 lb Weight Weight Bed scale Measurement Method Physical Exam General Appearance: Alert, Oriented X3, Cooperative, No Acute Distress Skin: No Rashes, No Breakdown, No Significant Lesion Skin Temp/Moisture Exam: Cool/Dry Sepsis Skin Exam (color): Normal for Ethnicity HEENT: Atraumatic, Mucous Membr. moist/pink Neck: Supple, No JVD, No thryomegaly Cardiovascular: Regular Rate, Normal S1, Normal S2, No Murmurs Lungs: Clear to Auscultation, Normal Air Movement Abdomen: Normal Bowel Sounds, Soft, No Tenderness, No Hepatospenomegaly, No Masses Neurological: Normal Speech, Normal Tone, Sensation Intact Extremities: No Clubbing, No Cyanosis, No Edema, Normal Pulses Current Medications: Current Medications Sig/Monica Start time Last Medication Dose Route Stop Time Status Admin Acetaminophen 650 MG Q6P PRN 03/11 1600 AC 03/14 PO 0611 Ampicillin Sodium/ 3,000 MG Q6 03/15 1800 AC 03/16 Sulbactam Sodium IV 1128 Sodium Chloride 100 ML Ampicillin Sodium/ 1,500 MG Q6 03/14 1800 DC 03/15 Sulbactam Sodium IV 03/15 1759 1152 Sodium Chloride 100 ML Azathioprine 150 MG DAILY 03/12 09 AC 03/16 PO 0738 Baclofen 20 MG TID 03/12 1400 AC 03/16 PO 1325 Bisacodyl 5 MG DAILY PRN 03/12 1345 AC 03/12 PO 1733 Cholecalciferol 1,000 IU DAILY 03/12 0900 AC 03/16 PO 0739 Gabapentin 400 MG TID 03/11 2100 AC 03/16 PO 1325 Lorazepam 1 MG Q6-PRN PRN 03/12 1345 AC 03/14 IV 0612 Nystatin 1 MELIDA BID 03/11 2359 DC 03/15 TOP 2019 Oxycodone/ 2 TAB Q6P PRN 03/11 1600 AC 03/16 Acetaminophen PO 1325 Phenytoin 100 MG TID 03/11 2100 AC 03/16 PO 1325 Polyethylene Glycol 17 GM DAILY 03/12 09 AC 03/16 PO 0738 Senna/Docusate Sodium 1 TAB BID 03/12 0227 AC 03/16 PO 0739 Tramadol HCl 50 MG TID PRN 03/11 1700 AC 03/16 PO 0739 Last 24 Hrs of Lab/Julián Results Last 24 Hrs of Labs/Mics: Laboratory Tests 03/16/18 0718: Anion Gap 7, Estimated GFR > 60, BUN/Creatinine Ratio 31.4 H, CBC w Diff NO MAN DIFF REQ, RBC 3.01 L, MCV 104.3 H, MCH 36.2 H, MCHC 34.7, RDW 17.5 H, MPV 10.3, Gran % 70.7, Lymphocytes % 17.4 L, Monocytes % 11.4 H, Eosinophils % 0.3 , Basophils % 0.2, Absolute Granulocytes 4.3, Absolute Lymphocytes 1.1 L, Absolute Monocytes 0.7 H, Absolute Eosinophils 0, Absolute Basophils 0 Assessment/Plan Assessment: This is a 57 yo gentleman with past medical history of MS diagnosed 15 years ago and osteoporosis posisbly secondary to chronic steroid use and is admitted to the [facility] after he presented to the ED with sudden onset bilateral lower extremity wekaness. The patient has a recent history of compression fractures of vertebrae. Problems: compression fractures Blood cultures 2/2 GPC+: Staph aureus Urine culture grew Acinetobacter and MSSA Assessment and plan: Diet: Regular diet Problem List: 1. Exacerbation of multiple sclerosis 2. Fall 3. Vertebral compression fracture Pain Ratin Pain Location: Back pain Pain Goal: Pain 4 or less Pain Plan: Follow pain pathway Tomorrow's Labs & Rationales: CBC Thierno Watson 03/16/18 1114: Attending MD Review Statement Attending Statement Attending MD Statement: examined this patient, discuss w/resident/PA/PRECISION LAYOUT WORKER, agreed w/resident/PA/PRECISION LAYOUT WORKER, discussed with family, reviewed EMR data (avail), discussed with nursing, discussed with case mgmt, reviewed images, amended to note Attending Assessment/Plan: Patient with pmh of MS debilitating, legally blind, uses wheel chair but tries walker at times came with c/o generalsied weakness and diffculty to ambulate. Pateint is admitted to inpatient medical services for possible MS exacerbation and developed fevers with staph bacteremia. No new complaints reported. Afebrile , absent leukocytosis on steroids. Blood cultures 2/2 GPC+ repeat BC pending. Patient completed short course of iv high dose steroids as per Neurology Dr Alejandre. Supprotive care for MS ongoing. Continue with phenytoin home dose. Low back pain MRI no abscess/no OM. Bacteremia with fevers: c/w iv unasyn as per ID recommendations. Follow repeat blood cultures. thrombocytopenia: stable no bleeding reported. monitor for now PT consult recommend rehab placement. Fall precautions. GI/DVT prophylaxis Full code. Anticipate dc as clinical condition improves to rehab facility.
[2018-03-16 07:28] VITALS: BP 110/69
[2018-03-16 08:24] LABS: ABSOLUTE BASOPHIL COUNT 0 /CUMM (0.0-0.2); ABSOLUTE EOSINOPHIL COUNT 0 /CUMM (0.0-0.7); ABSOLUTE LYMPH COUNT 1.1 /CUMM (1.2-3.4); ABSOLUTE MONOCYTE COUNT 0.7 /CUMM (0.10-0.60)
[2018-03-16 08:43] LABS: ABSOLUTE GRANULOCYTE CT 4.3 /CUMM (1.4-6.5); BASOPHIL % 0.2 % (0.0-2.0); EOSINOPHIL % 0.3 % (0-5); GRANULOCYTE % 70.7 % (42.2-75.2); HEMATOCRIT 31.4 % (42-52); MEAN CORPUSCULAR HGB 36.2 PG (27.0-31.0); MEAN CORPUSCULAR HGB CONC 34.7 G/DL (33.0-37.0); MEAN CORPUSCULAR VOLUME 104.3 FL (80.0-94.0); MEAN PLATELET VOLUME 10.3 FL (7.4-10.4); RBC DISTRIBUTION WIDTH 17.5 % (11.5-14.5); RED BLOOD CELL CT 3.01 /CUMM (4.70-6.10); WHITE BLOOD CELL COUNT 6.1 /CUMM (4.8-10.8)
[2018-03-16 09:32] LABS: PLATELET COUNT 121 /CUMM (130-400)
--- NOTE | 2018-03-16 11:15 | PN- Student ---
Subjective Subjective: This morning, the patient was lying comfortably in bed with no overnight complaints. He states his back pain persists, rating a 6/10. The constant headache associated with his admitting symptoms has dissipated and he states the weakness in his legs has improved. He denies pain with urination, abdominal pain , fevers, chills, or diaphoresis. He reports not having a bowel movement in two days. ROS: General: See HPI Head: denies headaches, dizziness, or light headedness HEENT: denies nasal or sinus congestion Respiratory: denies SOB, dysnpea, or cough Cardiovascular: renies chest pain or palpiations Gastrointestinal: denies abdominal pain or tenderness Genitourinary: denies dysuria, hematuria, or urinary frequency Extremities: reports improved lower extremity weakness Objective Objective: Physical Exam: Vitals: T:97.4, HR: 91, RR: 18, BP: 110/69, O2: 99% General: patient was pleasant, laying in bed comfortably, in no acute distress HEENT: hearing grossly in tact, trachea midline, no trauma Respiratory: breath sounds ausculated bilaterally, no respiratory distress, wheezing, rhonchi, or rales Cardiovascular: regular rate and rhythm, S1 S2 noted Abdominal: no tenderness or guarding Neurologic: lower extremity weakness noted 4/5 throughout bilaterally, plantar strength 2/5 bilaterally. Sensation in tact. Results Results: Laboratory Tests 03/16/18 0718: Anion Gap 7, Estimated GFR > 60, BUN/Creatinine Ratio 31.4 H, CBC w Diff NO MAN DIFF REQ, RBC 3.01 L, MCV 104.3 H, MCH 36.2 H, MCHC 34.7, RDW 17.5 H, MPV 10.3, Gran % 70.7, Lymphocytes % 17.4 L, Monocytes % 11.4 H, Eosinophils % 0.3 , Basophils % 0.2, Absolute Granulocytes 4.3, Absolute Lymphocytes 1.1 L, Absolute Monocytes 0.7 H, Absolute Eosinophils 0, Absolute Basophils 0 03/15/18 0702: CBC w Diff MAN DIFF ORDERED, RBC 2.90 L, MCV 103.8 H, MCH 35.9 H, MCHC 34.6, RDW 17.5 H, MPV 11.1 H, Gran % 75.1, Lymphocytes % 14.5 L, Monocytes % 9.8 H , Eosinophils % 0.3, Basophils % 0.3, Absolute Granulocytes 3.9, Segmented Neutrophils 64, Band Neutrophils 10 H, Absolute Lymphocytes 0.8 L, Lymphocytes 16 L, Monocytes 9, Absolute Monocytes 0.5, Eosinophils 1, Absolute Eosinophils 0, Absolute Basophils 0, Platelet Estimate DECREASED, Anisocytosis 1+, Macrocytic Cells 1+ 03/14/18 1300: Lactic Acid Cancelled 03/14/18 1105: Lactic Acid 1.8 03/14/18 0835: Lactic Acid 2.4 H 03/14/18 0805: CBC w Diff MAN DIFF ORDERED, RBC 3.42 L, MCV 104.3 H, MCH 35.9 H, MCHC 34.4, RDW 17.6 H, MPV 10.1, Gran % 88.1 H, Lymphocytes % 8.1 L, Monocytes % 3.7, Eosinophils % 0, Basophils % 0.1, Absolute Granulocytes 3.6, Segmented Neutrophils 78 H, Band Neutrophils 11 H, Absolute Lymphocytes 0.3 L, Lymphocytes 6 L, Monocytes 4, Absolute Monocytes 0.2, Absolute Eosinophils 0, Basophils 1, Absolute Basophils 0, Poikilocytosis 1+, Anisocytosis 2+, Macrocytic Cells 2+ Microbiology 03/14 1720 BLOOD: Blood Culture - RES 03/14 1710 BLOOD: Blood Culture - RES 03/14 1424 STOOL: Clostridium difficile Toxin A & B - CAN Cancelled: SPECIMEN NOT RECEIVED IN LABORATORY 03/14 0815 BLOOD: Blood Culture - RES GRAM POSITIVE COCCI 03/14 0800 BLOOD: Blood Culture - RES GRAM POSITIVE COCCI Assessment/Plan Assessment: This patient is a 57 yo legally blind male with a history significant for MS, osteoporosis, and chronic back pain who BIBA to the ED on 03/11 with lower extremity weakness x1 day. Typically he ambulates with a walker, however the LE weakness made this impossible. This left him only his upper extremities to crawl around his home until he was found by his visiting nurse. On Thursday he spiked fevers up to 102 and was found to have bacteremia of unknown origin. Cultures identified MSSA and actinobacter and he was started on Unasyn 1.5 g IV Q 6 hours. Blood cultures x2 were obtained, the first displayed gram + cocci in clusters, the second set has yet to display growth. MRI displayed no acute changes, with evidence of urinary retention. Renal US showed non-obstructive calculi on the left and a distended bladder. Plan: Problem List: UTI of unknown origin: patient spiked fevers of 102 on thursday and has had intermittent tachycardia. Urinalysis displays bacturia. The first set of blood cultures display gram + cocci in clusters. The patient has no previous catheterization or instrumention. The source of the infection is unknown, with questioning bacteremia seeding the kidneys. If the second set of blood cultures are positive, we will follow-up with an echo to evaluate for endocarditis. - monitor blood cultures - possible need for echo - continue abx therapy MS exacerbation: the patient was admitted with lower extremity weakness and treated with 5 days of IV methylprednisone daily. He continued home medication regimen. Patient reports weakness has improved. He was seen by PT who recommended short term rehab. - plan to discharge to rehab tomorrow Chronic back pain: on admission the patient reported severe back pain that has persisted for months. He was seen in [place] ED this past October for a fall. Imaging at that time displayed L2 and L4 compression fractures. Imaging during this admission diplayed consistant, unchanging results. MRI displayed stable compression fractures at T12, L1, L2, and L4. He was given tramodol 50 mg 3 times daily for pain and Percocet for severe episodes of pain.
[2018-03-16 13:00] VITALS: BP 125/67
--- NOTE | 2018-03-16 17:38 | PN- Infect Dx ---
Subjective Subjective: Afebrile. He does not offer any specific complaints. A bladder scan earlier today revealed 285 cc of urine. Objective Last 24 Hrs of Vital Signs/I&O Vital Signs Date Time Temp Pulse Resp B/P B/P Pulse O2 O2 Flow FiO2 Mean Ox Delivery Rate 03/16 1300 98.0 102 16 125/67 95 Room Air 03/16 1144 Room Air 03/16 0728 97.4 91 18 110/69 99 03/16 0000 94 Room Air 03/15 2133 97.8 89 20 126/68 97 Room Air Intake & Output 03/16 1600 03/16 0800 03/16 0000 Intake Total 1100 220 220 Output Total 700 500 Balance 400 220 -280 Intake, IV 300 100 100 Intake, Oral 800 120 120 Number 0 Bowel Movements Output, Urine 700 500 Patient 152 lb Weight Weight Bed scale Measurement Method Physical Exam Other Physical Findings: He appears comfortable in no acute distress Lungs are clear Heart regular rhythm with a 1/6 systolic ejection murmur Abdomen is soft, nontender with positive bowel sounds Back left CVA tenderness Extremities no cyanosis, clubbing or edema Results Last 24 Hours of Lab Results: Laboratory Tests 03/16 0718 Chemistry Sodium (137 - 145 mmol/L) 138 Potassium (3.5 - 5.1 mmol/L) 3.6 Chloride (98 - 107 mmol/L) 103 Carbon Dioxide (22 - 30 mmol/L) 28 Anion Gap (5 - 16) 7 BUN (9 - 20 mg/dL) 22 H Creatinine (0.7 - 1.2 mg/dL) 0.7 Estimated GFR (>60 ml/min) > 60 BUN/Creatinine Ratio (7 - 25 %) 31.4 H Hematology CBC w Diff NO MAN DIFF REQ WBC (4.8 - 10.8 /CUMM) 6.1 RBC (4.70 - 6.10 /CUMM) 3.01 L Hgb (14.0 - 18.0 G/DL) 10.9 L Hct (42 - 52 %) 31.4 L MCV (80.0 - 94.0 FL) 104.3 H MCH (27.0 - 31.0 PG) 36.2 H MCHC (33.0 - 37.0 G/DL) 34.7 RDW (11.5 - 14.5 %) 17.5 H Plt Count (130 - 400 /CUMM) 121 L MPV (7.4 - 10.4 FL) 10.3 Gran % (42.2 - 75.2 %) 70.7 Lymphocytes % (20.5 - 51.1 %) 17.4 L Monocytes % (1.7 - 9.3 %) 11.4 H Eosinophils % (0 - 5 %) 0.3 Basophils % (0.0 - 2.0 %) 0.2 Absolute Granulocytes (1.4 - 6.5 /CUMM) 4.3 Absolute Lymphocytes (1.2 - 3.4 /CUMM) 1.1 L Absolute Monocytes (0.10 - 0.60 /CUMM) 0.7 H Absolute Eosinophils (0.0 - 0.7 /CUMM) 0 Absolute Basophils (0.0 - 0.2 /CUMM) 0 Last 24 Hours of Julián Results: Blood cultures March 14 positive for Staph aureus sensitive to Oxacillin Blood cultures March 14 negative Recent Imaging Studies: Renal ultrasound March 15 reveals a markedly distended bladder, with 2 nonobstructing left renal calculi Assessment/Plan ID Impression: Staph aureus bacteremia, most likely secondary to a urinary tract infection, given his complaints of urinary symptoms prior to admission, with decreased stream and decreased volume, left CVA tenderness and with his urine culture positive for Staph aureus (in addition he Enterobacter). Significant bladder distention was noted on the MRI and renal ultrasound, and, though his bladder scan only yielded 285 cc of urine, he should be catheterized to rule out increased residual. Given the isolation of Staph aureus in the blood he will require a minimum of 2 weeks of IV antibiotics and, possibly longer, if he proves to have endocarditis. Suggestion: 1. Straight cath to rule out urinary retention and initiate straight cath protocol if present 2. Repeat blood cultures 2 3. Echocardiogram 4. Continue Unasyn
[2018-03-16 21:49] VITALS: BP 112/63
[2018-03-17 06:39] VITALS: BP 121/83
--- NOTE | 2018-03-17 06:45 | PN- Housestaff ---
Hetal Avila 03/17/18 0645: Subjective Follow-up For: MS exacerbation Chronic low back pain Subjective: Patient seen and examined lying comfortably in bed this morning he does complain of 6 x 10 low back pain. He is anxious about his echocardiogram today and reports feeling short of breath due to the anxiety. No other complaints. No acute events overnight. Review of Systems Constitutional: Reports: see HPI. Objective Last 24 Hrs of Vital Signs/I&O Vital Signs Date Time Temp Pulse Resp B/P B/P Pulse O2 O2 Flow FiO2 Mean Ox Delivery Rate 03/17 1403 98.0 98 18 127/65 100 Room Air 03/17 0639 98.3 97 20 121/83 98 Room Air 03/16 2149 98.3 99 18 112/63 96 Room Air Intake & Output 03/17 1600 03/17 0800 03/17 0000 Intake Total 500 340 Output Total 1100 830 300 Balance -600 -490 -300 Intake, IV 100 Intake, Oral 500 240 Output, Urine 1100 830 300 Physical Exam General Appearance: Alert, Oriented X3, Cooperative Other Physical Findings: Alert, Oriented X3, Cooperative, No Acute Distress Skin: Erythema noticed on the lateral surface of the left hip Skin Temp/Moisture Exam: Warm/Dry Sepsis Skin Exam (color): Normal for Ethnicity HEENT: Legally blind, atraumatic, mucous Membr. moist/pink Neck: Supple, No JVD Cardiovascular: Regular Rate, Normal S1, Normal S2, No Murmurs Lungs: CTA, No w/r/r Abdomen: Normal Bowel Sounds, Soft, No Tenderness, No Hepatospenomegaly Neurological: Normal Speech, normal Tone, Sensation Intact Extremities: No Clubbing, No Cyanosis, No edema,Normal Pulses Vascular: Pulses Symmetrical Assessment/Plan Assessment: This is a 57 yo gentleman with past medical history of MS diagnosed 15 years ago and osteoporosis possibly secondary to chronic steroid use and is admitted to the [facility] after he presented to the ED with sudden onset bilateral lower extremity wekaness. The patient has a recent history of compression fractures of vertebrae. Problems: Urine culture grew Acinetobacter and MSSA compression fractures Assessment and plan: consider doing a transesophageal echocardiogram and we will consult cardiology as the suspicion for infective endocarditis is high. Diet: Regular diet Problem List: 1. Exacerbation of multiple sclerosis 2. Vertebral compression fracture 3. Fall Pain Ratin Pain Location: Low back Pain Goal: Pain 4 or less Pain Plan: Follow pain pathway Tomorrow's Labs & Rationales: CBCT Thierno Watson 03/17/18 1133: Attending MD Review Statement Attending Statement Attending MD Statement: examined this patient, discuss w/resident/PA/SPRING MACHINE OPERATOR, agreed w/resident/PA/SPRING MACHINE OPERATOR, discussed with family, reviewed EMR data (avail), discussed with nursing, discussed with case mgmt, reviewed images, amended to note Attending Assessment/Plan: Patient with pmh of MS debilitating, legally blind, uses wheel chair but tries walker at times came with c/o generalsied weakness and difficulty to ambulate. Pateint is admitted to inpatient medical services for possible MS exacerbation and developed fevers with staph bacteremia with unknown source. No new complaints reported. Afebrile , absent leukocytosis on steroids. repeat blood cultures+. Plan for TTE. Patient completed short course of iv high dose steroids as per Neurology Dr Alejandre. Supprotive care for MS ongoing. Continue with phenytoin home dose. Low back pain MRI no abscess/no OM. Bacteremia with fevers: c/w iv unasyn as per ID recommendations. Plan for TTE. Consider cardiology consult for ?DESEAN. thrombocytopenia: stable no bleeding reported. monitor for now PT consult recommend rehab placement. Fall precautions. GI/DVT prophylaxis Full code. Anticipate dc as clinical condition improves to rehab facility.
[2018-03-17 07:57] LABS: ABSOLUTE BASOPHIL COUNT 0 /CUMM (0.0-0.2); ABSOLUTE EOSINOPHIL COUNT 0.1 /CUMM (0.0-0.7); ABSOLUTE GRANULOCYTE CT 4.8 /CUMM (1.4-6.5); ABSOLUTE LYMPH COUNT 1.1 /CUMM (1.2-3.4); ABSOLUTE MONOCYTE COUNT 0.9 /CUMM (0.10-0.60); BASOPHIL % 0.3 % (0.0-2.0); EOSINOPHIL % 0.9 % (0-5); MEAN CORPUSCULAR HGB 35.8 PG (27.0-31.0); MEAN CORPUSCULAR HGB CONC 34.1 G/DL (33.0-37.0); MEAN PLATELET VOLUME 9.6 FL (7.4-10.4); RBC DISTRIBUTION WIDTH 17.6 % (11.5-14.5); RED BLOOD CELL CT 3.15 /CUMM (4.70-6.10); WHITE BLOOD CELL COUNT 6.9 /CUMM (4.8-10.8)
[2018-03-17 08:17] LABS: PLATELET COUNT 185 /CUMM (130-400)
--- NOTE | 2018-03-17 13:43 | PN- Infect Dx ---
Subjective Subjective: Afebrile without complaints. Straight cath last evening yielded 450 cc of urine and he is now on a straight cath protocol. Objective Last 24 Hrs of Vital Signs/I&O Vital Signs Date Time Temp Pulse Resp B/P B/P Pulse O2 O2 Flow FiO2 Mean Ox Delivery Rate 03/17 0639 98.3 97 20 121/83 98 Room Air 03/16 2149 98.3 99 18 112/63 96 Room Air Intake & Output 03/17 1600 03/17 0800 03/17 0000 Intake Total 340 Output Total 100 830 300 Balance -100 -490 -300 Intake, IV 100 Intake, Oral 240 Output, Urine 100 830 300 Physical Exam Other Physical Findings: He appears comfortable in no acute distress Lungs are clear Heart regular rhythm with no murmur Abdomen is soft, nontender with positive bowel sounds Back no CVA tenderness Results Last 24 Hours of Lab Results: Laboratory Tests 03/17 0720 Hematology CBC w Diff NO MAN DIFF REQ WBC (4.8 - 10.8 /CUMM) 6.9 RBC (4.70 - 6.10 /CUMM) 3.15 L Hgb (14.0 - 18.0 G/DL) 11.2 L Hct (42 - 52 %) 33.0 L MCV (80.0 - 94.0 FL) 105.0 H MCH (27.0 - 31.0 PG) 35.8 H MCHC (33.0 - 37.0 G/DL) 34.1 RDW (11.5 - 14.5 %) 17.6 H Plt Count (130 - 400 /CUMM) 185 MPV (7.4 - 10.4 FL) 9.6 Gran % (42.2 - 75.2 %) 70.0 Lymphocytes % (20.5 - 51.1 %) 15.4 L Monocytes % (1.7 - 9.3 %) 13.4 H Eosinophils % (0 - 5 %) 0.9 Basophils % (0.0 - 2.0 %) 0.3 Absolute Granulocytes (1.4 - 6.5 /CUMM) 4.8 Absolute Lymphocytes (1.2 - 3.4 /CUMM) 1.1 L Absolute Monocytes (0.10 - 0.60 /CUMM) 0.9 H Absolute Eosinophils (0.0 - 0.7 /CUMM) 0.1 Absolute Basophils (0.0 - 0.2 /CUMM) 0 Last 24 Hours of Julián Results: Blood cultures x 4 March 14 positive for Staph aureus Blood cultures x2 March 16 negative Assessment/Plan ID Impression: Stable, with temperatures and white blood cell count remaining normal, on Unasyn , Day 3 of treatment for Staph aureus bacteremia, most likely secondary to a urinary tract infection, with his urine culture positive for Staph aureus (in addition he Enterobacter). He does have evidence for urinary retention, likely secondary to his underlying multiple sclerosis, and he is now on a straight cath protocol. Given the isolation of Staph aureus in the blood he will require a minimum of 2 weeks of IV antibiotics and, possibly longer (if he proves to have endocarditis). Suggestion: 1. Would proceed with placement of a PICC if his recent blood cultures remain negative 2. Await echocardiogram, with consideration of DESEAN if negative 3. Continue straight cath protocol 4. Continue Unasyn
[2018-03-17 14:03] VITALS: BP 127/65
[2018-03-17 22:40] VITALS: BP 120/80
--- NOTE | 2018-03-18 06:45 | PN- Housestaff ---
See Addendum Subjective Follow-up For: S. aureus Bacteremia Possible Inf. endocarditis? MS exacerbation Chronic low back pain Subjective: Patient was seen and examined lying comfortably in bed this morning. He just now completed his breakfast. He does complain of the chronic low back pain being 6/10. He does not report dysuria, urgency, frequency, hematuria. Reports that shortness of breath from yesterday is resolved and he had no more episodes of shortness of breath. He states that he is anxiously waiting for his transthoracic echocardiogram. Review of Systems Constitutional: Reports: see HPI. Musculoskeletal: Reports: back pain. Objective Last 24 Hrs of Vital Signs/I&O Vital Signs Date Time Temp Pulse Resp B/P B/P Pulse O2 O2 Flow FiO2 Mean Ox Delivery Rate 03/18 1024 97.6 03/18 0656 99.0 104 19 110/62 94 03/17 2240 98.3 105 19 120/80 96 Room Air 03/17 1403 98.0 98 18 127/65 100 Room Air Intake & Output 03/18 1600 03/18 0800 03/18 0000 Intake Total 440 Output Total 1200 700 Balance -760 -700 Intake, IV 200 Intake, Oral 240 Output, Urine 1200 700 Physical Exam General Appearance: Alert, Oriented X3, Cooperative, No Acute Distress Other Physical Findings: Skin: Tender erythema on the lateral surface of the left hip Skin Temp/Moisture Exam: Warm/Dry Sepsis Skin Exam (color): Normal for Ethnicity HEENT: Atraumatic, mucous Membr. moist/pink Neck: Supple, No JVD, No thryomegaly Cardiovascular: Regular Rate, Normal S1, Normal S2, No Murmurs Lungs: CTA, No w/r/r Abdomen: Normal Bowel Sounds, Soft, No Tenderness, No Hepatospenomegaly Neurological: Normal Speech, Normal Tone, Sensation Intact Extremities: No Clubbing, No Cyanosis, No edema,Normal Pulses Vascular: Pulses Symmetrical Current Medications: Current Medications Sig/Monica Start time Last Medication Dose Route Stop Time Status Admin Acetaminophen 650 MG Q6P PRN 03/11 1600 AC 03/14 PO 0611 Ampicillin Sodium/ 3,000 MG Q6 03/15 1800 AC 03/18 Sulbactam Sodium IV 0518 Sodium Chloride 100 ML Azathioprine 150 MG DAILY 03/12 0900 AC 03/17 PO 09 Baclofen 20 MG TID 03/12 1400 AC 03/17 PO 2005 Bisacodyl 5 MG DAILY PRN 03/12 1345 AC 03/12 PO 1733 Cholecalciferol 1,000 IU DAILY 03/12 0900 AC 03/17 PO 915 Gabapentin 400 MG TID 03/11 2100 AC 03/17 PO 2005 Lorazepam 1 MG Q6-PRN PRN 03/12 1345 AC 03/14 IV 0612 Oxycodone/ 2 TAB Q6P PRN 03/11 1600 AC 03/17 Acetaminophen PO 232 Phenytoin 100 MG TID 03/11 2100 AC 03/17 PO 2005 Polyethylene Glycol 17 GM DAILY 03/12 09 AC 03/17 PO 915 Senna/Docusate Sodium 1 TAB BID 03/12 0227 AC 03/17 PO 2005 Tramadol HCl 50 MG TID PRN 03/11 1700 AC 03/17 PO 925 Last 24 Hrs of Lab/Julián Results Last 24 Hrs of Labs/Mics: Laboratory Tests 03/18/18 0735: CBC w Diff NO MAN DIFF REQ, RBC 3.48 L, MCV 104.7 H, MCH 35.8 H, MCHC 34.2, RDW 17.3 H, MPV 9.3, Gran % 73.2, Lymphocytes % 12.9 L, Monocytes % 12.3 H, Eosinophils % 1.2, Basophils % 0.4, Absolute Granulocytes 5.4, Absolute Lymphocytes 1.0 L, Absolute Monocytes 0.9 H, Absolute Eosinophils 0.1, Absolute Basophils 0 Assessment/Plan Assessment: This is a 57 yo gentleman with past medical history of MS diagnosed 15 years ago and osteoporosis possibly secondary to chronic steroid use and is admitted to the [facility] after he presented to the ED with sudden onset bilateral lower extremity wekaness. Problems: Urine culture grew Acinetobacter and MSSA Assessment and plan: consider doing a transesophageal echocardiogram and we will consult cardiology as the suspicion for infective endocarditis is high. scans showed urine more than 300ml) Diet: Regular diet Problem List: 1. Fall 2. Vertebral compression fracture 3. Exacerbation of multiple sclerosis 4. Bacteremia due to Staphylococcus aureus Pain Ratin Pain Location: Lower back Pain Goal: Pain 4 or less Pain Plan: Pain pathway Tomorrow's Labs & Rationales: CBC
[2018-03-18 06:56] VITALS: BP 110/62
[2018-03-18 09:08] LABS: ABSOLUTE BASOPHIL COUNT 0 /CUMM (0.0-0.2); ABSOLUTE EOSINOPHIL COUNT 0.1 /CUMM (0.0-0.7); ABSOLUTE GRANULOCYTE CT 5.4 /CUMM (1.4-6.5); ABSOLUTE MONOCYTE COUNT 0.9 /CUMM (0.10-0.60); BASOPHIL % 0.4 % (0.0-2.0); EOSINOPHIL % 1.2 % (0-5); GRANULOCYTE % 73.2 % (42.2-75.2); HEMATOCRIT 36.4 % (42-52); MEAN CORPUSCULAR HGB 35.8 PG (27.0-31.0); MEAN CORPUSCULAR HGB CONC 34.2 G/DL (33.0-37.0); MEAN CORPUSCULAR VOLUME 104.7 FL (80.0-94.0); MEAN PLATELET VOLUME 9.3 FL (7.4-10.4); PLATELET COUNT 234 /CUMM (130-400); RBC DISTRIBUTION WIDTH 17.3 % (11.5-14.5); RED BLOOD CELL CT 3.48 /CUMM (4.70-6.10); WHITE BLOOD CELL COUNT 7.4 /CUMM (4.8-10.8)
[2018-03-18 14:09] VITALS: BP 100/63
[2018-03-18 21:24] VITALS: BP 111/63
[2018-03-19 06:20] VITALS: BP 98/75
--- NOTE | 2018-03-19 07:03 | PN- Housestaff ---
See Addendum Subjective Follow-up For: Methicillin sensitive staph aureus bacteremia, MS exacerbation Complaints: no complaints Subjective: Patient seen and examined sitting comfortably in bed this morning. He does complain of a 4/10 chronic low back pain. He wants to try to pass urine in the urinal as he says straight cath has been painful for him. No other complaints Review of Systems Constitutional: Reports: see HPI. Objective Last 24 Hrs of Vital Signs/I&O Vital Signs Date Time Temp Pulse Resp B/P B/P Pulse O2 O2 Flow FiO2 Mean Ox Delivery Rate 03/19 0635 18 03/19 0620 99.4 104 98/75 85 03/18 2124 98.3 112 18 111/63 98 Room Air 03/18 1409 97.9 100 20 100/63 93 Intake & Output 03/19 1600 03/19 0800 03/19 0000 Intake Total 260 580 Output Total 500 400 Balance -240 180 Intake, IV 200 100 Intake, Oral 60 480 Output, Urine 500 400 Physical Exam General Appearance: Alert, Oriented X3, Cooperative Other Physical Findings: Skin: Nontender tender erythema on the lateral surface of the left hip Skin Temp/Moisture Exam: Warm/Dry Sepsis Skin Exam (color): Normal for Ethnicity HEENT: Atraumatic, mucous Membr. moist/pink Neck: Supple, No JVD, No thryomegaly Cardiovascular: Regular Rate, Normal S1, Normal S2, No Murmurs Lungs: CTA, No w/r/r Abdomen: Normal Bowel Sounds, Soft, No Tenderness, No Hepatospenomegaly Neurological: Normal Speech, Normal Tone, Sensation Intact Extremities: No Clubbing, No Cyanosis, No edema,Normal Pulses Vascular: Pulses Symmetrical Current Medications: Current Medications Sig/Monica Start time Last Medication Dose Route Stop Time Status Admin Acetaminophen 650 MG Q6P PRN 03/11 1600 AC 03/14 PO 0611 Ampicillin Sodium/ 3,000 MG Q6 03/15 1800 AC 03/19 Sulbactam Sodium IV 0508 Sodium Chloride 100 ML Azathioprine 150 MG DAILY 03/12 0900 AC 03/18 PO 1036 Baclofen 20 MG TID 03/12 1400 AC 03/18 PO 2131 Bisacodyl 5 MG DAILY PRN 03/12 1345 AC 03/12 PO 1733 Cholecalciferol 1,000 IU DAILY 09/21 0900 AC 03/18 PO 1036 Gabapentin 400 MG TID 03/11 2100 AC 03/18 PO 2131 Heparin Sodium 5,000 UNIT Q8 03/18 2200 AC 03/19 (Porcine) SC 0525 Lorazepam 1 MG Q6-PRN PRN 03/12 1345 AC 03/14 IV 0612 Oxycodone/ 2 TAB Q6P PRN 03/11 1600 DC 03/18 Acetaminophen PO 1038 Phenytoin 100 MG TID 03/11 2100 AC 03/18 PO 2131 Polyethylene Glycol 17 GM DAILY 03/19 0900 AC PO Polyethylene Glycol 17 GM DAILY 03/12 0900 AC 03/18 PO 1036 Senna/Docusate Sodium 1 TAB BID 03/12 0227 AC 03/18 PO 2131 Tramadol HCl 50 MG TID PRN 03/11 1700 DC 03/18 PO 1637 Assessment/Plan Assessment: 57 yo man with past medical history of MS, and osteoporosis possibly secondary to chronic steroid use and was admitted to the [facility] after he presented to the ED with sudden onset bilateral lower extremity weakness and a fall. Transthoracic echocardiogram: March 18, 2018: Stage I diastolic dysfunction, mild mitral regurg, no evidence of infective endocarditis. Problems: Urine culture grew Acinetobacter and MSSA Assessment and plan: endocarditis. The likelihood of infective endocarditis is moderate, looking at his clinical picture and staph aureus bacteremia. We will discuss the need to get transesophageal echocardiogram today. Diet: Regular diet Problem List: 1. Bacteremia due to Staphylococcus aureus 2. Fall 3. Vertebral compression fracture 4. Exacerbation of multiple sclerosis Pain Ratin Pain Location: Low back Pain Goal: Pain 4 or less Pain Plan: Follow pain pathway Tomorrow's Labs & Rationales: cbc, bep
--- NOTE | 2018-03-19 09:07 | ECHOCARDIOGRAM REPORT ---
DIANE THOMAS Age: 57 : 1960 Gender: M Exam Date: 03/18/2018 11:11 Exam Location: [address] [place] [address] Ht (in): 72 Wt (lb): 151 BSA: 1.86 BP: 121 / 83 Ordering Physician: Romel Peters MD Referring Physician: Romel Peters MD Technologist: Dimitris Nicholson [facility] Room Number: 217-1 Indications: Infective endocarditis Rhythm: Sinus Technical Quality: Technically difficult study FINDINGS Left Ventricle Normal size left ventricle. Mild concentric left ventricular hypertrophy. Abnormal relaxation filling pattern of the left ventricle for age (stage 1 diastolic dysfunction). Right Ventricle Normal right ventricular size and function. Right Atrium Normal right atrial size. Left Atrium Normal left atrial size. Mitral Valve Mild mitral annular calcification. Mild mitral regurgitation. Aortic Valve Aortic valve mildly thickened. No aortic stenosis. No aortic regurgitation. Tricuspid Valve Trace tricuspid regurgitation. No evidence of pulmonary hypertension. Tricuspid valve not well visualized, grossly normal. Pulmonic Valve Pulmonic valve not well visualized, grossly normal. Pericardium No pericardial effusion. Great Vessels Normal size aortic root. CONCLUSIONS Normal size left ventricle. Mild concentric left ventricular hypertrophy. Abnormal relaxation filling pattern of the left ventricle for age (stage 1 diastolic dysfunction). Mild mitral regurgitation. No evidence of endocarditis seen. Would consider DESEAN if clinical suspicion for endocarditis. Colby Sanchez M.D. (Electronically Signed) Final Date: 19 March 2018 09:06 MEASUREMENTS (Male / Female) Normal Values 2D ECHO LV Diastolic Diameter PLAX 4.4 cm 4.2 - 5.9 / 3.9 - 5.3 cm LV Systolic Diameter PLAX 3.2 cm 2.1 - 4.0 cm LV Fractional Shortening PLAX 27.3 % 25 - 46 % LV Ejection Fraction 2D Teich 53.3 % IVS Diastolic Thickness 1.2 cm LVPW Diastolic Thickness 1.2 cm LV Relative Wall Thickness 0.5 RV Internal Dim ED PLAX 2.2 cm 1.9 - 3.8 cm LVOT Diameter 2.5 cm Aortic Root Diameter 3.8 cm LA Systolic Diameter LX 2.9 cm 3.0 - 4.0 / 2.7 - 3.8 cm Ascending Aorta Diameter 3.1 cm DOPPLER MV Peak Velocity 85.9 cm/s MV Peak Gradient 3.0 mmHg MV Mean Velocity 44.1 cm/s MV Mean Gradient 1.0 mmHg Mitral E Point Velocity 41.5 cm/s Mitral A Point Velocity 63.7 cm/s Mitral E to A Ratio 0.7 MV PHT Velocity 53.0 cm/s MV Deceleration Thayer 125.0 cm/s MV Pressure Half Time 127.2 ms MV Area PHT 1.7 cm MV Deceleration Time 415.0 ms MR Peak Velocity 584.0 cm/s MR Peak Gradient 136.4 mmHg TR Peak Velocity 213.0 cm/s TR Peak Gradient 18.1 mmHg Right Atrial Pressure 5.0 mmHg Pulmonary Artery Systolic Pressure 23.1 mmHg Right Ventricular Systolic Pressure 23.1 mmHg PV Peak Velocity 75.8 cm/s PV Peak Gradient 2.3 mmHg PV Mean Velocity 54.6 cm/s PV Mean Gradient 1.0 mmHg PV Velocity Time Integral 12.0 cm LV E' Lateral Velocity 13.2 cm/s Mitral E to LV E' Lateral Ratio 3.1 LV E' Septal Velocity 10.5 cm/s Mitral E to LV E' Septal Ratio 4.0
--- NOTE | 2018-03-19 13:54 | PN- Infect Dx ---
Subjective Subjective: Afebrile. He complains of back pain with any movement. He offers no other complaints. He is continuing on the straight cath protocol, with 500 cc obtained overnight. Objective Last 24 Hrs of Vital Signs/I&O Vital Signs Date Time Temp Pulse Resp B/P B/P Pulse O2 O2 Flow FiO2 Mean Ox Delivery Rate 03/19 0635 18 03/19 0620 99.4 104 98/75 85 03/18 2124 98.3 112 18 111/63 98 Room Air 03/18 1409 97.9 100 20 100/63 93 Intake & Output 03/19 1600 03/19 0800 03/19 0000 Intake Total 260 580 Output Total 500 400 Balance -240 180 Intake, IV 200 100 Intake, Oral 60 480 Number 1 Bowel Movements Output, Urine 500 400 Physical Exam Other Physical Findings: He appears comfortable in no acute distress Lungs are clear Heart regular rhythm with no murmur Abdomen is soft, nontender with positive bowel sounds Results Last 24 Hours of Lab Results: Laboratory Tests 03/18 0735 Hematology CBC w Diff NO MAN DIFF REQ WBC (4.8 - 10.8 /CUMM) 7.4 RBC (4.70 - 6.10 /CUMM) 3.48 L Hgb (14.0 - 18.0 G/DL) 12.4 L Hct (42 - 52 %) 36.4 L MCV (80.0 - 94.0 FL) 104.7 H MCH (27.0 - 31.0 PG) 35.8 H MCHC (33.0 - 37.0 G/DL) 34.2 RDW (11.5 - 14.5 %) 17.3 H Plt Count (130 - 400 /CUMM) 234 MPV (7.4 - 10.4 FL) 9.3 Gran % (42.2 - 75.2 %) 73.2 Lymphocytes % (20.5 - 51.1 %) 12.9 L Monocytes % (1.7 - 9.3 %) 12.3 H Eosinophils % (0 - 5 %) 1.2 Basophils % (0.0 - 2.0 %) 0.4 Absolute Granulocytes (1.4 - 6.5 /CUMM) 5.4 Absolute Lymphocytes (1.2 - 3.4 /CUMM) 1.0 L Absolute Monocytes (0.10 - 0.60 /CUMM) 0.9 H Absolute Eosinophils (0.0 - 0.7 /CUMM) 0.1 Absolute Basophils (0.0 - 0.2 /CUMM) 0 Last 24 Hours of Julián Results: Blood cultures x 2 March 16 negative Recent Imaging Studies: Echocardiogram March 16 no vegetations Assessment/Plan ID Impression: Stable, with temperatures and white blood cell count remaining normal, on Unasyn , Day 5 of treatment for Staph aureus bacteremia, most likely secondary to a urinary tract infection, with his urine culture positive for Staph aureus (in addition he Enterobacter). He continues to have urinary retention, requiring a straight cath protocol. Given the isolation of Staph aureus in the blood he will require a minimum of 2 weeks of IV antibiotics and, possibly longer (if he proves to have endocarditis). His transthoracic echocardiogram was negative, and he is scheduled for a DESEAN. Suggestion: 1. Would pursue placement of a PICC 2. Await DESEAN 3. Continue Unasyn
[2018-03-19 14:03] VITALS: BP 120/60
--- NOTE | 2018-03-19 15:18 | Cons- Cardiology ---
General Information and HPI Consulting Request Date of Consult: 03/19/18 Requested By: Thierno Watson MD Reason for Consult: Bacteremia Source of Information: patient, old records History of Present Illness: This is a 57-year-old male with a past medical history of multiple sclerosis and osteoporosis who was admitted to [facility] with a chief complaint of lower semi-weakness and inability to ambulate; he was subsequently found to have fevers and bacteremia. He denies associated chest pain, dyspnea, or palpitations. Denies syncope. Denies any known history of prior endocarditis. He does have urinary retention. Denies orthopnea or paroxysmal nocturnal dyspnea. Allergies/Medications Allergies: Coded Allergies: mold (04/30/16) Home Med List: Alendronate Sodium 70 MG TABLET 1 TAB PO Mo Osteoporosis (Reported) Azathioprine (Imuran) 50 MG TABLET 3 TAB PO DAILY MS (Reported) Baclofen 10 MG TABLET 1 TAB PO TID MS (Reported) Cholecalciferol (Vitamin D3) 1,000 UNIT TABLET 1 TAB PO DAILY Bone strength Gabapentin 400 MG CAPSULE 1 CAP PO TID MS (Reported) Ibuprofen 800 MG TABLET 1 TAB PO TID PAIN (Reported) Lidocaine 5 % ADH..PATCH 1 PAT TOP DAILY Back pain Lubiprostone (Amitiza) 24 MCG CAPSULE 1 CAP PO BID CONSTIPATION (Reported) Phenytoin Sodium Extended 100 MG CAPSULE 1 CAP PO TID MS (Reported) Tramadol HCl 50 MG TABLET 1 TAB PO TID PAIN (Reported) Current Medications: Current Medications Sig/Monica Start time Last Medication Dose Route Stop Time Status Admin Acetaminophen 650 MG Q6P PRN 03/11 1600 AC 03/14 PO 0611 Ampicillin Sodium/ 3,000 MG Q6 03/15 1800 AC 03/19 Sulbactam Sodium IV 1316 Sodium Chloride 100 ML Azathioprine 150 MG DAILY 03/12 09 AC 03/19 PO 1054 Baclofen 20 MG TID 03/12 1400 AC 03/19 PO 1316 Bisacodyl 5 MG DAILY PRN 03/12 1345 AC 03/12 PO 1733 Cholecalciferol 1,000 IU DAILY 03/12 0900 AC 03/19 PO 1053 Gabapentin 400 MG TID 03/11 2100 AC 03/19 PO 1316 Heparin Sodium 5,000 UNIT Q8 03/18 2200 AC 03/19 (Porcine) SC 1319 Lorazepam 1 MG Q6-PRN PRN 03/12 1345 AC 03/19 IV 1315 Oxycodone/ 0 .STK-MED ONE 03/19 1100 CAN Acetaminophen PO 03/19 1101 Oxycodone/ 2 TAB Q6P PRN 03/19 1100 AC 03/19 Acetaminophen PO 1054 Oxycodone/ 0 .STK-MED ONE 03/19 1043 CAN Acetaminophen PO Oxycodone/ 2 TAB Q6P PRN 03/11 1600 DC 03/18 Acetaminophen PO 1038 Phenytoin 100 MG TID 03/11 2100 AC 03/19 PO 1316 Polyethylene Glycol 17 GM DAILY 03/19 0900 AC PO Polyethylene Glycol 17 GM DAILY 03/12 0900 AC 03/19 PO 1053 Senna/Docusate Sodium 1 TAB BID 03/12 0227 AC 03/18 PO 2131 Tramadol HCl 50 MG TID PRN 03/11 1700 DC 03/18 PO 1637 Review of Systems Review of Systems: Review of systems as per HPI. The remainder of a 10 point review of systems was reviewed and was otherwise negative. 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 Home Services at Home: Home Health Aide Smoking Status: Current Everyday Smoker ETOH Use: occasional use (denies daily use/trying quit) Illicit Drug Use: denies illicit drug use, history of crack/marijuana use 1980s Exam & Diagnostic Data Vital Signs and I&O Vital Signs Date Time Temp Pulse Resp B/P B/P Pulse O2 O2 Flow FiO2 Mean Ox Delivery Rate 03/19 1403 98.2 80 20 120/60 97 Room Air 03/19 0635 18 03/19 0620 99.4 104 98/75 85 03/18 2124 98.3 112 18 111/63 98 Room Air Intake & Output 03/19 1600 03/19 0800 03/19 0000 03/18 1600 03/18 0000 Intake Total 260 580 550 440 Output Total 400 500 483 369 4219 700 Balance -400 -240 180 -150 -760 -700 Intake, IV 200 100 150 200 Intake, Oral 60 480 400 240 Number 1 Bowel Movements Output, Urine 400 500 848 598 2484 700 Physical Exam: General: no apparent distress. Alert. Eyes: No obvious scleral icterus. HEENT: No jugular venous distention or abnormal jugular venous pulsations. Cardiovascular: Normal intensity S1/S2. Regular Respiratory: No rales or rhonchi Abdomen: no guarding or rebound tenderness. Musculoskeletal: No clubbing or cyanosis noted Skin: warm Neurologic: Normal speech Labs/Julián Results: Laboratory Tests 03/18 0735 Hematology CBC w Diff NO MAN DIFF REQ WBC (4.8 - 10.8 /CUMM) 7.4 RBC (4.70 - 6.10 /CUMM) 3.48 L Hgb (14.0 - 18.0 G/DL) 12.4 L Hct (42 - 52 %) 36.4 L MCV (80.0 - 94.0 FL) 104.7 H MCH (27.0 - 31.0 PG) 35.8 H MCHC (33.0 - 37.0 G/DL) 34.2 RDW (11.5 - 14.5 %) 17.3 H Plt Count (130 - 400 /CUMM) 234 MPV (7.4 - 10.4 FL) 9.3 Gran % (42.2 - 75.2 %) 73.2 Lymphocytes % (20.5 - 51.1 %) 12.9 L Monocytes % (1.7 - 9.3 %) 12.3 H Eosinophils % (0 - 5 %) 1.2 Basophils % (0.0 - 2.0 %) 0.4 Absolute Granulocytes (1.4 - 6.5 /CUMM) 5.4 Absolute Lymphocytes (1.2 - 3.4 /CUMM) 1.0 L Absolute Monocytes (0.10 - 0.60 /CUMM) 0.9 H Absolute Eosinophils (0.0 - 0.7 /CUMM) 0.1 Absolute Basophils (0.0 - 0.2 /CUMM) 0 Diagnostic Data EKG Results Tracing was personally reviewed and shows sinus tachycardia CXR Results Severe emphysematous blebs involving primarily the upper lobes. This has not changed. No acute infiltrates. Costophrenic angles are sharp. There is no pneumothorax. Heart mediastinum and shira unchanged. Other Results Transthoracic echocardiogram Normal size left ventricle. Mild concentric left ventricular hypertrophy. Abnormal relaxation filling pattern of the left ventricle for age (stage 1 diastolic dysfunction). Mild mitral regurgitation. No evidence of endocarditis seen. Would consider DESEAN if clinical suspicion for endocarditis. Assessment/Plan Assessment/Plan 1. Weakness 2. Bacteremia 3. Multiple sclerosis 4. Thrombocytopenia, improved 5. Urinary tract infection The patient is found to have staph aureus bacteremia most likely due to urinary tract infection; transthoracic echocardiogram showed no obvious vegetations and a cardiology consult was requested in order to pursue transesophageal echocardiogram in order to definitively rule out endocarditis as this would change his planned antibiotic course. Discussed the risks versus benefits with the patient at length and he is willing to proceed. Please keep the patient n.p.o. after midnight on Thursday with the plan to proceed with transesophageal echocardiogram on Thursday. Sammy Yi MD [facility] Consult Acknowledgment - Thank you for your consult request.
--- NOTE | 2018-03-19 16:26 | Patient Discharge Instructions ---
Discharge Instructions General Discharge Information You were seen/treated for: staphylococcus aureus bacteremia, urinary trach infection You had these procedures: PICC line Special Instructions: -please call branch library clerk to get Transesophageal Echocardiogram done SOON POSSIBLE after discharge -please see your primary care doctor one week after discharge Diet Continue normal diet: Yes Activity Activity Self Limited: Yes Acute Coronary Syndrome Inclusion Criteria At DC or during hospital stay patient has or had the following: ACS DIAGNOSIS No Discharge Core Measures Meds if any: Prescribed or Continued at Discharge Meds if any: NOT Prescribed or Continued at Discharge Congestive Heart Failure Inclusion Criteria At DC or during hospital stay patient has or had the following: CHF DIAGNOSIS No Discharge Core Measures Meds if any: Prescribed or Continued at Discharge Meds if any: NOT Prescribed or Continued at Discharge Cerebrovascular accident Inclusion Criteria At DC or during hospital stay patient has or had the following: CVA/TIA Diagnosis No Discharge Core Measures Meds if any: Prescribed or Continued at Discharge Meds if any: NOT Prescribed or Continued at Discharge Venous thromboembolism Inclusion Criteria VTE Diagnosis No VTE Type NONE VTE Confirmed by (Test) NONE Discharge Core Measures - Per Current guidelines, there needs to be overlap - treatment for the first 5 days of Warfarin therapy. - If discharged on Warfarin prior to 5 days of - overlap therapy, the patient will need to be - assessed for post discharge needs including - *Post discharge parental anticoagulation - *Warfarin and/or parental anticoagulation education - *Follow up date to check INR post discharge At least 5 days overlap therapy as Inpatient No Meds if any: Prescribed or Continued at Discharge Note: Overlap Therapy is Warfarin and Anticoagulant Meds if any: NOT Prescribed or Continued at Discharge
[2018-03-19] MEDS ORDERED: UNASYN 3 GM VIAL3 GM IV (16:34)
--- NOTE | 2018-03-19 17:08 | INTERVENTIONAL RADIOLOGY RPT ---
CLINICAL HISTORY: This patient is a 57 years old male with a history of multiple sclerosis and urosepsis, who presents to Interventional Radiology for placement of a single lumen PICC for central venous access. PROCEDURES: 1. Real-time ultrasound-guided access into the right basilic vein after documentation of selected vessel patency, and permanent imaging storing in the patient records. 2. Placement of a PICC. PHYSICIANS: Dr. Maribel Sloan (attending). MEDICATIONS: Lidocaine 1%, 2 mL SQ. CONTRAST: None FLUOROSCOPY TIME: 25 seconds DAP: 400 uGym2 COMPLICATIONS: None ESTIMATED BLOOD LOSS: Scant SPECIMENS: None IMPLANT: 5 Fr Power PICC SITE MARKING: As part of the preprocedure verification policy, a site marking procedure was initiated. Due to the nature the procedure, the insertion site could not be predetermined thus invoking the policy of exemption to site laterality and marking. Insertion site marking was performed in the procedure room in conjunction with imaging confirmation. PROCEDURE NOTE: Informed consent was obtained from the patient prior to the procedure. During this process, the procedure and potential alternatives were explained along with the intended outcome and benefits. The risks of the procedure, including the possibility of an unsuccessful procedure, as well as the risk of not doing the procedure, were discussed. The patient was given the opportunity to ask questions regarding the procedure and appeared competent to make decisions. A signed consent form documenting this discussion was placed in the medical record. A time-out procedure was performed. The patient was placed supine on the fluoroscopy table. Prior to prepping the patient, a limited sonogram of the right arm was performed to choose appropriate access, and this arm was prepped and draped in the usual sterile fashion. All elements of maximal sterile barrier technique followed including use of cap, mask, sterile gown, sterile gloves, a sterile full body drape and hand hygiene. Also followed skin preparation with 2% chlorhexidine for cutaneous antisepsis, and sterile ultrasound preparation with sterile gel and probe cover when applicable. Venous access was achieved into the right basilic vein using ultrasound and fluoroscopic guidance. The 0.018 measuring wire from the PICC was advanced into the cavoatrial junction. The needle was removed and replaced with the peel away sheath. The intravascular length was measured and the catheter was trimmed to the correct length. The inner dilator was removed and the PICC was advanced over the wire into the cavoatrial junction. The peel away sheath and wire were removed. The catheter was tested successfully and secured to the skin with its tip in the cavoatrial junction. A spot image was taken. The patient tolerated the procedure well. FINDINGS: 1. Patent right basilic vein. 2. Successful placement of a 5-Fr single lumen PICC that measures 46 cm in length. IMPRESSION: Successful placement of a PICC. PLAN: 1. The patient was stable after the procedure and was transferred to the interventional recovery area. The patient will be transferred to the floor. 2. The catheter may be used immediately.
[2018-03-19 17:47] VITALS: BP 120/60
== END 2018-03-19 18:45 | DRG 59 ==
LOC: ERH 09:52 → ERHI 13:23 → 2NB 13:23 → EDBEDREQ 15:56 → ENRESERV 16:44 → ENTRNSPT 17:56 → EDTRNSPTSTS 18:01 → EDTRNSPT 18:01 → 2NB 18:10 → CMPTRNSPT 19:12 → 2NB 03-19 18:45
PROVIDERS: Hospitalist; Internal Medicine; Preventive Medicine Addiction Medicine
PROC: B5181ZA Fluoroscopy of Superior Vena Cava using Low Osmolar Contrast, Guidance (ICD-10-PCS; principal; 2018-03-19)
PROC: 02HV33Z Insertion of Infusion Device into Superior Vena Cava, Percutaneous Approach (ICD-10-PCS; principal; 2018-03-19)
DX: G35 Multiple sclerosis (principal); R78.81 Bacteremia; N39.0 Urinary tract infection, site not specified; M48.55XA Collapsed vertebra, not elsewhere classified, thoracolumbar region, initial encounter for fracture; H54.8 Legal blindness, as defined in USA; M81.0 Age-related osteoporosis without current pathological fracture; F41.9 Anxiety disorder, unspecified; B95.61 Methicillin susceptible Staphylococcus aureus infection as the cause of diseases classified elsewhere; G89.29 Other chronic pain; M54.9 Dorsalgia, unspecified; F17.210 Nicotine dependence, cigarettes, uncomplicated; W18.30XA Fall on same level, unspecified, initial encounter; Y92.009 Unspecified place in unspecified non-institutional (private) residence as the place of occurrence of the external cause; R33.9 Retention of urine, unspecified; K59.00 Constipation, unspecified; B96.89 Other specified bacterial agents as the cause of diseases classified elsewhere
CPT/HCPCS: 2NBP; 72148; 36415; 36592; 71046; 72110; 76775; 77001; 81001; 82436; 87040; 87086; 87147; 93005; 93010; 93306; 96365; 96366; 97110-GO; 97162-GP; 97530-GO; C1769; J0696; J1040; J1642; J1644; J3370; J7040; J7060